=== PATIENT | male | born 1940 | race Caucasian/White ===

== ENCOUNTER 2021-01-26 08:30 | Emergency (ER) | payer MEDICARE, SELFPAY ==
[2021-01-26 08:40] VITALS: BP 153/92; PULSE 71; RESP 15; TEMP 36.8; O2SAT 98
[2021-01-26] MEDS: methylPREDNISolone SOD SUCC 125 MG VIAL IV PUSH (09:20)
[2021-01-26] MEDS: FAMOTIDINE 20 MG/2 ML VIAL IV PUSH (09:21)
[2021-01-26] MEDS: diphenhydrAMINE HCl INJ 50 MG/ML VIAL 25 MG IV PUSH (09:25)
[2021-01-26 09:51] LABS: Basophils Percent Auto 0.5 % (0.2-1.2); Eosinophils Absolute Auto 0.4 K/mm3 (0-0.3); Eosinophils Percent Auto 4.4 % (0-4.4); Hematocrit 36.9 % (42.0-52.0); Hemoglobin 12.3 g/dL (14.0-18.0); Immature Granulocyte Absolute 0.03 K/mm3 (0.00-0.031); Immature Granulocyte Percent A 0.4 % (0-0.5); Lymphocytes Absolute Auto 2.25 K/mm3 (0.9-3.2); Lymphocytes Percent Auto 27.3 % (18.3-44.2); Mean Corpuscular HGB Conc 33.3 g/dl (32-36); Mean Corpuscular Hemoglobin 32.4 pg (26-34); Mean Corpuscular Volume 97.1 fl (80-100); Mean Platelet Volume 10.6 fl (7.4-10.4); Monocytes Absolute Auto 0.8 K/mm3 (0.1-0.6); Monocytes Percent Auto 9.7 % (2.6-8.5); Neutrophils Absolute Auto 4.8 K/mm3 (1.3-6.7); Neutrophils Percent Auto 57.7 % (45.5-73.1); Platelet Count Result 197 k/mm3 (150-375); Red Cell Distribution Width 13.2 % (11.5-14.5); White Blood Count 8.2 K/mm3 (4.5-10.0)
[2021-01-26 10:11] LABS: Alanine Aminotransferase 12 U/L (4-50); Albumin Level 3.8 g/dL (3.5-5.1); Alkaline Phosphatase 76 U/L (38-126); Anion Gap 9 mmol/L (8-16); Aspartate Amino Transferase 26 U/L (17-59); Bilirubin,Total 0.6 mg/dL (0.2-1.3); Blood Urea Nitrogen 13 mg/dL (9-20); Carbon Dioxide 22 mmol/L (22-30); Chloride 102 mmol/L (98-107); Cholesterol 147 mg/dL (0-200); Estimated CRCL calculation 77 ml/min; Estimated Glomerular Filt Rate > 60; Glucose 210 mg/dL (65-110); HDL Direct 35 mg/dL; Potassium 3.9 mmol/L (3.4-5.0); Sodium 133 mmol/L (137-145); Triglycerides 238 mg/dL (<150)
--- NOTE | 2021-01-26 10:11 | ED.GENADULT ---
HPI - General Adult General Chief complaint: Unspecified Stated complaint: facial swelling/ itching Time Seen by Provider: 01/26/21 08:31 History of Present Illness HPI narrative: Patient is an 80-year-old male who presents ER for concern for allergic reaction. Reports last night around 4 AM he woke up and he felt like he had a carlisle which he does not have. He was itchy and felt like he was swollen and his felt he was slightly pink. He took some Benadryl which improved the symptoms. Patient still thinks he has speech that is a little bit less clear due to a possibly swollen tongue but he has noted to be breathing or swelling and there is no obvious swelling at this time. He has had no recent change to his medications. PCP recommend he come to the ER to be evaluated. Patient is also requesting that routine blood work that was supposed be drawn today, be drawn in the ER. Related Data Home Medications Medication Instructions Recorded Confirmed antiarthritic combination no.2 900 mg PO 11/17/20 01/11/21 mg tablet cholecalciferol (vitamin D3) 10 10 mcg PO DAILY 11/17/20 01/11/21 mcg (400 unit) capsule metoprolol tartrate 25 mg tablet 25 mg PO DAILY 11/17/20 01/11/21 vitamin B complex 1 tablet PO DAILY 11/17/20 01/11/21 Allergies Allergy/AdvReac Type Severity Reaction Status Date / Time No Known Allergies Allergy Verified 01/26/21 08:47 Review of Systems Review of Systems: All systems reviewed & are unremarkable except as noted in HPI and below Constitutional: Constitutional: Denies chills and Denies fever(s) ENT: Denies lip swelling, Denies nasal congestion, Denies sore throat, Denies throat swelling and Reports tongue swelling Cardiovascular: Cardiovascular: Denies chest pain and Denies rapid heart rate Respiratory: Respiratory: Denies cough and Denies dyspnea Gastrointestinal: Gastrointestinal: Denies abdominal pain, Denies nausea and Denies vomiting PMFSH Past Medical History Medical History 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 One in the 80's and the other shoulder in the s Family History Family History Mother Heart disease Cerebrovascular accident Arthritis Father Diabetes mellitus Social History Social History Smoking status: Former smoker Alcohol intake: former Alcohol use details: quit in 1989 Substance use: never Exam Narrative: GENERAL: Well-appearing, well-nourished, and in no acute distress. HEAD: Normocephalic, atraumatic. ENT: Mucous membranes moist. No appreciable swelling to the face/lip/tongue. Normal posterior oropharynx. Phonating well. CHEST: Clear to auscultation. No respiratory distress. HEART: Regular rate and rhythm. Normal peripheral pulses. ABDOMEN: Soft, nontender, nondistended. EXTREMITIES: Normal range of motion. No edema. SKIN: Warm, dry, no rash. NEURO: Alert and oriented x3. PSYCH: Normal mood and affect. Course Course Emergency Course: Patient resting comfortably. Reports his mouth feels much better since he has been able to drink some water. No evidence of swelling. No slurred speech. Discharge home. Recommend scheduled Pepcid as this may be of benefit. Vital Signs Vital signs: Vital Signs Temperature 98.2 F 01/26/21 08:40 Pulse Rate 71 01/26/21 08:40 Respiratory Rate 15 01/26/21 08:40 Blood Pressure 153/92 H 01/26/21 08:40 Pulse Oximetry 98 01/26/21 08:40
[2021-01-26 10:22] LABS: LDL Cholesterol Direct 63 mg/dL
[2021-01-26 10:51] LABS: Hemoglobin A1C 9.9 % (<5.7)
[2021-01-26 11:19] LABS: Folic Acid 9.9 ng/mL (2.76->20)
[2021-01-26 11:20] VITALS: BP 159/91; PULSE 66; RESP 18; O2SAT 97
[2021-01-26 12:25] VITALS: BP 151/89; PULSE 71; RESP 18; O2SAT 97
[2021-01-26 12:33] LABS: Creatinine Urine 147.3 mg/dL
[2021-01-26 12:39] LABS: MALB Creatinine Ratio 26.5 mg/g (0-30); Microalbumin Urine Random 39.1 mg/L (0-16.7)
== END 2021-01-26 12:26 | disposition home or self-care (01) ==
PROVIDERS: Emergency Provider Emergency Medicine; PCP Internal Medicine
DX: T78.40XA Allergy, unspecified, initial encounter (principal); E11.40 Type 2 diabetes mellitus with diabetic neuropathy, unspecified; I48.91 Unspecified atrial fibrillation; I50.9 Heart failure, unspecified; I11.0 Hypertensive heart disease with heart failure; M81.0 Age-related osteoporosis without current pathological fracture; G20 Parkinson's disease; Z87.891 Personal history of nicotine dependence
CPT/HCPCS: 36415; 80053; 80061; 82043; 82607; 82746; 83036; 84443; 85025; 96374; 96375; 99284; J1200; J2930

== ENCOUNTER 2021-01-26 16:12 | Observation (INO) | payer MEDICARE, SELFPAY ==
--- NOTE | ~2021-01-26 | CT_ITS ---
EXAMINATION: CT BRAIN W/O DATE: 01/26/2021 21:56 INDICATION: TIA TECHNIQUE: Computed tomography (CT) of the head was performed without intravenous contrast. The dose- length product was 605.33 mGy-cm. Automated exposure control and iterative reconstruction technique w ere employed. COMPARISON: No prior studies for comparison. FINDINGS: Decreased brain parenchymal volume for age. There are scattered mild periventricular and hunt bcortical white matter changes, most likely related to small vessel ischemic disease (microangiopathy ). Normal danielson-white differentiation. No acute intracranial hemorrhage, infarction, mass or mass effe ct. No ventriculomegaly or midline shift. Midline sagittal images demonstrate a normal corpus callosum, c raniovertebral junction and sella turcica. Basilar cisterns are patent. Paranasal sinuses are unremarkable. There are bilateral mastoid effusions. No depressed skull fractur es. IMPRESSION: 1. No acute intracranial abnormality. 2: Chronic age-related findings. Reviewed, dictated and finalized at location A.
--- NOTE | ~2021-01-26 | US_ITS ---
EXAMINATION: US carotid duplex BI DATE: 01/27/2021 13:26 INDICATION: Stroke. Ataxia. TECHNIQUE: Grayscale, color Doppler, and pulsed Doppler images of the cervical carotid arteries were obtained. The degree of vessel stenosis is placed in one of the following categories: normal, <50%, 5 0-69%, >=70% but less than near-occlusion, near-occlusion, or total occlusion. Note that percent sten osis relative to normal distal artery lumen diameter is indirectly measured from velocity measurement s as described by Sarkis, et al. Radiology 2003; 229:340-346. COMPARISON: None. FINDINGS: RIGHT: The right common carotid artery (CCA) peak systolic velocity (PSV) is 79 cm/s. The right internal car otid artery (ICA) PSV is 61 cm/s. The right ICA end-diastolic velocity (EDV) is 12 cm/s. The right IC A/CCA PSV ratio is 0.8. Grayscale and color Doppler images yield an estimate of <50% diameter reducti on from plaque in the ICA. There is antegrade flow in the right vertebral artery. LEFT: The left CCA PSV is 58 cm/s. The left ICA PSV is 56 cm/s. The left ICA EDV is 13 cm/s. The left ICA/C CA PSV ratio is 1.0. Grayscale and color Doppler images yield an estimate of <50% diameter reduction from plaque in the ICA. There is antegrade flow in the left vertebral artery. IMPRESSION: 1. <50% stenosis in the right internal carotid artery. 2. <50% stenosis in the left internal carotid artery. Reviewed, dictated and finalized at location A.
--- NOTE | ~2021-01-26 | MR_ITS ---
EXAMINATION: MR brain/brain stem wo con DATE: 01/27/2021 12:48 INDICATION: Transient ischemic attack. Ataxia. Unable to walk. TECHNIQUE: Magnetic resonance imaging (MRI) of the brain and brainstem was performed without intraven ous contrast. Sequences included sagittal and axial T1-weighted FSE, axial diffusion-weighted FS EPI, axial T2*-weighted GRE, axial T2-weighted FLAIR Propeller, and axial T2-weighted Propeller. Apparent diffusion coefficient (ADC) maps were created. COMPARISON: Head CT 01/26/2021 FINDINGS: There is a dystrophic calcification in left parietal lobe. There is no intracranial hemorrh age, acute infarction, or abnormal intracranial mass lesion. There are scattered areas of nonspecific increased T2-weighted signal intensity in the cerebral white matter and corinne. The ventricles are nor mal in size. There is mild mucosal thickening in the ethmoid sinuses. The orbits are normal. There ar e bilateral mastoid effusions. IMPRESSION: 1. Mild nonspecific cerebral white matter disease and pontine disease, which likely represents chroni c small vessel ischemic disease. Reviewed, dictated and finalized at location A. IMPRESSION: 1. Mild nonspecific cerebral white matter disease and pontine disease, which robert cyr represents chronic small vessel ischemic disease.
[2021-01-26 17:03] VITALS: BP 136/78; PULSE 103; RESP 18; TEMP 36.4; O2SAT 100
--- NOTE | 2021-01-26 17:14 | ECG_ITS ---
Measurements Intervals [place] Rate: 89 P: 55 MS: 192 QRS: -19 QRSD: 106 T: -2 QT: 390 QTc: 476 Interpretive Statements SINUS RHYTHM BORDERLINE T WAVE ABNORMALITY- INFERIOR LEADS BASELINE ARTIFACT- I, II, III, AVR, AVL, AVF, V2-V6 BORDERLINE ECG Electronically Signed On 01-26-2021 20:57:15 CDT by Herman Mcclendon D.O.
[2021-01-26 19:06] VITALS: PULSE 112
--- NOTE | 2021-01-26 19:30 | PC.NURSE ---
Assumed care of pt at this time, report taken from Lee Ann ADAIR. Per at bedside, pts symptoms started at approx 1300 this afternoon. reports generalized weakness, confusion, and facial droop. Pt currently A&Ox4, no facial droop noted. Pt denies numbness or tingling, no complaints at this time. Updated pt and family of POC.
[2021-01-26 19:44] LABS: Basophils Percent Auto 0.1 % (0.2-1.2); Hematocrit 39.5 % (42.0-52.0); Immature Granulocyte Absolute 0.05 K/mm3 (0.00-0.031); Immature Granulocyte Percent A 0.6 % (0-0.5); Lymphocytes Absolute Auto 0.75 K/mm3 (0.9-3.2); Lymphocytes Percent Auto 8.3 % (18.3-44.2); Mean Corpuscular HGB Conc 32.9 g/dl (32-36); Mean Corpuscular Volume 97.3 fl (80-100); Mean Platelet Volume 10.8 fl (7.4-10.4); Monocytes Absolute Auto 0.1 K/mm3 (0.1-0.6); Monocytes Percent Auto 1.1 % (2.6-8.5); Neutrophils Absolute Auto 8.1 K/mm3 (1.3-6.7); Neutrophils Percent Auto 89.9 % (45.5-73.1); Platelet Count Result 200 k/mm3 (150-375); Red Blood Count 4.06 M/mm3 (4.6-6.20); Red Cell Distribution Width 13.1 % (11.5-14.5); White Blood Count 9.1 K/mm3 (4.5-10.0)
[2021-01-26 19:58] LABS: Albumin Level 4.1 g/dL (3.5-5.1); Alkaline Phosphatase 78 U/L (38-126); Anion Gap 12 mmol/L (8-16); Aspartate Amino Transferase 37 U/L (17-59); Bilirubin,Total 0.6 mg/dL (0.2-1.3); Blood Urea Nitrogen 17 mg/dL (9-20); Calcium 9.3 mg/dL (8.4-10.2); Carbon Dioxide 19 mmol/L (22-30); Chloride 101 mmol/L (98-107); Estimated CRCL calculation 55 ml/min; Estimated Glomerular Filt Rate > 60; Glucose 366 mg/dL (65-110); Potassium 4.4 mmol/L (3.4-5.0); Sodium 132 mmol/L (137-145)
[2021-01-26 20:11] LABS: Alanine Aminotransferase 40 U/L (4-50)
[2021-01-26 20:14] VITALS: BP 130/82; PULSE 81; RESP 17; O2SAT 95
[2021-01-26 20:24] LABS: Add Urine Microscopic? YES; Appearance Urine Clear (Clear); Bacteria Urine Trace /hpf; Bilirubin Urine Negative (Negative); Blood Urine Negative (Negative); Color Urine Straw (Yellow); Glucose Urine UA 3+ mg/dL (Negative); Ketones Urine Trace mg/dL (Negative); Leukocyte Esterase Ur Negative LEU/UL (Negative); Nitrate Urine Negative (Negative); Protein Urine Negative (Negative); RBC Urine 0-2 /hpf (0-2); Specific Grav Ur 1.016 (1.001-1.035); Urobilinogen Urine Negative mg/dL (<2.0); WBC Urine 0-3 /hpf
[2021-01-26 21:13] LABS: Glucose Point of Care 362 mg/dl (65-105)
--- NOTE | 2021-01-26 21:45 | PC.NURSE ---
Pt to Ct via stretcher at this time.
[2021-01-26 22:02] VITALS: BP 161/88; PULSE 78; RESP 19; O2SAT 95
--- NOTE | 2021-01-26 23:04 | ED.WEAKNESS ---
HPI - Weakness General Chief complaint: Weakness Stated complaint: Sent By Dr Ray Time Seen by Provider: 01/26/21 18:40 Source: patient Mode of arrival: EMS Limitations: no limitations History of Present Illness HPI Narrative: 80-year-old with a history of Parkinson's, diabetes, A. fib TIA was brought in from home with complaints of inability to walk and unable to balance himself. Patient's reports that they were in the ER earlier this morning for allergic reaction and was later discharged home. Soon after he reached home patient was unable to get out of the car ambulate even few steps. However she managed to take inside the house with the chair patient was leaning towards the right, had right facial droop. Patient states that she called 911 and was later brought here to the ER. Upon arrival to the ER his symptoms much subsided. He denies any headache. His reports that she cannot manage him at home as he is unable to walk. She wants him to be admitted to the hospital for prison home placement. Patient presently denies any chest pain or shortness of breath, nausea or vomiting. MD Complaint: difficulty walking Onset (ago): hour(s) (2) Duration: constant Location: LLE and RLE Migration: none Severity: moderate Relieving factors: none Exacerbating factors: none Associated symptoms: denies other symptoms Related Data Home Medications Medication Instructions Recorded Confirmed antiarthritic combination no.2 900 mg PO 11/17/20 01/11/21 mg tablet cholecalciferol (vitamin D3) 10 10 mcg PO DAILY 11/17/20 01/11/21 mcg (400 unit) capsule metoprolol tartrate 25 mg tablet 25 mg PO DAILY 11/17/20 01/11/21 vitamin B complex 1 tablet PO DAILY 11/17/20 01/11/21 Allergies Allergy/AdvReac Type Severity Reaction Status Date / Time No Known Allergies Allergy Verified 01/26/21 08:47 Review of Systems Review of Systems: All systems reviewed & are unremarkable except as noted in HPI and below Constitutional: Constitutional: Reports no additional constitutional complaints Eyes: Eyes: Reports no additional eye complaints ENT: Reports system reviewed and no additional complaints, except as documented Cardiovascular: Cardiovascular: Reports no additional cardiovascular complaints Respiratory: Respiratory: Reports no additional respiratory complaints Gastrointestinal: Gastrointestinal: Reports no additional gastrointestinal complaints Musculoskeletal: Musculoskeletal: Reports as per HPI Neurologic: Reports as per HPI PMFSH Past Medical History Medical History 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 One in the 's and the other shoulder in the 's Family History Family History Mother Heart disease Cerebrovascular accident Arthritis Father Diabetes mellitus Social History Social History Smoking status: Former smoker Alcohol intake: former Alcohol use details: quit in 1989 Substance use: never Exam Narrative: GENERAL: Well-appearing, well-nourished, and in no acute distress. HEAD: Normocephalic, atraumatic. EYES: PERRLA and EOMI.. NECK: Supple. CHEST: Clear to auscultation. No respiratory distress. HEART: Regular rate and rhythm. No murmur heard. Normal peripheral pulses. ABDOMEN: Soft, nontender, nondistended, normal active bowel sounds. EXTREMITIES: Normal range of motion. No edema. SKIN: Warm, dry, no rash. NEURO: No foc
--- NOTE | 2021-01-26 23:17 | PM.IMHP ---
H&P: HPI History of Present Illness Date/Time: 01/26/21 23:17 Chief Complaint: unable to walk Narrative: 80-year-old with a history of Parkinson's disease, diabetes, A. fib on anticoagulation, history of recurrent TIA was brought in from home with complaints of inability to walk and unable to balance himself. patient was here earlier in the morning for allergy reaction and was noted to have swelling in his face which improved with treatment and was discharged home. Soon after he reached home he was unable to get out of the car and ambulate even few steps. His noted to have leaning towards the right side along with right facial droop per his who brought her back to the ER by calling EMS. upon arrival in the ER his symptoms are already subsided and was noted to have NIH scale of 0. His CT scan head has no acute intracranial abnormality along with chronic age-related findings. 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 With him being able to walk decision was made to getting admitted for possible placement . Review of Systems Review of Systems: - CONSTITUTIONAL: Denies weight loss, fever and chills. - HEENT: Denies changes in vision and hearing - RESPIRATORY: Denies SOB and cough. - CV: Denies palpitations and CP. - GI: Denies abdominal pain, nausea, vomiting and diarrhea. - : Denies dysuria and urinary frequency. - MSK: Denies myalgia and joint pain. - SKIN: Denies rash and pruritus. - NEUROLOGICAL: Denies headache and syncope. - PSYCHIATRIC: Denies recent changes in mood. Denies anxiety and depression. 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 One in the 80's and the other shoulder in the 's Family History Family History Mother Heart disease Cerebrovascular accident Arthritis Father Diabetes mellitus Social History Social History Years smoked: 30 Smoking status: Former smoker Tobacco type: pipe and cigars Alcohol intake: never Alcohol use details: quit in 1989 Substance use: never Spiritual care concerns: No Meds Home Medications and Allergies Home Medications Medication Instructions Recorded Confirmed Type cholecalciferol (vitamin D3) 10 10 mcg PO DAILY 11/17/20 01/27/21 History mcg (400 unit) capsule metoprolol tartrate 25 mg tablet 12.5 mg PO DAILY 11/17/20 01/27/21 History vitamin B complex 1 tablet PO DAILY 11/17/20 01/27/21 History glipizide 5 mg tablet 10 mg PO BID #120 tablet 12/03/20 01/27/21 Rx rivastigmine tartrate 1.5 mg 1.5 mg PO BID #60 cap 12/03/20 01/27/21 Rx capsule tamsulosin 0.4 mg capsule 0.4 mg PO DAILY #90 cap 12/03/20 01/27/21 Rx insulin lispro 100 unit/mL 1 sliding scale dose SUBCUT 12/06/20 01/27/21 Rx subcutaneous cartridge USEASDIRECTD #15 ml metformin 1,000 mg tablet 1,000 mg PO BID #180 tablet 12/14/20 01/27/21 Rx rivaroxaban 20 mg tablet 20 mg PO DAILY #90 tablet 12/21/20 01/27/21 Rx omeprazole 20 mg capsule,delayed 20 mg PO .qod #45 cap 12/28/20 01/27/21 Rx release furosemide 40 mg tablet 40 mg PO QAM #90 tablet 01/18/21 01/27/21 Rx pravastatin 20 mg tablet 20 mg PO DAILY #90 tablet 01/18/21 01/27/21 Rx carbidopa 25 mg-
--- NOTE | 2021-01-26 23:25 | PC.NURSE ---
Pt transferred to bedside commode with one assist. Steady on feet.
[2021-01-27] VITALS (12 sets, daily range): BP systolic 128–144; BP diastolic 69–90; PULSE 68–95; RESP 16–22; TEMP 35.7–36.8; O2SAT 96–100; BMI 28.7
--- NOTE | 2021-01-27 | ECHO_ITS ---
Patient Info Name: Duran Jansen Age: 80 years : 1940 Gender: Male Ht: 71 in Wt: 205 lbs BSA: 2.18 m2 HR: 67 bpm BP: 140 / 80 mmHg Technical Quality: Good Exam Date: 01/27/2021 9:28 AM Exam Location: [facility] Pulmonary Patient Status: Inpatient Admit Date: 01/26/2021 Staff Ordering Physician: Vikash Del Angel MD [employer] Technician: Tracy Majano RDCS Attending Provider: Vikash Del Angel MD Exam Type: CA echo doppler color flow Study Info Indications - STROKE Complete two-dimensional, color flow and Doppler transthoracic echocardiogram is performed. Summary 1. Complete two-dimensional, color flow and Doppler transthoracic echocardiogram is performed. 2. Left ventricular chamber dimension is normal. 3. Left ventricular systolic function is normal, estimated at 60-65%. 4. There is mildly increased left ventricular wall thickness. 5. The left ventricular diastolic function is abnormal. 6. E/e' 12 is mildly elevated. 7. Global longitudinal strain is abnormal at -12.0%. 8. Left atrial chamber dimension is mildly enlarged. 9. There is moderate aortic valve sclerosis. 10. There is mild aortic valve stenosis with a peak velocity of 247 cm/s, mean gradient of 10 mmHg, and aortic valve area of 1.7 cm2. 11. There is trace aortic valve regurgitation. 12. The mitral valve has moderately calcified annulus. 13. There is mild mitral valve regurgitation. 14. There is trace tricuspid valve regurgitation. 15. No pulmonary hypertension, estimated pulmonary arterial systolic pressure is 34 mmHg. 16. The aortic root size at the sinus of Valsalva is borderline dilated at 4.1 cm. Left Ventricle E/e' 12 is mildly elevated. Global longitudinal strain is abnormal at -12.0%. Left ventricular chamber dimension is normal. Left ventricular systolic function is normal, estimated at 60-65%. There is mildly increased left ventricular wall thickness. The left ventricular diastolic function is abnormal. Right Ventricle Right ventricular chamber dimension is normal. Right ventricular systolic function is normal. Left Atria Left atrial chamber dimension is mildly enlarged. Right Atria Right atrial chamber dimension is normal. Aortic Valve The aortic valve is trileaflet. There is moderate aortic valve sclerosis. There is mild aortic valve stenosis with a peak velocity of 247 cm/s, mean gradient of 10 mmHg, and aortic valve area of 1.7 cm2. There is trace aortic valve regurgitation. Pulmonic Valve There is no pulmonic regurgitation. Mitral Valve The mitral valve has moderately calcified annulus. There is no mitral valve stenosis. There is mild mitral valve regurgitation. Tricuspid Valve There is trace tricuspid valve regurgitation. No pulmonary hypertension, estimated pulmonary arterial systolic pressure is 34 mmHg. Pericardium/Pleural There is no pericardial effusion. Inferior Vena Cava Normal inferior vena cava with >50% collapse upon inspiration consistent with normal right atrial pressure, 5 mmHg. Aorta The aortic root size at the sinus of Valsalva is borderline dilated at 4.1 cm. Left Ventricular Outflow Tract Name Value Normal LVOT 2D LVOT Diameter 2.0 cm L
--- NOTE | 2021-01-27 00:49 | ADMGEN ---
This patient, Duran Jansen, was admitted to Medical Room 248-. Patient/family oriented to hospital policies and general routines including ID bracelet, bed and alarms, visiting hours, pain management, procedures, bathroom and other care routines, personal items, smoking policy, room service/diet, and visiting hours. Information on how to activate the Rapid Response Team has been discussed. Patient/Family are encouraged to report perceived risks to care and to ask questions if they do not understand what they are told or what they should do.
[2021-01-27 02:25] LABS: Glucose Point of Care 394 mg/dl (65-105)
[2021-01-27] MEDS: INSULIN ASPART (*BKC) 100 UNITS/ML SUB-Q ×4 (04:29→17:43)
[2021-01-27 08:11] LABS: Glucose Point of Care 285 mg/dl (65-105)
[2021-01-27] MEDS: CARBIDOPA/LEVODOPA 25/100 MG TABLET 1 TABLET PO ×4 (08:13→20:25)
[2021-01-27] MEDS: glipiZIDE 5 MG TABLET 10 MG PO (08:13)
[2021-01-27] MEDS: metFORMIN HCL 500 MG TABLET 1000 MG PO ×2 (08:13→17:34)
[2021-01-27] MEDS: PRAVASTATIN SODIUM 20 MG TABLET PO (08:14)
[2021-01-27] MEDS: VITAMIN B COMPLEX CAPSULE 1 CAP PO (08:14)
[2021-01-27] MEDS: PANTOPRAZOLE 40 MG TABLET PO (08:14)
[2021-01-27] MEDS: LOSARTAN POTASSIUM 100 MG TABLET PO (08:14)
[2021-01-27] MEDS: CHOLECALCIFEROL 400 UNITS TABLET (VIT D) PO (08:14)
[2021-01-27] MEDS: TAMSULOSIN HCL 0.4 MG CAPSULE PO (08:14)
[2021-01-27] MEDS: RIVASTIGMINE TARTRATE 1.5 MG CAPSULE PO ×2 (10:15→20:25)
[2021-01-27] MEDS: METOPROLOL SUCCINATE EXT REL 12.5 MG TABCR PO (10:15)
[2021-01-27 10:51] LABS: Glucose Point of Care 318 mg/dl (65-105)
[2021-01-27 12:21] LABS: Glucose Point of Care 313 mg/dl (65-105)
--- NOTE | 2021-01-27 13:17 | PM.IMPN ---
Progress Note: A&P Assessment and Plan (1) TIA (transient ischemic attack): Code(s): G45.9 - Transient cerebral ischemic attack, unspecified Status: Acute Assessment and Plan: Hx of recurrent TIAs in the past MRI brain-->Mild nonspecific cerebral white matter disease and pontine disease, which likely represents chronic small vessel ischemic disease Carotid ultrasound pending Echocardiogram reviewed EF 60-65% Continue rivaroxaban PT/OT Hold diuretics S/p gentle IV fluid (2) Unsteady gait: Code(s): R26.81 - Unsteadiness on feet Status: Acute Assessment and Plan: Inability to walk on yesterday for transient period, unclear etiology Could be related to his underlying Parkinson's disease CT head negative PT/OT Will need rehab at d/c (3) Arthritis of both knees: Code(s): M17.0 - Bilateral primary osteoarthritis of knee Status: Acute Assessment and Plan: Supportive care PT/OT (4) Hyperlipidemia: Code(s): E78.5 - Hyperlipidemia, unspecified Status: Acute (5) CHF (congestive heart failure): Code(s): I50.9 - Heart failure, unspecified Status: Acute Assessment and Plan: No acute exacerbation ECHO reviewed Monitor for s/s of overload (6) Parkinson disease: Code(s): G20 - Parkinson's disease Status: Acute Assessment and Plan: Continue Sinemet (7) A-fib: Code(s): I48.91 - Unspecified atrial fibrillation Status: Acute Assessment and Plan: On Xarelto continue same Monitor (8) Diabetes mellitus, insulin dependent (IDDM), controlled: Status: Acute Assessment and Plan: Hx of diabetic neuropathy Resume home meds SSI, accuchecks Monitor Additional Plan # DVT prophylaxis already on rivaroxaban # Full code status Subjective Date/time seen: 01/27/21 13:17 Interval history: Pt seen and evaluated; labs and diagnostic reports reviewed; no acute events overnight; pt denies any new complaints Review of Systems Review of Systems: All systems reviewed & are unremarkable except as noted in HPI and below Exam Narrative: GENERAL: Well-appearing, well-nourished, and in no acute distress. HEAD: Normocephalic, atraumatic. EYES: PERRLA and EOMI.. NECK: Supple. Nontender CHEST: Clear to auscultation. No respiratory distress. HEART: Regular rate and rhythm. No murmur heard. Normal peripheral pulses. ABDOMEN: Soft, nontender, nondistended, normal active bowel sounds. EXTREMITIES: Normal range of motion. No edema. SKIN: Warm, dry, no rash. NEURO: No focal deficits. Alert and oriented x3. PSYCH: Normal mood and affect. Objective Data Vital Signs Vital Signs: Vital Signs - 24 hr 01/26/21 17:03 01/26/21 19:06 01/26/21 20:14 Temperature 36.4 C Pulse Rate 103 H 112 H 81 Respiratory Rate 18 17 Blood Pressure 136/78 130/82 Pulse Oximetry 100 95 01/26/21 22:02 01/27/21 00:00 01/27/21 02:17 Temperature 36.4 C Pulse Rate 78 90 90 Respiratory Rate 19 20 Blood Pressure 161/88 H 141/86 H Pulse Oximetry 95 97 01/27/21 04:00 01/27/21 05:09 01/27/21 08:00 Temperature 36.1 C L 36.1 C L Pulse Rate 89 95 72 Respiratory Rate 22 H 22 H Blood Pressure 140/80 140/80 Pulse Oximetry 96 96 01/27/21 10:15 Temperature Pulse Rate 95 Respiratory Rate Blood Pressure Pulse Oximetry Intake/Output Intake/Output: Intake & Output 01/24/21 01/25/21 01/26/21 01/27/21 23:59 23:59 23:59 23:59 Intake Total 510 Balance 510 Meds/Results Medications: Active Medications Generic Name Dose Route Start Last Admin Trade Name Freq PRN Reason Stop Dose Admin Acetaminophen 650 mg 01/26/21 22:57 Acetaminophen 325 Mg Tablet PO Q4H PRN Mild Pain (1-3) or Fever Carbidopa/Levodopa 1 tablet 01/27/21 08:00 01/27/21 08:13 Carbidopa/Levodopa 25/100 Mg Tablet PO 1 tablet 0800,1200,1700,2100 ALEX Administration Dextrose 12.5 gm
[2021-01-27] MEDS: ACETAMINOPHEN 500 MG TABLET 1000 MG PO (14:39)
[2021-01-27] MEDS: diphenhydrAMINE HCl INJ 50 MG/ML VIAL 25 MG IV PUSH (14:41)
[2021-01-27 14:56] LABS: Glucose Point of Care 283 mg/dl (65-105)
[2021-01-27] MEDS: methylPREDNISolone SOD SUCC 40 MG VIAL IV PUSH (16:04)
[2021-01-27 16:49] LABS: EDCOVIDSCREEN Negative (Negative)
[2021-01-27] MEDS: RIVAROXABAN 20 MG TABLET PO (17:34)
[2021-01-27 17:47] LABS: Glucose Point of Care 350 mg/dl (65-105)
[2021-01-27] MEDS: FAMOTIDINE 20 MG TABLET PO (20:25)
[2021-01-27] MEDS: diphenhydrAMINE HCl CAP 25 MG CAPSULE PO (20:25)
[2021-01-27 20:56] LABS: Glucose Point of Care 387 mg/dl (65-105)
[2021-01-27] MEDS: predniSONE 20 MG TABLET 40 MG PO (22:42)
[2021-01-27] MEDS: INSULIN GLARGINE (*BKC) 100 UNITS/ML 10 UNITS SUB-Q (22:42)
[2021-01-27] MEDS: LORazepam INJ (*CRX) 2 MG/ML VIAL 0.5 MG IV PUSH (23:52)
[2021-01-28] VITALS: PULSE 104
[2021-01-28 03:25] LABS: Glucose Point of Care 339 mg/dl (65-105)
[2021-01-28 04:00] VITALS: PULSE 67
[2021-01-28 05:29] VITALS: BP 118/74; PULSE 71; RESP 16; TEMP 36.7; O2SAT 98
[2021-01-28] MEDS: diphenhydrAMINE HCl CAP 25 MG CAPSULE PO ×2 (06:04→13:44)
[2021-01-28 06:42] LABS: Glucose Point of Care 289 mg/dl (65-105)
[2021-01-28] MEDS: INSULIN ASPART (*BKC) 100 UNITS/ML SUB-Q ×2 (07:54→11:51)
[2021-01-28 08:00] VITALS: BP 144/62; PULSE 75; PULSE 92; PULSE 96; RESP 16; TEMP 36.4; O2SAT 98
[2021-01-28] MEDS: METOPROLOL SUCCINATE EXT REL 12.5 MG TABCR PO (08:00)
[2021-01-28] MEDS: CHOLECALCIFEROL 400 UNITS TABLET (VIT D) PO (08:01)
[2021-01-28] MEDS: FAMOTIDINE 20 MG TABLET PO (08:01)
[2021-01-28] MEDS: VITAMIN B COMPLEX CAPSULE 1 CAP PO (08:01)
[2021-01-28] MEDS: LOSARTAN POTASSIUM 100 MG TABLET PO (08:01)
[2021-01-28] MEDS: PRAVASTATIN SODIUM 20 MG TABLET PO (08:01)
[2021-01-28] MEDS: TAMSULOSIN HCL 0.4 MG CAPSULE PO (08:01)
[2021-01-28] MEDS: metFORMIN HCL 500 MG TABLET 1000 MG PO (08:02)
[2021-01-28] MEDS: CARBIDOPA/LEVODOPA 25/100 MG TABLET 1 TABLET PO ×2 (08:02→11:52)
[2021-01-28] MEDS: RIVASTIGMINE TARTRATE 1.5 MG CAPSULE PO (08:02)
[2021-01-28] MEDS: predniSONE 20 MG TABLET 40 MG PO (08:35)
[2021-01-28 09:56] LABS: Anion Gap 11 mmol/L (8-16); Blood Urea Nitrogen 26 mg/dL (9-20); Calcium 9.3 mg/dL (8.4-10.2); Carbon Dioxide 21 mmol/L (22-30); Chloride 100 mmol/L (98-107); Estimated CRCL calculation 61 ml/min; Estimated Glomerular Filt Rate > 60; Glucose 392 mg/dL (65-110); Potassium 4.8 mmol/L (3.4-5.0); Sodium 132 mmol/L (137-145)
[2021-01-28 11:49] LABS: Glucose Point of Care 361 mg/dl (65-105)
[2021-01-28 12:00] VITALS: BP 136/84; PULSE 92; RESP 16; TEMP 36.1; O2SAT 97
[2021-01-28 12:04] LABS: Glucose Point of Care 397 mg/dl (65-105)
[2021-01-28 14:33] LABS: Glucose Point of Care 413 mg/dl (65-105)
[2021-01-28] MEDS: INSULIN ASPART (*BKC) 100 UNITS/ML 11 UNITS SUB-Q (14:40)
--- NOTE | 2021-01-28 15:38 | PM.DS ---
DS: Admitting Diagnosis Discharge Date 01/28/21 Admitting Diagnosis unable to walk DS: Discharge Diagnosis Discharge Diagnosis (1) TIA (transient ischemic attack): Code(s): G45.9 - Transient cerebral ischemic attack, unspecified Status: Acute Assessment and Plan: Hx of recurrent TIAs in the past MRI brain-->Mild nonspecific cerebral white matter disease and pontine disease, which likely represents chronic small vessel ischemic disease Carotid ultrasound pending Echocardiogram reviewed EF 60-65% Continue rivaroxaban PT/OT Hold diuretics S/p gentle IV fluid (2) Unsteady gait: Code(s): R26.81 - Unsteadiness on feet Status: Acute Assessment and Plan: Inability to walk on yesterday for transient period, unclear etiology Could be related to his underlying Parkinson's disease CT head negative PT/OT Will need rehab at d/c (3) Arthritis of both knees: Code(s): M17.0 - Bilateral primary osteoarthritis of knee Status: Acute Assessment and Plan: Supportive care PT/OT (4) Hyperlipidemia: Code(s): E78.5 - Hyperlipidemia, unspecified Status: Acute (5) CHF (congestive heart failure): Code(s): I50.9 - Heart failure, unspecified Status: Acute Assessment and Plan: No acute exacerbation ECHO reviewed Monitor for s/s of overload (6) Parkinson disease: Code(s): G20 - Parkinson's disease Status: Acute Assessment and Plan: Continue Sinemet (7) A-fib: Code(s): I48.91 - Unspecified atrial fibrillation Status: Acute Assessment and Plan: On Xarelto continue same Monitor (8) Diabetes mellitus, insulin dependent (IDDM), controlled: Status: Acute Assessment and Plan: Hx of diabetic neuropathy Resume home meds SSI, accuchecks Monitor DS: Summary Hospital Course Hospital Course: Mr. Jansen is an 80-year-old with a history of Parkinson's disease, diabetes, A. fib on anticoagulation, history of recurrent TIA was brought in from home with complaints of inability to walk and unable to balance himself. Patient was here earlier on day of admission for allergic reaction and was noted to have swelling in his face which improved with treatment and was discharged home. Soon after he reached home he was unable to get out of the car and ambulate even few steps. His noted to have leaning towards the right side along with right facial droop per his who brought her back to the ER by calling EMS. upon arrival in the ER his symptoms are already subsided and was noted to have NIH scale of 0. His CT scan head has no acute intracranial abnormality along with chronic age-related findings. He normally lives at home with his being his cloth beamer. With him being able to walk decision was made to getting admitted for possible placement. He has history of TIA therefore MRI of the brain was ordered to rule out any acute disease. MRI was consistent with chronic small vessel ischemic disease. Bilateral carotid duplex showed less than 50 percent stenosis. Echocardiogram showed EF of 60-65%. He was treated with IVF and physical therapy and occupational therapy. He is stable and will discharge to SNF today. Time Spent with Patient Time attestation: Total time spent providing and/or coordinating discharge services: Time spent: Greater than 30 minutes Exam Narrative: GENERAL: Well-appearing, well-nourished, and in no acute distress. HEAD: Normocephalic, atraumatic. EYES: PERRLA and EOMI.. NECK: Supple. Nontender CHEST: Clear to auscultation. No respiratory distress. HEART: Regular rate and rhythm. No murmur heard. Normal peripheral pulses. ABDOMEN: Soft, nontender, nondistended, normal active bowel sounds. EXTREMITIES: Normal range of motion. No edema. SKIN: Warm, dry, no rash. NEURO: No focal deficits. Alert and oriented x3. PSYCH: Normal mood and affect. DS: Data Data Completed and Pending Labs on day o
== END 2021-01-28 15:20 ==
LOC: ANHED 23:05 → ANH2MED 01-27 00:48
PROVIDERS: Nurse Practitioner Adult Health; Admitting Provider Internal Medicine; Emergency Provider Family Medicine; PCP Internal Medicine; Visit Provider Internal Medicine Nephrology
DX: G45.9 Transient cerebral ischemic attack, unspecified (principal); R26.81 Unsteadiness on feet; M17.0 Bilateral primary osteoarthritis of knee; E78.5 Hyperlipidemia, unspecified; I11.0 Hypertensive heart disease with heart failure; I50.9 Heart failure, unspecified; E11.42 Type 2 diabetes mellitus with diabetic polyneuropathy; G20 Parkinson's disease; I48.91 Unspecified atrial fibrillation; Z86.73 Personal history of transient ischemic attack (TIA), and cerebral infarction without residual deficits; Z79.4 Long term (current) use of insulin; Z79.01 Long term (current) use of anticoagulants; Z20.822 Contact with and (suspected) exposure to COVID-19
CPT/HCPCS: 36415; 70450; 70551; 80048; 80053; 80061; 81001; 82043; 82607; 82746; 82948; 83036; 84443; 85025; 87426; 93005; 93306; 93880; 96374; 96375; 97161; 97165; 97530; 97535; 99284; 99285; A9270; C9803; G0378; J1200; J1815; J2060; J2920; J2930; J7512

== ENCOUNTER 2021-02-16 10:10 | Outpatient (NON) | payer MEDICARE, SELFPAY ==
[2021-02-16 10:41] LABS: Basophils Absolute Auto 0.1 K/mm3 (0.0-0.1); Basophils Percent Auto 0.7 % (0.2-1.2); Eosinophils Absolute Auto 0.5 K/mm3 (0-0.3); Eosinophils Percent Auto 6.9 % (0-4.4); Hematocrit 35.3 % (42.0-52.0); Hemoglobin 12.1 g/dL (14.0-18.0); Immature Granulocyte Absolute 0.03 K/mm3 (0.00-0.031); Immature Granulocyte Percent A 0.4 % (0-0.5); Lymphocytes Absolute Auto 1.88 K/mm3 (0.9-3.2); Lymphocytes Percent Auto 27.6 % (18.3-44.2); Mean Corpuscular HGB Conc 34.3 g/dl (32-36); Mean Corpuscular Hemoglobin 32.2 pg (26-34); Mean Corpuscular Volume 93.9 fl (80-100); Mean Platelet Volume 10.6 fl (7.4-10.4); Monocytes Absolute Auto 0.5 K/mm3 (0.1-0.6); Monocytes Percent Auto 6.9 % (2.6-8.5); Neutrophils Absolute Auto 3.9 K/mm3 (1.3-6.7); Neutrophils Percent Auto 57.5 % (45.5-73.1); Platelet Count Result 209 k/mm3 (150-375); Red Blood Count 3.76 M/mm3 (4.6-6.20); White Blood Count 6.8 K/mm3 (4.5-10.0)
[2021-02-16 10:50] LABS: Alanine Aminotransferase 10 U/L (4-50); Albumin Level 3.8 g/dL (3.5-5.1); Alkaline Phosphatase 87 U/L (38-126); Anion Gap 11 mmol/L (8-16); Aspartate Amino Transferase 25 U/L (17-59); Bilirubin,Total 0.6 mg/dL (0.2-1.3); Blood Urea Nitrogen 11 mg/dL (9-20); Calcium 8.7 mg/dL (8.4-10.2); Carbon Dioxide 24 mmol/L (22-30); Chloride 105 mmol/L (98-107); Cholesterol 129 mg/dL (0-200); Estimated Glomerular Filt Rate > 60; Glucose 202 mg/dL (65-110); HDL Direct 33 mg/dL; Potassium 3.7 mmol/L (3.4-5.0); Sodium 140 mmol/L (137-145); Triglycerides 242 mg/dL (<150)
[2021-02-16 10:54] LABS: Hemoglobin A1C 10.2 % (<5.7)
[2021-02-16 10:57] LABS: Creatinine Urine 166.4 mg/dL
[2021-02-16 11:01] LABS: LDL Cholesterol Direct 62 mg/dL
[2021-02-16 11:02] LABS: MALB Creatinine Ratio 21.3 mg/g (0-30); Microalbumin Urine Random 35.5 mg/L (0-16.7)
[2021-02-16 11:56] LABS: Folic Acid 13.8 ng/mL (2.76->20)
== END 2021-02-16 10:11 | disposition home or self-care (01) ==
PROVIDERS: Visit Provider Internal Medicine
DX: E11.9 Type 2 diabetes mellitus without complications (principal); I11.0 Hypertensive heart disease with heart failure; N40.0 Benign prostatic hyperplasia without lower urinary tract symptoms; G20 Parkinson's disease
CPT/HCPCS: 80053; 80061; 82043; 82607; 82746; 83036; 84443; 85025

== ENCOUNTER 2021-08-18 07:16 | Outpatient (CLI) | payer MEDICARE, SELFPAY ==
[2021-08-18 08:04] LABS: Basophils Percent Auto 0.5 % (0.2-1.2); Eosinophils Absolute Auto 0.2 K/mm3 (0-0.3); Hematocrit 35.1 % (42.0-52.0); Hemoglobin 11.6 g/dL (14.0-18.0); Immature Granulocyte Absolute 0.02 K/mm3 (0.00-0.031); Immature Granulocyte Percent A 0.3 % (0-0.5); Lymphocytes Absolute Auto 2.26 K/mm3 (0.9-3.2); Lymphocytes Percent Auto 30.8 % (18.3-44.2); Mean Corpuscular Hemoglobin 31.6 pg (26-34); Mean Corpuscular Volume 95.6 fl (80-100); Mean Platelet Volume 10.3 fl (7.4-10.4); Monocytes Absolute Auto 0.5 K/mm3 (0.1-0.6); Monocytes Percent Auto 7.1 % (2.6-8.5); Neutrophils Absolute Auto 4.3 K/mm3 (1.3-6.7); Neutrophils Percent Auto 58.3 % (45.5-73.1); Platelet Count Result 212 k/mm3 (150-375); Red Blood Count 3.67 M/mm3 (4.6-6.20); White Blood Count 7.3 K/mm3 (4.5-10.0)
[2021-08-18 08:05] LABS: Hemoglobin A1C 8.5 % (<5.7)
[2021-08-18 08:06] LABS: Alanine Aminotransferase 20 U/L (4-50); Albumin Level 3.9 g/dL (3.5-5.1); Alkaline Phosphatase 78 U/L (38-126); Anion Gap 9 mmol/L (8-16); Aspartate Amino Transferase 29 U/L (17-59); Bilirubin,Total 0.5 mg/dL (0.2-1.3); Blood Urea Nitrogen 17 mg/dL (9-20); Calcium 8.6 mg/dL (8.4-10.2); Carbon Dioxide 22 mmol/L (22-30); Chloride 108 mmol/L (98-107); Cholesterol 147 mg/dL (0-200); Estimated Glomerular Filt Rate > 60; Glucose 182 mg/dL (65-110); HDL Direct 39 mg/dL; Potassium 3.6 mmol/L (3.4-5.0); Sodium 139 mmol/L (137-145); Triglycerides 179 mg/dL (<150)
[2021-08-18 08:18] LABS: LDL Cholesterol Direct 68 mg/dL
[2021-08-18 08:20] LABS: Creatinine Urine 177.4 mg/dL
[2021-08-18 08:25] LABS: MALB Creatinine Ratio 30.7 mg/g (0-30); Microalbumin Urine Random 54.4 mg/L (0-16.7)
[2021-08-18 08:38] LABS: Prostate Specific Antigen 0.5 ng/mL (< OR = 4.0)
== END 2021-08-18 07:17 | disposition home or self-care (01) ==
LOC: ANHLAB 07:27
PROVIDERS: PCP Internal Medicine; Visit Provider Internal Medicine
DX: Z12.5 Encounter for screening for malignant neoplasm of prostate (principal); M25.561 Pain in right knee; M25.562 Pain in left knee; I11.0 Hypertensive heart disease with heart failure; I50.9 Heart failure, unspecified; N40.0 Benign prostatic hyperplasia without lower urinary tract symptoms; Z51.81 Encounter for therapeutic drug level monitoring; Z79.899 Other long term (current) drug therapy
CPT/HCPCS: 36415; 80053; 80061; 82043; 82607; 82746; 83036; 84153; 84443; 85025; G0103

== ENCOUNTER 2022-04-23 11:15 | Inpatient (IN) | payer MEDICARE, MEDICAID, SELFPAY ==
--- NOTE | ~2022-04-23 | US_ITS ---
EXAMINATION:US venous doppler LE BI INDICATION:Leg edema TECHNIQUE: Multiple grayscale, color flow and Doppler images of the right and left lower extremity de ep venous systems were obtained and reviewed. COMPARISON:No prior studies for comparison. FINDINGS: The common femoral, superficial femoral and popliteal veins demonstrate normal respiratory variation, augmentation and compressibility. Color flow is also seen within the posterior tibial, pe roneal, greater saphenous and profunda veins. IMPRESSION: 1: No lower extremity deep venous thrombosis. Reviewed, dictated and finalized at location A. ONAL SALES TRAINER
--- NOTE | ~2022-04-23 | MR_ITS ---
EXAMINATION: MR brain/brain stem wo con DATE: 04/24/2022 13:44 INDICATION: Lower extremity weakness TECHNIQUE: Magnetic resonance imaging (MRI) of the brain and brainstem was performed without intraven ous contrast. Sequences included sagittal and axial T1-weighted SE, axial diffusion-weighted FS SE, a xial T2*-weighted GRE, axial 3D SWAN, axial T2-weighted FLAIR, and axial T2-weighted FSE. Apparent di ffusion coefficient (ADC) maps were created. COMPARISON: Head CT dated 04/23/2022 and brain MR dated 02/06/2021 FINDINGS: There are no areas of restricted diffusion to suggest acute infarction. No intracranial hemorrhage or abnormal intracranial mass lesion. Unchanged tiny focus of susceptibility artifact corresponding to a tiny dystrophic calcification in the left parietal lobe. There are scattered areas of nonspecific i ncreased T2-weighted signal intensity in the corinne and cerebral white matter, predominantly involving the deep and periventricular white matter. There are no intraparenchymal signal abnormalities seen on the other pulse sequences. Symmetric prominence of the sulci and ventricles consistent with moderate age-appropriate diffuse cerebral volume loss. There are no abnormal extra-axial fluid collections. F low voids are seen in the cerebral arteries on the T2-weighted sequences consistent with their expect ed patency. Prominent mucosal thickening in the left maxillary and sphenoid sinuses. Visualized orbit s and soft tissues are unremarkable. IMPRESSION: 1. No acute intracranial process. 2. Moderate scattered nonspecific cerebral and pontine white matter hypoattenuation consistent with c hronic small vessel ischemic disease. Reviewed, dictated and finalized at location A. DETASSELER IMPRESSION: 1. No acute intracranial process. 2. Moderate scattered nonspecific cerebral and pontine white matter hypoattenua tion consistent with chronic small vessel ischemic disease.
--- NOTE | ~2022-04-23 | XR_ITS ---
XR chest 1V portable 04/24/2022 14:39 Indication: Cough. Procedure: AP portable chest Comparison: No prior studies for comparison. Findings: Cardiomegaly. Mild interstitial edema. No pleural effusion or pneumothorax. Shallow inspira tion. No acute osseous abnormality. There were old right fourth and fifth rib fractures. Impression: 1: Cardiomegaly with mild interstitial edema. Reviewed, dictated and finalized at location A. TERER MAINTENANCE Impression: 1: Cardiomegaly with mild interstitial edema.
--- NOTE | ~2022-04-23 | XR_ITS ---
EXAM: XR abdomen/kub 1V DATE: 04/24/2022 15:27 HISTORY: distension . COMPARISON: None available. FINDINGS: Interstitial and senescent changes in the lung bases. Normal bowel gas pattern. Enlarged l iver. Pelvic phleboliths. Degenerative disc disease in the lumbar spine. Mild bilateral hip osteoarth ritis. IMPRESSION: No radiographic evidence of obstruction or ileus. Hepatomegaly. Reviewed, dictated and finalized at location K. UCT DEVELOPMENT ASSISTANT
--- NOTE | ~2022-04-23 | CT_ITS ---
EXAMINATION: CT brain wo con DATE: 04/23/2022 11:56 INDICATION: Mental status TECHNIQUE: Computed tomography (CT) of the head was performed without intravenous contrast. The dose- length product was 605.33 mGy-cm. Automated exposure control and iterative reconstruction technique w ere employed. COMPARISON: None FINDINGS: Generalized atrophy. There are scattered mild periventricular and subcortical white matter changes, most likely related to small vessel ischemic disease (microangiopathy). There is intracrania l atherosclerosis. No acute intracranial hemorrhage, infarction, mass or mass effect. No ventriculome ubaldo or midline shift. Basilar cisterns are patent. There is mucosal thickening of the left maxillary and the ethmoid air cells. There is bilateral mastoid effusions. Midline sagittal images are unremar kable. IMPRESSION: 1. No acute intracranial abnormality. 2: Mild sinus disease. 3: Chronic age-related findings. Reviewed, dictated and finalized at location A. LY SERVICES MANAGER
[2022-04-23 11:15] VITALS: BP 114/71; PULSE 72; RESP 23; TEMP 36.6; O2SAT 98
--- NOTE | 2022-04-23 11:38 | ECG_ITS ---
Measurements Intervals [place] Rate: 71 P: 57 [place]: 205 QRS: -4 QRSD: 97 T: 23 QT: 406 QTc: 442 Interpretive Statements SINUS RHYTHM MINIMAL ST DEPRESSION BORDERLINE ECG COMPARED TO ECG 01/26/2021 19:15:52 NO SIGNIFICANT CHANGE Electronically Signed On 04-23-2022 13:37:36 SANDBLAST CARVER by Rigo Montague M.D.
--- NOTE | 2022-04-23 11:41 | ED.GENADULT ---
HPI - General Adult General Chief complaint: Altered Mental Status Stated complaint: AMS Time Seen by Provider: 04/23/22 11:19 Source: patient, family and EMS History of Present Illness HPI narrative: 81 years old white male came to the ED by ambulance with his who is telling me that his facility reports that patient is slower to answer questions than normal. The also telling me that he have difficulty processing thinking, and could not get up today because of general weakness. Currently patient is awake, alert and oriented x4, denying any symptoms. Is telling me to ask his . He denies any fever, chills, nausea, vomiting, abdominal pain, chest pain, back pain, headache or focal neurodeficit. Related Data Home Medications Medication Instructions Recorded Confirmed vitamin B complex (B 1 tablet PO DAILY 11/17/20 01/24/22 Complex-Vitamin B12 tablet) glucosamine sulf dipot 1 cap PO BID 01/27/21 01/24/22 chlr,msm,chond 550 mg-C 30 mg-richard 1 mg capsule (Glucosamine Chondroitin) metoprolol tartrate 25 mg tablet 25 mg PO BID 07/27/21 01/24/22 calcium carbonate 600 mg calcium 600 mg PO DAILY 01/19/22 01/24/22 (1,500 mg) tablet ergocalciferol (vitamin D2) 1,250 1,250 mcg PO WEEKLY 01/19/22 01/24/22 mcg (50,000 unit) capsule (Vitamin D2) linagliptin 5 mg tablet 5 mg PO QAM 02/09/22 loperamide 2 mg capsule 2 mg PO Q6H PRN 02/09/22 Allergies Allergy/AdvReac Type Severity Reaction Status Date / Time No Known Allergies Allergy Verified 04/23/22 11:21 Review of Systems Review of Systems: All systems reviewed & are unremarkable except as noted in HPI and below PMFSH Past Medical History Medical History BPH (benign prostatic hyperplasia) 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 One in the 80's and the other shoulder in the 's Family History Family History Mother Heart disease Cerebrovascular accident Arthritis Father Diabetes mellitus Social History Social History Social History: German[place] c stef dnr Years smoked: 30 Smoking status: Former smoker Tobacco type: pipe and cigars Alcohol intake: never Alcohol use details: quit in 1989 Substance use: never Spiritual care concerns: No Exam Narrative: General appearance: Well-developed, well-nourished Skin: Normal color Head: Normocephalic, nontraumatic Eyes: Clear conjunctiva ENT: Oropharynx normal, ears normal, nose normal Neck: Supple, nontender Chest and respiratory: Airway patent, no respiratory distress, no accessory muscle use Heart: Regular rate/rhythm Abdomen: Soft, nontender, no organomegaly, quiet bowel sounds Vascular: Normal peripheral pulses, normal capillary refill. Musculoskeletal: Normal range of motion, nontender back Neurologic: Alert and oriented ?3, CORPORATE PLANNER is normal as tested, no gross motor deficit Course Course Emergency Course: Patient weakness is high likely secondary to urinary tract infection, IV Rocephin started, patient will be admitted Vital Signs Vital signs: Vital Signs Temperature 36.6 C 04/23/22 11:15 Pulse Rate 72 04/23/22 1
[2022-04-23 11:50] LABS: Basophils Percent Auto 0.2 % (0.2-1.2); Eosinophils Percent Auto 0.1 % (0-4.4); Hematocrit 29.1 % (42.0-52.0); Hemoglobin 9.6 g/dL (14.0-18.0); Immature Granulocyte Absolute 0.06 K/mm3 (0.00-0.031); Immature Granulocyte Percent A 0.4 % (0-0.5); Lymphocytes Absolute Auto 1.03 K/mm3 (0.9-3.2); Lymphocytes Percent Auto 6.7 % (18.3-44.2); Mean Corpuscular Hemoglobin 30.4 pg (26-34); Mean Corpuscular Volume 92.1 fl (80-100); Monocytes Absolute Auto 1.1 K/mm3 (0.1-0.6); Monocytes Percent Auto 7.2 % (2.6-8.5); Neutrophils Absolute Auto 13.2 K/mm3 (1.3-6.7); Neutrophils Percent Auto 85.4 % (45.5-73.1); Platelet Count Result 222 k/mm3 (150-375); Red Blood Count 3.16 M/mm3 (4.6-6.20); Red Cell Distribution Width 14.9 % (11.5-14.5); White Blood Count 15.5 K/mm3 (4.5-10.0)
[2022-04-23 12:00] LABS: Alanine Aminotransferase 20 U/L (6-50); Albumin Level 3.9 g/dL (3.5-5.1); Alkaline Phosphatase 54 U/L (38-126); Anion Gap 9 mmol/L (8-16); Aspartate Amino Transferase 27 U/L (17-59); Bilirubin,Total 0.8 mg/dL (0.2-1.3); Blood Urea Nitrogen 21 mg/dL (9-20); Calcium 8.4 mg/dL (8.4-10.2); Carbon Dioxide 20 mmol/L (22-30); Chloride 101 mmol/L (98-107); Estimated CRCL calculation 53 ml/min; Estimated Glomerular Filt Rate > 60; Glucose 282 mg/dL (65-110); Potassium 4.2 mmol/L (3.4-5.0); Sodium 130 mmol/L (137-145)
[2022-04-23 12:17] LABS: Appearance Urine Clear (Clear); Bilirubin Urine Negative (Negative); Blood Urine 1+ (Negative); Color Urine Yellow (Yellow); Glucose Urine UA 2+ mg/dL (Negative); Ketones Urine Trace mg/dL (Negative); Leukocyte Esterase Ur Trace LEU/UL (Negative); Nitrate Urine Positive (Negative); Protein Urine 1+ mg/dL (Negative); Specific Grav Ur 1.015 (1.001-1.035); Urobilinogen Urine 0.2 mg/dL (<2.0)
[2022-04-23 12:19] LABS: Mucus Urine Rare /lpf; Squamous Epithelial Cell Urine Occasional /hpf (Few); WBC Urine 51-75 /hpf
[2022-04-23 12:20] LABS: Add Urine Microscopic? YES
[2022-04-23 12:25] LABS: Influenza A QL RT-PCR Negative (Negative); Influenza B QL RT-PCR Negative (Negative); RSV RNA, RT-PCR Negative (Negative); SARS-CoV-2 RNA PCR Negative
[2022-04-23 12:36] LABS: INR 1.6; Prothrombin Time 18.3 Seconds (11.1-14.7)
[2022-04-23 12:37] LABS: Partial Thromboplastin Time 39.9 SECONDS (22.3-36.8)
[2022-04-23 13:37] VITALS: BP 130/59; PULSE 75; RESP 22; O2SAT 98
[2022-04-23 13:38] LABS: Glucose Point of Care 220 mg/dl (65-105)
--- NOTE | 2022-04-23 13:44 | PM.IMHP ---
H&P: HPI History of Present Illness Date/Time: 04/23/22 13:44 Chief Complaint: Altered mental status Narrative: This is a 81-year-old male patient who has a history of Parkinson's disease and is very hard of hearing even with his hearing aids in. The is at the bedside answering questions for me. At the facility the patient was slow to answer questions. He was alert and answering questions he was just taking him longer to answer. The patient was also having difficulty processing information. Patient denied any fever chills or any nausea vomiting or diarrhea. His white count was noted to be 15.5. H&H is 9.6 and 29.1. Sodium is 130. His blood sugar was 220 and then 175. The patient was positive for UTI. Influenza A/B and RSV as well as COVID were negative. The patient is being admitted to inpatient status on the date of service of 04/23/2022. Review of Systems Review of Systems: See HPI All systems reviewed & are unremarkable except as noted in HPI and below Constitutional: Constitutional: Reports as per HPI and Reports no additional constitutional complaints Eyes: Eyes: Reports as per HPI and Reports no additional eye complaints ENT: Reports system reviewed and no additional complaints, except as documented and Reports Normal hearing present Cardiovascular: Cardiovascular: Reports no additional cardiovascular complaints Respiratory: Respiratory: Reports no additional respiratory complaints and Reports no additional respiratory complaints Gastrointestinal: Gastrointestinal: Reports as per HPI and Reports no additional gastrointestinal complaints Musculoskeletal: Musculoskeletal: Reports no additional musculoskeletal complaints Integumentary/Breasts: Skin/Breast: Reports system reviewed and no additional complaints, except as docu and Reports as per HPI Neurologic: Reports system reviewed and no additional complaints, except as documented, Reports as per HPI and Reports Normal hearing present Psychiatric: Psychiatric: Reports no additional psychiatric complaints and Reports as per HPI Endocrine: Endocrine: Reports no additional endocrine complaints Hematologic/Lymphatic: Hematologic/Lymphatic: Reports no additional hematologic/lymphatic complaints Allergic/Immunologic: Allergic/Immunologic: Reports no additional allergic/immunologic complaints [facility] Past Medical History Medical History BPH (benign prostatic hyperplasia) 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 One in the 80's and the other shoulder in the 's Family History Family History Mother Heart disease Cerebrovascular accident Arthritis Father Diabetes mellitus Social History Social History (Updated 04/23/22 @ 18:34 by Alanna Jacobs NP) Social History: The patient resides at [facility]. His is the durable power trial attorney for healthcare. They have 4 children. 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 He denies any alcohol drugs or marijuana. Code status Dnr Years smoked: 30 Smoking status: Former smoker Tobacco type: cigarettes Alcohol intake: never Alcohol use details: quit in 1989 Substance use: never Substance use type: does not use Spiritual care concerns: No Meds Home Medications and Allergies Home Medications Medication Instructions Recorded Confirmed Type vitamin B complex (B 1 tablet PO DAILY 11/17/20 04/23/22 History Complex-Vitamin B12 tablet)
[2022-04-23] MEDS: INSULIN HUMAN REGULAR (*BKC) 100 UNITS/ML SUB-Q (13:53)
[2022-04-23 14:41] VITALS: BP 127/51; PULSE 73; RESP 22; O2SAT 96
[2022-04-23 16:00] VITALS: BP 115/52; PULSE 71; RESP 20; TEMP 36.6; O2SAT 95
[2022-04-23 17:15] LABS: Glucose Point of Care 175 mg/dl (65-105)
[2022-04-23] MEDS: SODIUM CHLORIDE 0.9% IV 1,000 ML 125 ML IV CONT (17:31)
[2022-04-23] MEDS: CARBIDOPA/LEVODOPA 25/100 MG TABLET 1 TABLET PO ×2 (17:38→20:33)
--- NOTE | 2022-04-23 19:32 | PC.NURSE ---
Contacted Alanna Jacobs N.P. and let know that patient had recent bullseye appear on [employer], at 19:33 on 04/23/2022.
[2022-04-23 20:15] LABS: Glucose Point of Care 146 mg/dl (65-105)
[2022-04-23] MEDS: RIVASTIGMINE TARTRATE 1.5 MG CAPSULE 3 MG PO (20:32)
[2022-04-23] MEDS: RIVAROXABAN 20 MG TABLET PO (20:33)
[2022-04-23 22:00] VITALS: BP 112/23; PULSE 70; RESP 1; TEMP 36.8; O2SAT 96
[2022-04-24] VITALS (7 sets, daily range): BP systolic 108–123; BP diastolic 48–62; PULSE 59–67; RESP 13–26; TEMP 36.2–37.2; O2SAT 91–97; BMI 30.4
[2022-04-24] MEDS: SODIUM CHLORIDE 0.9% IV 1,000 ML 125 ML IV CONT (01:20)
[2022-04-24 03:02] LABS: Immature Reticulocyte Fraction 17.5 % (3.0-15.9); Reticulocyte Hemoglobin Conten 32.2 pg (28.2-35.7); Reticulocyte Percent 1.54 % (0.7-4.3); Reticulocytes Absolute 0.05 B/L (32.2-175.7)
[2022-04-24 03:13] LABS: Lactate Dehydrogenase 154 U/L (120-246)
[2022-04-24 03:15] LABS: Bilirubin,Total 0.9 mg/dL (0.2-1.3)
[2022-04-24 03:16] LABS: Lactic Acid Reflex 1.1 mmol/L (0.7-2.0)
[2022-04-24 03:21] LABS: Transferrin 256 mg/dL (206-381)
[2022-04-24 03:22] LABS: Alanine Aminotransferase 7 U/L (6-50); Albumin Level 3.5 g/dL (3.5-5.1); Alkaline Phosphatase 50 U/L (38-126); Anion Gap 9 mmol/L (8-16); Aspartate Amino Transferase 19 U/L (17-59); Bilirubin,Total 0.9 mg/dL (0.2-1.3); Blood Urea Nitrogen 15 mg/dL (9-20); Calcium 8.1 mg/dL (8.4-10.2); Carbon Dioxide 22 mmol/L (22-30); Chloride 105 mmol/L (98-107); Estimated CRCL calculation 53 ml/min; Estimated Glomerular Filt Rate > 60; Glucose 161 mg/dL (65-110); Magnesium 1.2 mg/dL (1.6-2.3); Potassium 3.7 mmol/L (3.4-5.0); Sodium 136 mmol/L (137-145)
[2022-04-24 03:24] LABS: Iron 13 ug/dL (49-181)
[2022-04-24 03:25] LABS: Hemoglobin A1C 6.8 % (<5.7)
[2022-04-24 03:33] LABS: Percent Iron Saturation 4 % (20-50)
[2022-04-24 03:56] LABS: Thyroid Stimulating Hormone Reflex 0.774 uIU/mL (0.465-4.68)
[2022-04-24 04:21] LABS: Folic Acid 8.4 ng/mL (2.76->20)
[2022-04-24 04:28] LABS: Sodium Urine Random 24 meq/L
[2022-04-24 07:28] LABS: Basophils Absolute Auto 0.1 K/mm3 (0.0-0.1); Basophils Percent Auto 0.3 % (0.2-1.2); Eosinophils Percent Auto 0.2 % (0-4.4); Hematocrit 27.5 % (42.0-52.0); Hemoglobin 9.1 g/dL (14.0-18.0); Immature Granulocyte Absolute 0.37 K/mm3 (0.00-0.031); Lymphocytes Absolute Auto 1.78 K/mm3 (0.9-3.2); Lymphocytes Percent Auto 9.8 % (18.3-44.2); Mean Corpuscular HGB Conc 33.1 g/dl (32-36); Mean Corpuscular Volume 90.8 fl (80-100); Mean Platelet Volume 10.8 fl (7.4-10.4); Monocytes Absolute Auto 1.3 K/mm3 (0.1-0.6); Neutrophils Absolute Auto 14.7 K/mm3 (1.3-6.7); Neutrophils Percent Auto 80.7 % (45.5-73.1); Platelet Count Result 210 k/mm3 (150-375); Red Blood Count 3.03 M/mm3 (4.6-6.20); Red Cell Distribution Width 15.2 % (11.5-14.5); White Blood Count 18.2 K/mm3 (4.5-10.0)
[2022-04-24 08:05] LABS: Glucose Point of Care 159 mg/dl (65-105)
[2022-04-24] MEDS: RIVASTIGMINE TARTRATE 1.5 MG CAPSULE 3 MG PO ×2 (09:06→16:27)
[2022-04-24] MEDS: PRAVASTATIN SODIUM 20 MG TABLET PO (09:06)
[2022-04-24] MEDS: LOSARTAN POTASSIUM 100 MG TABLET PO (09:06)
[2022-04-24] MEDS: PANTOPRAZOLE 40 MG TABLET PO (09:06)
[2022-04-24] MEDS: FUROSEMIDE 40 MG TABLET PO (09:06)
[2022-04-24] MEDS: TAMSULOSIN HCL 0.4 MG CAPSULE PO (09:06)
[2022-04-24] MEDS: METOPROLOL TARTRATE 25 MG TABLET PO ×2 (09:06→16:27)
[2022-04-24] MEDS: CARBIDOPA/LEVODOPA 25/100 MG TABLET 1 TABLET PO ×4 (09:06→22:06)
[2022-04-24] MEDS: VITAMIN B COMPLEX CAPSULE 1 CAP PO (09:06)
--- NOTE | 2022-04-24 09:14 | WPDNEURCNPN ---
Assessment and Plan Assessment and plan (1) Encephalopathy: Code(s): G93.40 - Encephalopathy, unspecified Status: Acute (2) Urinary tract infection: Code(s): N39.0 - Urinary tract infection, site not specified Status: Acute (3) Parkinson disease: Code(s): G20 - Parkinson's disease Status: Acute Plan Duran Jansen is a 81 year old male with a history of diabetes, HTN, Parkinson's disease with associated dementia who presented from nursing facility due to being slower to respond and generalized weakness, likely secondary to underlying UTI, although weakness is mostly involving the lower extremities on exam. Mental status appears close to baseline. - Continue Sinemet 25-100mg QID and Rivastigmine 3mg BID - Obtain MRI brain w/o contrast Consult date: 04/24/22 Time Seen: 09:15 Reason for consult: Parkinson's Disease HPI: Duran Jansen is a 81 year old male with a history of diabetes, HTN, Parkinson's disease with associated dementia who presented from nursing facility due to being slower to respond. Per , on 04/23, patient was completely oriented, but just taking more time to answer questions and processing information. She also describes generalized weakness. He was brought to [place] ED where he was AOx4 on arrival. CT head showed no evidence of acute process. UA was concerning for UTI so he was started on Rocephin and admitted. He is seen [place] [facility] for his Parkinson's disease. He takes Sinemet 25-100mg QID and Rivastigmine 3mg BID. At the last visit in January 2022, his Rivastigmine dose was increased due to concerns that it was making a difference in his memory. Review of Systems Constitutional: Constitutional: Reports no additional constitutional complaints Eyes: Eyes: Reports no additional eye complaints ENT: Comments: chronic hearing loss Cardiovascular: Cardiovascular: Reports no additional cardiovascular complaints Respiratory: Respiratory: Reports dyspnea Gastrointestinal: Gastrointestinal: Reports no additional gastrointestinal complaints Genitourinary: Genitourinary: Reports no additional male genitourinary complaints Musculoskeletal: Musculoskeletal: Reports no additional musculoskeletal complaints Integumentary/Breasts: Skin/Breast: Reports system reviewed and no additional complaints, except as docu Neurologic: Reports as per HPI Psychiatric: Psychiatric: Reports behavioral changes and Reports confusion PMFSH Past Medical History Medical History BPH (benign prostatic hyperplasia) 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 One in the 's and the other shoulder in the 's Family History Family History Mother Heart disease Cerebrovascular accident Arthritis Father Diabetes mellitus Social History Social History Social History: The patient resides at [facility]. His is the durable power assistant district attorney for healthcare. They have 4 children. 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 He denies any alcohol drugs or marijuana. Code status Dnr Years smoked: 30 Smoking status: Former smoker Tobacco type: cigarettes Alcohol intake: never Alcohol use details: quit in 1989 Substance use: never Substance use type: does not use Spiritual care concerns: No Meds Home Medications and Allergies Home Medications Medication Instructi
[2022-04-24] MEDS: SODIUM CHLORIDE 0.9% IV 1,000 ML 75 ML IV CONT (10:06)
--- NOTE | 2022-04-24 12:23 | P.CDI_ITS ---
CDI Query Clarification Request After being able to see the patient for the first time, appears to be chronic diastolic heart failure not in exacerbation <GUZMAN Blood - Last Filed: 04/24/22 14:50> Clarified Diagnosis Clarified Diagnosis: Patient with documented history of CHF. Patient continues on Lasix, Losartan, and Metoprolol. CHF noted under assessment and plan. Patient with noted edema. Please specify type and acuity of heart failure if known. * Acute * Chronic * Acute on Chronic * Unknown * Systolic * Diastolic * Combined Systolic and Diastolic * Unknown <Key Dailey RN - Last Filed: 04/24/22 12:28>
[2022-04-24 12:31] LABS: Glucose Point of Care 211 mg/dl (65-105)
[2022-04-24] MEDS: INSULIN ASPART (*BKC) 100 UNITS/ML SUB-Q (12:43)
--- NOTE | 2022-04-24 13:15 | PM.IMPN ---
Progress Note: A&P Assessment and Plan (1) Urinary tract infection: Code(s): N39.0 - Urinary tract infection, site not specified Status: Acute Assessment and Plan: UA appears infectious with positive nitrates, trace leukocyte esterase, white blood cell 50 to 75 Urine cultures are pending Adjust antibiotics urine cultures WBCs increasing currently 18.2 Continue ceftriaxone for now Trended urine output (2) Parkinson disease: Code(s): G20 - Parkinson's disease Status: Acute Assessment and Plan: continue with carbidopa levodopa. Weakness noted, probably from infections consult Dr. Benavides MRI completed with no acute findings (3) Hyperlipidemia: Code(s): E78.5 - Hyperlipidemia, unspecified Status: Acute Assessment and Plan: Continue home pravastatin Stable at this time (4) HTN (hypertension): Code(s): I10 - Essential (primary) hypertension Status: Acute Assessment and Plan: Current BP 118/61 Continue metoprolol and Cozaar Trend blood pressure Adjust therapy as indicated (5) Diabetes mellitus, insulin dependent (IDDM), controlled: Status: Acute Assessment and Plan: Accu-Cheks AC and HS sliding scale insulin hypoglycemic protocol metformin at home and is on hold at this time. A1c 6.8 Continue to trend glucose Adjust therapy as indicated (6) CHF (congestive heart failure): Code(s): I50.9 - Heart failure, unspecified Status: Acute Assessment and Plan: Echo from March 11 showed an EF of 57% with a diastolic dysfunction Appears to be a chronic diastolic heart failure without exacerbation Continue home Lasix, losartan and metoprolol Daily weights Trend urine output (7) Acute hyponatremia: Code(s): E87.1 - Hypo-osmolality and hyponatremia Status: Acute Assessment and Plan: Sodium at time of admission was 130 Current sodium 136 Fluid stopped at this time Stable Continue trend (8) Anemia: Code(s): D64.9 - Anemia, unspecified Status: Acute Assessment and Plan: Hemoglobin/hematocrit 9.1/27.2 Anemia labs show iron 13, % saturation 4, transferrin 256, ferritin 25.10, B12 357, folate 8.4 Initiate ferrous sulfate 325 mg p.o. b.i.d. Trend H&H Transfuse if indicated Stable at this time (9) Leukocytosis: Code(s): D72.829 - Elevated white blood cell count, unspecified Status: Acute Assessment and Plan: WBC elevated at 18.2 today, trending up Continue ceftriaxone Chest xray pending read KUB ordered lactic ordered Trend labs Time Spent With Patient Time with patient: Greater than 35 minutes Subjective Date/time seen: 04/24/22 13:00 Interval history: 04/24/22 1300 Patient seemed to be in an ok mood. His was present, and stated that the patient was doing ok. She stted that he normally feeds himself, but today he was unable to. He seemed to be stong equally in both arms. He did state that he had a hard time breathing at one point. He also stated that he was having some chills. He does walk very short distances [facility]. He does not remember when his last BM was. He did state that he was not having any problems with urinating including urgency, frequency, pain, or burning. However, his stated that he is mainly incontinent. 04/23/22? 13:44 This is a 81-year-old male patient who has a history of Parkinson's disease and is very hard of hearing even with his hearing aids in.? The is at the bedside answering questions for me.? At the facility the patient was slow to answer questions.? He was alert and answering questions he was just taking him longer to answer.? The patient was also having difficulty processing information.? Patient denied any fe
--- NOTE | 2022-04-24 13:15 | P.PNIM_ITS ---
Progress Note: A&P Assessment and Plan (1) Urinary tract infection: Code(s): N39.0 - Urinary tract infection, site not specified Status: Acute Assessment and Plan: * UA appears infectious with positive nitrates, trace leukocyte esterase, white blood cell 50 to 75 * Urine cultures are pending * Adjust antibiotics urine cultures * WBCs increasing currently 18.2 * Continue ceftriaxone for now * Trended urine output (2) Parkinson disease: Code(s): G20 - Parkinson's disease Status: Acute Assessment and Plan: * continue with carbidopa levodopa. * Weakness noted, probably from infections * consult Dr. Benavides * MRI completed with no acute findings (3) Hyperlipidemia: Code(s): E78.5 - Hyperlipidemia, unspecified Status: Acute Assessment and Plan: * Continue home pravastatin * Stable at this time (4) HTN (hypertension): Code(s): I10 - Essential (primary) hypertension Status: Acute Assessment and Plan: * Current BP 118/61 * Continue metoprolol and Cozaar * Trend blood pressure * Adjust therapy as indicated (5) Diabetes mellitus, insulin dependent (IDDM), controlled: Status: Acute Assessment and Plan: * Accu-Cheks AC and HS * sliding scale insulin * hypoglycemic protocol * metformin at home and is on hold at this time. * A1c 6.8 * Continue to trend glucose * Adjust therapy as indicated (6) CHF (congestive heart failure): Code(s): I50.9 - Heart failure, unspecified Status: Acute Assessment and Plan: * Echo from March 11 showed an EF of 57% with a diastolic dysfunction * Appears to be a chronic diastolic heart failure without exacerbation * Continue home Lasix, losartan and metoprolol * Daily weights * Trend urine output (7) Acute hyponatremia: Code(s): E87.1 - Hypo-osmolality and hyponatremia Status: Acute Assessment and Plan: * Sodium at time of admission was 130 * Current sodium 136 * Fluid stopped at this time * Stable * Continue trend (8) Anemia: Code(s): D64.9 - Anemia, unspecified Status: Acute Assessment and Plan: * Hemoglobin/hematocrit 9.1/27.2 * Anemia labs show iron 13, % saturation 4, transferrin 256, ferritin 25.10, B12 357, folate 8.4 * Initiate ferrous sulfate 325 mg p.o. b.i.d. * Trend H&H * Transfuse if indicated * Stable at this time (9) Leukocytosis: Code(s): D72.829 - Elevated white blood cell count, unspecified Status: Acute Assessment and Plan: * WBC elevated at 18.2 today, trending up * Continue ceftriaxone * Chest xray pending read * KUB ordered * lactic ordered * Trend labs Time Spent With Patient Time with patient: Greater than 35 minutes Subjective Date/time seen: 04/24/22 13:00 Interval history: 04/24/22 1300 Patient seemed to be in an ok mood. His was present, and stated that the patient was doing ok. She stted that he normally feeds himself, but today he was unable to. He seemed to be stong equally in both arms. He did state that he had a hard time breathing at one point. He also stated that he was having some c
--- NOTE | 2022-04-24 14:27 | PM.IMCN ---
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 One in the 's and the other shoulder in the s Family History Family History Mother Heart disease Cerebrovascular accident Arthritis Father Diabetes mellitus Social History Social History Social History: The patient resides at [facility] and [facility]. His is the durable power attorney at law for healthcare. They have 4 children. 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 He denies any alcohol drugs or marijuana. Code status Dnr Years smoked: 30 Smoking status: Former smoker Tobacco type: cigarettes Alcohol intake: never Alcohol use details: quit in 1989 Substance use: never Substance use type: does not use Spiritual care concerns: No Meds Home Medications and Allergies Home Medications Medication Instructions Recorded Confirmed Type vitamin B complex (B 1 tablet PO DAILY 11/17/20 04/23/22 History Complex-Vitamin B12 tablet) glucosamine sulf dipot 1 cap PO BID 01/27/21 04/23/22 History chlr,msm,chond 550 mg-C 30 mg-richard 1 mg capsule (Glucosamine Chondroitin) insulin lispro 100 unit/mL 4 - 8 unit subcut TIDWM #10 mL 02/03/21 04/23/22 Rx subcutaneous solution (Humalog U-100 Insulin) lancets (OneTouch UltraSoft #200 ea 05/10/21 04/23/22 Rx Lancets) rivaroxaban 20 mg tablet (Xarelto) 20 mg PO DAILY #90 tabs 06/28/21 04/23/22 Rx furosemide 40 mg tablet (Lasix) 40 mg PO QAM #90 tabs 07/25/21 04/23/22 Rx omeprazole 20 mg capsule,delayed 20 mg PO .qod #45 caps 07/25/21 04/23/22 Rx release losartan 100 mg tablet 100 mg PO DAILY #90 tabs 07/27/21 04/23/22 Rx metformin 1,000 mg tablet 1,000 mg PO BID #180 tabs 07/27/21 04/23/22 Rx metoprolol tartrate 25 mg tablet 25 mg PO BID 07/27/21 04/23/22 History pravastatin 20 mg tablet 20 mg PO DAILY #90 tabs 07/27/21 04/23/22 Rx pen needle, diabetic 31 gauge x #100 ea 11/21/21 04/23/22 Rx 5/16 (Comfort EZ Pen [place]) tamsulosin 0.4 mg capsule 0.4 mg PO DAILY #90 caps 12/05/21 04/23/22 Rx calcium carbonate 600 mg calcium 600 mg PO DAILY 01/19/22 04/23/22 History (1,500 mg) tablet carbidopa 25 mg-levodopa 100 mg 1 tablet PO QID #360 tabs 01/19/22 04/23/22 Rx tablet ergocalciferol (vitamin D2) 1,250 1,250 mcg PO WEEKLY 01/19/22 04/23/22 History mcg (50,000 unit) capsule (Vitamin D2) rivastigmine tartrate 3 mg capsule 3 mg PO BID #60 caps 01/31/22 04/23/22 Rx linagliptin 5 mg tablet 5 mg PO QAM 02/09/22 04/23/22 History loperamide 2 mg capsule 2 mg PO Q8-10H PRN Diarrhea 02/09/22 04/23/22 History Allergies Allergy/AdvReac Type Severity Reaction Status Date / Time No Known Allergies Allergy Verified 04/23/22 11:21 Vital Signs Vital Signs - 24 hr 04/23/22 14:41 04/23/22 16:46 04/23/22 16:00 Temperature 97.8 F Pulse Rate 73 71 Respiratory Rate 22 H 20 Blood Pressure 127/51 L 115/52 L Pulse Oximetry 96 95 Oxygen Delivery Room Air 04/23/22 22:00 04/23/22 20:33 04/24/22 06:00 Temperature 98.2 F 97.8 F Pulse Rate 70 63 Respiratory Rate 1 L 19 Blood Pressure 112/23 L 108/62 Pulse Oxi
[2022-04-24] MEDS: MAGNESIUM SULF 4 GM/WATER100ML 4 GM/100 ML BAG IVPB (15:04)
[2022-04-24 15:35] LABS: Lactic Acid Reflex 1.7 mmol/L (0.7-2.0)
[2022-04-24] MEDS: BISACODYL 10 MG SUPPOSITORY RECTAL (16:07)
[2022-04-24] MEDS: FERROUS SULFATE 324 MG TABLET PO (16:26)
[2022-04-24] MEDS: RIVAROXABAN 20 MG TABLET PO (16:26)
[2022-04-24 17:23] LABS: Glucose Point of Care 200 mg/dl (65-105)
--- NOTE | 2022-04-24 18:05 | PC.NURSE ---
Luis Manuel Myers CLIENT SERVICE SUPERVISOR notified of pt c/o sob, 02 sat 96 on RA. Resp 26 per min. Orders recieved to give lasix
[2022-04-24] MEDS: FUROSEMIDE INJ 40 MG/4 ML VIAL IV PUSH (18:20)
[2022-04-24] MEDS: DOCUSATE SODIUM 100 MG CAPSULE PO (22:06)
[2022-04-25] VITALS (12 sets, daily range): BP systolic 113–133; BP diastolic 60–64; PULSE 67–96; RESP 14–28; TEMP 36.4–36.9; O2SAT 91–100
[2022-04-25 06:49] LABS: Basophils Percent Auto 0.2 % (0.2-1.2); Eosinophils Percent Auto 0.3 % (0-4.4); Hematocrit 27.9 % (42.0-52.0); Hemoglobin 9.2 g/dL (14.0-18.0); Immature Granulocyte Absolute 0.14 K/mm3 (0.00-0.031); Immature Granulocyte Percent A 1.1 % (0-0.5); Lymphocytes Absolute Auto 1.28 K/mm3 (0.9-3.2); Lymphocytes Percent Auto 9.6 % (18.3-44.2); Mean Corpuscular Hemoglobin 30.5 pg (26-34); Mean Corpuscular Volume 92.4 fl (80-100); Mean Platelet Volume 11.3 fl (7.4-10.4); Monocytes Absolute Auto 0.7 K/mm3 (0.1-0.6); Neutrophils Absolute Auto 11.1 K/mm3 (1.3-6.7); Neutrophils Percent Auto 83.8 % (45.5-73.1); Platelet Count Result 208 k/mm3 (150-375); Red Blood Count 3.02 M/mm3 (4.6-6.20); White Blood Count 13.3 K/mm3 (4.5-10.0)
[2022-04-25 07:02] LABS: NT Pro B Type Natriuretic Pept 2370 pg/mL (5-100)
[2022-04-25 07:03] LABS: Alanine Aminotransferase 7 U/L (6-50); Albumin Level 3.4 g/dL (3.5-5.1); Alkaline Phosphatase 55 U/L (38-126); Anion Gap 9 mmol/L (8-16); Aspartate Amino Transferase 19 U/L (17-59); Bilirubin,Total 0.8 mg/dL (0.2-1.3); Blood Urea Nitrogen 16 mg/dL (9-20); Calcium 7.6 mg/dL (8.4-10.2); Carbon Dioxide 21 mmol/L (22-30); Chloride 101 mmol/L (98-107); Estimated CRCL calculation 53 ml/min; Estimated Glomerular Filt Rate > 60; Glucose 192 mg/dL (65-110); Potassium 3.5 mmol/L (3.4-5.0); Sodium 131 mmol/L (137-145)
[2022-04-25 08:04] LABS: Glucose Point of Care 183 mg/dl (65-105)
--- NOTE | 2022-04-25 09:30 | P.PNIM_ITS ---
Progress Note: A&P Assessment and Plan (1) Urinary tract infection: Code(s): N39.0 - Urinary tract infection, site not specified Status: Acute Assessment and Plan: * UA appears infectious with positive nitrates, trace leukocyte esterase, white blood cell 50 to 75 * Urine cultures grew Ecoli * Adjust antibiotics sensitivities * WBCs decreasing currently 13.3 * Continue ceftriaxone, switch to cefdinir * Trended urine output (2) Parkinson disease: Code(s): G20 - Parkinson's disease Status: Acute Assessment and Plan: * continue with carbidopa levodopa. * Weakness noted, probably from infections * consult Dr. Benavides * MRI completed with no acute findings (3) Hyperlipidemia: Code(s): E78.5 - Hyperlipidemia, unspecified Status: Acute Assessment and Plan: * Continue home pravastatin * Stable at this time (4) HTN (hypertension): Code(s): I10 - Essential (primary) hypertension Status: Acute Assessment and Plan: * Current BP 118/61 * Continue metoprolol and Cozaar * Trend blood pressure * Adjust therapy as indicated (5) Diabetes mellitus, insulin dependent (IDDM), controlled: Status: Acute Assessment and Plan: * Current glucose 192 * Accu-Cheks AC and HS * sliding scale insulin * hypoglycemic protocol * metformin at home and is on hold at this time. * A1c 6.8 * Continue to trend glucose * Adjust therapy as indicated (6) CHF (congestive heart failure): Code(s): I50.9 - Heart failure, unspecified Status: Acute Assessment and Plan: * Echo from March 11 showed an EF of 57% with a diastolic dysfunction * New complaints of shortness of breath * BNP elevated at 2370 * Chest xray shows cardiomegaly with mild interstitial edema * PO lasix changed to IV lasix 40mg BID * acute on chronic diastolic heart failure with exacerbation * Fits criteria of exacerbation with edema on xray, SOB at rest, persistent cough * Continue home Lasix, losartan and metoprolol * Daily weights * Trend urine output (7) Acute hyponatremia: Code(s): E87.1 - Hypo-osmolality and hyponatremia Status: Acute Assessment and Plan: * Sodium at time of admission was 130 * Current sodium 131 * Fluid stopped at this time due to overload * Stable * Continue trend (8) Anemia: Code(s): D64.9 - Anemia, unspecified Status: Acute Assessment and Plan: * Hemoglobin/hematocrit 9.2/27.9 * Anemia labs show iron 13, % saturation 4, transferrin 256, ferritin 25.10, B12 357, folate 8.4 * Initiate ferrous sulfate 325 mg p.o. b.i.d. * Trend H&H * Transfuse if indicated * Stable at this time (9) Leukocytosis: Code(s): D72.829 - Elevated white blood cell count, unspecified Status: Acute Assessment and Plan: WBC elevated at 18.2 on 04/24/22 * Trending down currently 13.3 * Continue ceftriaxone * Chest xray mild interstitial edema * KUB no acute findings * lactic 1.7 * Trend labs Time Spent With Patient Time with patient: Greater than 35 minutes Subjective Date/time seen: 04/25/22929 Interval history: 04/25/22929 Patient was resting when I went
--- NOTE | 2022-04-25 09:30 | PM.IMPN ---
Progress Note: A&P Assessment and Plan (1) Urinary tract infection: Code(s): N39.0 - Urinary tract infection, site not specified Status: Acute Assessment and Plan: UA appears infectious with positive nitrates, trace leukocyte esterase, white blood cell 50 to 75 Urine cultures grew Ecoli Adjust antibiotics sensitivities WBCs decreasing currently 13.3 Continue ceftriaxone, switch to cefdinir Trended urine output (2) Parkinson disease: Code(s): G20 - Parkinson's disease Status: Acute Assessment and Plan: continue with carbidopa levodopa. Weakness noted, probably from infections consult Dr. Benavides MRI completed with no acute findings (3) Hyperlipidemia: Code(s): E78.5 - Hyperlipidemia, unspecified Status: Acute Assessment and Plan: Continue home pravastatin Stable at this time (4) HTN (hypertension): Code(s): I10 - Essential (primary) hypertension Status: Acute Assessment and Plan: Current BP 118/61 Continue metoprolol and Cozaar Trend blood pressure Adjust therapy as indicated (5) Diabetes mellitus, insulin dependent (IDDM), controlled: Status: Acute Assessment and Plan: Current glucose 192 Accu-Cheks AC and HS sliding scale insulin hypoglycemic protocol metformin at home and is on hold at this time. A1c 6.8 Continue to trend glucose Adjust therapy as indicated (6) CHF (congestive heart failure): Code(s): I50.9 - Heart failure, unspecified Status: Acute Assessment and Plan: Echo from March 11 showed an EF of 57% with a diastolic dysfunction New complaints of shortness of breath BNP elevated at 2370 Chest xray shows cardiomegaly with mild interstitial edema PO lasix changed to IV lasix 40mg BID acute on chronic diastolic heart failure with exacerbation Fits criteria of exacerbation with edema on xray, SOB at rest, persistent cough Continue home Lasix, losartan and metoprolol Daily weights Trend urine output (7) Acute hyponatremia: Code(s): E87.1 - Hypo-osmolality and hyponatremia Status: Acute Assessment and Plan: Sodium at time of admission was 130 Current sodium 131 Fluid stopped at this time due to overload Stable Continue trend (8) Anemia: Code(s): D64.9 - Anemia, unspecified Status: Acute Assessment and Plan: Hemoglobin/hematocrit 9.2/27.9 Anemia labs show iron 13, % saturation 4, transferrin 256, ferritin 25.10, B12 357, folate 8.4 Initiate ferrous sulfate 325 mg p.o. b.i.d. Trend H&H Transfuse if indicated Stable at this time (9) Leukocytosis: Code(s): D72.829 - Elevated white blood cell count, unspecified Status: Acute Assessment and Plan: WBC elevated at 18.2 on 04/24/22 Trending down currently 13.3 Continue ceftriaxone Chest xray mild interstitial edema KUB no acute findings lactic 1.7 Trend labs Time Spent With Patient Time with patient: Greater than 35 minutes Subjective Date/time seen: 04/25/22929 Interval history: 04/25/22929 Patient was resting when I went in to see him. Patient stated that he has been nauseous this morning. He also stated that he has been weak. His shortness of breath he stated was not any better however he is still breathing okay. He denies any chest pain, nausea, vomiting diarrhea or constipation. Patient does have a new excretory wheeze today. Urine culture did grow E coli. BNP was noted to be elevated 2370. Did start patient on Lasix b.i.d. IV. 04/24/22 1300 Patient seemed to be in an ok mood. His was present, and stated that the patient was doing ok. She stted that he normally feeds himself, but today he was unable to. He seemed to be stong equally in both arms. He did state that he had a hard time breathing at one
[2022-04-25] MEDS: DOCUSATE SODIUM 100 MG CAPSULE PO ×2 (10:12→22:10)
[2022-04-25] MEDS: METOPROLOL TARTRATE 25 MG TABLET PO ×2 (10:12→16:52)
[2022-04-25] MEDS: RIVASTIGMINE TARTRATE 1.5 MG CAPSULE 3 MG PO (10:12)
[2022-04-25] MEDS: TAMSULOSIN HCL 0.4 MG CAPSULE PO (10:13)
[2022-04-25] MEDS: FUROSEMIDE INJ 40 MG/4 ML VIAL IV PUSH ×2 (10:13→16:51)
[2022-04-25] MEDS: PRAVASTATIN SODIUM 20 MG TABLET PO (10:13)
[2022-04-25] MEDS: polyethylene glycoL 3350 17 GM POWD.PACK PO (10:13)
[2022-04-25] MEDS: CARBIDOPA/LEVODOPA 25/100 MG TABLET 1 TABLET PO ×4 (10:13→22:11)
[2022-04-25] MEDS: FERROUS SULFATE 324 MG TABLET PO ×2 (10:14→16:51)
[2022-04-25] MEDS: LOSARTAN POTASSIUM 100 MG TABLET PO (10:14)
[2022-04-25] MEDS: VITAMIN B COMPLEX CAPSULE 1 CAP PO (10:14)
[2022-04-25 11:41] LABS: Glucose Point of Care 222 mg/dl (65-105)
[2022-04-25] MEDS: INSULIN ASPART (*BKC) 100 UNITS/ML SUB-Q ×3 (12:14→20:46)
[2022-04-25] MEDS: ALBUTEROL SULFATE NEB 2.5 MG/3 ML INH 1.25 MG INHALATION ×3 (13:53→21:14)
[2022-04-25] MEDS: RIVAROXABAN 20 MG TABLET PO (16:52)
[2022-04-25 17:13] LABS: Glucose Point of Care 280 mg/dl (65-105)
[2022-04-25 20:07] LABS: Glucose Point of Care 343 mg/dl (65-105)
[2022-04-25] MEDS: CEFDINIR 300 MG CAPSULE PO (22:10)
[2022-04-26] VITALS (15 sets, daily range): BP systolic 118–124; BP diastolic 62–69; PULSE 59–78; RESP 16–28; TEMP 36.4–37.1; O2SAT 94–97
[2022-04-26] MEDS: ALBUTEROL SULFATE NEB 2.5 MG/3 ML INH 1.25 MG INHALATION ×4 (04:40→22:41)
[2022-04-26 07:40] LABS: Glucose Point of Care 205 mg/dl (65-105)
[2022-04-26 08:51] LABS: Basophils Percent Auto 0.3 % (0.2-1.2); Eosinophils Absolute Auto 0.2 K/mm3 (0-0.3); Eosinophils Percent Auto 2.8 % (0-4.4); Hematocrit 26.9 % (42.0-52.0); Immature Granulocyte Absolute 0.04 K/mm3 (0.00-0.031); Immature Granulocyte Percent A 0.5 % (0-0.5); Lymphocytes Absolute Auto 1.46 K/mm3 (0.9-3.2); Lymphocytes Percent Auto 19.5 % (18.3-44.2); Mean Corpuscular HGB Conc 33.5 g/dl (32-36); Mean Corpuscular Hemoglobin 29.7 pg (26-34); Mean Corpuscular Volume 88.8 fl (80-100); Mean Platelet Volume 11.4 fl (7.4-10.4); Monocytes Absolute Auto 0.7 K/mm3 (0.1-0.6); Monocytes Percent Auto 9.2 % (2.6-8.5); Neutrophils Absolute Auto 5.1 K/mm3 (1.3-6.7); Neutrophils Percent Auto 67.7 % (45.5-73.1); Platelet Count Result 219 k/mm3 (150-375); Red Blood Count 3.03 M/mm3 (4.6-6.20); Red Cell Distribution Width 14.9 % (11.5-14.5); White Blood Count 7.5 K/mm3 (4.5-10.0)
[2022-04-26 09:00] LABS: Alanine Aminotransferase 9 U/L (6-50); Albumin Level 3.3 g/dL (3.5-5.1); Alkaline Phosphatase 57 U/L (38-126); Anion Gap 9 mmol/L (8-16); Aspartate Amino Transferase 18 U/L (17-59); Bilirubin,Total 0.7 mg/dL (0.2-1.3); Blood Urea Nitrogen 19 mg/dL (9-20); Calcium 7.9 mg/dL (8.4-10.2); Carbon Dioxide 27 mmol/L (22-30); Chloride 97 mmol/L (98-107); Estimated CRCL calculation 53 ml/min; Estimated Glomerular Filt Rate > 60; Glucose 205 mg/dL (65-110); Magnesium 1.8 mg/dL (1.6-2.3); Potassium 3.4 mmol/L (3.4-5.0); Sodium 133 mmol/L (137-145)
[2022-04-26] MEDS: CARBIDOPA/LEVODOPA 25/100 MG TABLET 1 TABLET PO ×4 (09:18→20:03)
[2022-04-26] MEDS: PANTOPRAZOLE 40 MG TABLET PO (09:18)
[2022-04-26] MEDS: DOCUSATE SODIUM 100 MG CAPSULE PO (09:18)
[2022-04-26] MEDS: VITAMIN B COMPLEX CAPSULE 1 CAP PO (09:18)
[2022-04-26] MEDS: LOSARTAN POTASSIUM 100 MG TABLET PO (09:18)
[2022-04-26] MEDS: TAMSULOSIN HCL 0.4 MG CAPSULE PO (09:18)
[2022-04-26] MEDS: polyethylene glycoL 3350 17 GM POWD.PACK PO (09:18)
[2022-04-26] MEDS: RIVASTIGMINE TARTRATE 1.5 MG CAPSULE 3 MG PO ×2 (09:19→17:21)
[2022-04-26] MEDS: METOPROLOL TARTRATE 25 MG TABLET PO ×2 (09:19→17:21)
[2022-04-26] MEDS: PRAVASTATIN SODIUM 20 MG TABLET PO (09:19)
[2022-04-26] MEDS: FUROSEMIDE INJ 40 MG/4 ML VIAL IV PUSH (09:19)
[2022-04-26] MEDS: CEFDINIR 300 MG CAPSULE PO ×2 (09:19→20:03)
[2022-04-26] MEDS: INSULIN ASPART (*BKC) 100 UNITS/ML SUB-Q ×5 (09:19→23:03)
[2022-04-26 11:32] LABS: Glucose Point of Care 335 mg/dl (65-105)
[2022-04-26] MEDS: FERROUS SULFATE 324 MG TABLET PO ×2 (13:24→17:21)
--- NOTE | 2022-04-26 14:11 | P.PNIM_ITS ---
Progress Note: A&P Assessment and Plan (1) Urinary tract infection: Code(s): N39.0 - Urinary tract infection, site not specified Status: Acute Assessment and Plan: Urine culture with growth of >100k E coli * received IV ceftriaxone based on susceptibility report * transitioned to p.o. cefdinir on 04/25 * leukocytosis resolved. Patient remains afebrile (2) Encephalopathy: Code(s): G93.40 - Encephalopathy, unspecified Status: Acute Assessment and Plan: suspect toxic metabolic encephalopathy secondary to UTI * mental status is improving. * TSH, B12, folate within normal limits * head CT with no acute finding * brain MRI showed no acute intracranial process * monitor mental status closely (3) Generalized weakness: Code(s): R53.1 - Weakness Status: Acute Assessment and Plan: likely acute on chronic, worsened by acute UTI * appreciate PT/ OT eval (4) Diabetes mellitus, insulin dependent (IDDM), controlled: Status: Chronic Assessment and Plan: A1c is 6.8. blood sugars slightly elevated during admission * Accu-Cheks, moderate dose sliding scale insulin, hypoglycemic protocol * will add 4 units NovoLog scheduled with meals * home metformin on hold (5) Parkinson disease: Code(s): G20 - Parkinson's disease Status: Chronic Assessment and Plan: no acute issues * continue carbidopa/levodopa (6) HTN (hypertension): Code(s): I10 - Essential (primary) hypertension Status: Chronic Assessment and Plan: blood pressures remaining stable * continue metoprolol and losartan * monitor blood pressure trends (7) CHF (congestive heart failure): Code(s): I50.9 - Heart failure, unspecified Status: Chronic Assessment and Plan: echo from February 2022 showed EF of 57% with diastolic dysfunction * BNP mildly elevated at 2370 and patient complained of shortness of breath * CXR revealed cardiomegaly with mild interstitial edema * patient has been diuresed with IV Lasix and appears euvolemic on exam today * will transition back to home dose p.o. furosemide 40 mg daily * monitor volume status closely. measure intake and output and trend daily weights (8) Acute hyponatremia: Code(s): E87.1 - Hypo-osmolality and hyponatremia Status: Acute Assessment and Plan: improved. Sodium 133 today * continue to monitor sodium levels (9) Anemia: Code(s): D64.9 - Anemia, unspecified Status: Acute Assessment and Plan: H&H remaining stable * iron stores are low and patient has been started on p.o. ferrous sulfate 325 mg b.i.d. * monitor H&H Subjective Date/time seen: 04/26/22 14:11 Interval history: Date of service: 04/26/2022 Duran Jansen is an 81-year-old male with a history of BPH, hypertension, CHF, Parkinson's disease, atrial fibrillation, hypertension, and diabetes who is seen in follow-up for weakness and confusion. He states that he is all mixed up. His is present at the bedside today and she feels that he is more alert and notes that his weakness seems improved. She did have to feed him breakfast but he was able to move his arms more. The patient mostly complains of feeling cold. He tells me he headaches per breakfast but could not remember the rest of what he ate. his believes that his breathing is slightly rapid and labored, the patient has no complaints. He denies sh
--- NOTE | 2022-04-26 14:11 | PM.IMPN ---
Progress Note: A&P Assessment and Plan (1) Urinary tract infection: Code(s): N39.0 - Urinary tract infection, site not specified Status: Acute Assessment and Plan: Urine culture with growth of >100k E coli received IV ceftriaxone based on susceptibility report transitioned to p.o. cefdinir on 04/25 leukocytosis resolved. Patient remains afebrile (2) Encephalopathy: Code(s): G93.40 - Encephalopathy, unspecified Status: Acute Assessment and Plan: suspect toxic metabolic encephalopathy secondary to UTI mental status is improving. TSH, B12, folate within normal limits head CT with no acute finding brain MRI showed no acute intracranial process monitor mental status closely (3) Generalized weakness: Code(s): R53.1 - Weakness Status: Acute Assessment and Plan: likely acute on chronic, worsened by acute UTI appreciate PT/ OT eval (4) Diabetes mellitus, insulin dependent (IDDM), controlled: Status: Chronic Assessment and Plan: A1c is 6.8. blood sugars slightly elevated during admission Accu-Cheks, moderate dose sliding scale insulin, hypoglycemic protocol will add 4 units NovoLog scheduled with meals home metformin on hold (5) Parkinson disease: Code(s): G20 - Parkinson's disease Status: Chronic Assessment and Plan: no acute issues continue carbidopa/levodopa (6) HTN (hypertension): Code(s): I10 - Essential (primary) hypertension Status: Chronic Assessment and Plan: blood pressures remaining stable continue metoprolol and losartan monitor blood pressure trends (7) CHF (congestive heart failure): Code(s): I50.9 - Heart failure, unspecified Status: Chronic Assessment and Plan: echo from February 2022 showed EF of 57% with diastolic dysfunction BNP mildly elevated at 2370 and patient complained of shortness of breath CXR revealed cardiomegaly with mild interstitial edema patient has been diuresed with IV Lasix and appears euvolemic on exam today will transition back to home dose p.o. furosemide 40 mg daily monitor volume status closely. measure intake and output and trend daily weights (8) Acute hyponatremia: Code(s): E87.1 - Hypo-osmolality and hyponatremia Status: Acute Assessment and Plan: improved. Sodium 133 today continue to monitor sodium levels (9) Anemia: Code(s): D64.9 - Anemia, unspecified Status: Acute Assessment and Plan: H&H remaining stable iron stores are low and patient has been started on p.o. ferrous sulfate 325 mg b.i.d. monitor H&H Subjective Date/time seen: 04/26/22 14:11 Interval history: Date of service: 04/26/2022 Duran Jansen is an 81-year-old male with a history of BPH, hypertension, CHF, Parkinson's disease, atrial fibrillation, hypertension, and diabetes who is seen in follow-up for weakness and confusion. He states that he is all mixed up. His is present at the bedside today and she feels that he is more alert and notes that his weakness seems improved. She did have to feed him breakfast but he was able to move his arms more. The patient mostly complains of feeling cold. He tells me he headaches per breakfast but could not remember the rest of what he ate. his believes that his breathing is slightly rapid and labored, the patient has no complaints. He denies shortness of breath, cough, chest pain, dysphagia . He is incontinent of urine. Patient is unable to provide any additional history Review of Systems Review of Systems: All systems reviewed & are unremarkable except as noted in HPI and below Exam Narrative: General: well-nourished, chronically ill-appearing 81-year-old male, sitting up in bed, comfortable, NARD Neuro: awake, alert and oriented x43, speech clear, no focal neuro deficits noted, exhibit
[2022-04-26 16:18] LABS: Glucose Point of Care 307 mg/dl (65-105)
[2022-04-26] MEDS: RIVAROXABAN 20 MG TABLET PO (17:21)
--- NOTE | 2022-04-26 19:48 | PC.NURSE ---
called Alexandra ROMERO regarding pt bs [id number]
[2022-04-26 19:50] LABS: Haptoglobin 228 mg/dL (43-212)
[2022-04-26] MEDS: INSULIN ASPART (*BKC) 100 UNITS/ML 8 UNITS SUB-Q (20:57)
[2022-04-26 21:16] LABS: Glucose Point of Care 406 mg/dl (65-105)
[2022-04-26 22:55] LABS: Glucose Point of Care 240 mg/dl (65-105)
[2022-04-27] VITALS (11 sets, daily range): BP systolic 114–131; BP diastolic 50–76; PULSE 60–91; RESP 13–26; TEMP 35.7–36.2; O2SAT 94–96
[2022-04-27 00:45] LABS: Alpha 1 Globulin 0.3 g/dL (0.2-0.3); Alpha 2 Globulin 0.9 g/dL (0.5-0.9); Beta 1 Globulin 0.5 g/dL (0.4-0.6); Gamma Globulin 1.3 g/dL (0.8-1.7); Protein, Total 6.5 g/dL (6.1-8.1)
[2022-04-27 04:46] LABS: Glucose Point of Care 171 mg/dl (65-105)
[2022-04-27 07:10] LABS: Hematocrit 27.9 % (42.0-52.0); Hemoglobin 9.2 g/dL (14.0-18.0); Mean Corpuscular Hemoglobin 29.4 pg (26-34); Mean Corpuscular Volume 89.1 fl (80-100); Mean Platelet Volume 11.1 fl (7.4-10.4); Platelet Count Result 237 k/mm3 (150-375); Red Blood Count 3.13 M/mm3 (4.6-6.20); Red Cell Distribution Width 14.8 % (11.5-14.5)
[2022-04-27 07:30] LABS: Anion Gap 7 mmol/L (8-16); Blood Urea Nitrogen 22 mg/dL (9-20); Calcium 8.3 mg/dL (8.4-10.2); Carbon Dioxide 27 mmol/L (22-30); Chloride 99 mmol/L (98-107); Estimated CRCL calculation 47 ml/min; Estimated Glomerular Filt Rate > 60; Glucose 198 mg/dL (65-110); Potassium 3.5 mmol/L (3.4-5.0); Sodium 133 mmol/L (137-145)
[2022-04-27 07:43] LABS: Glucose Point of Care 231 mg/dl (65-105)
[2022-04-27] MEDS: polyethylene glycoL 3350 17 GM POWD.PACK PO (08:43)
[2022-04-27] MEDS: RIVASTIGMINE TARTRATE 1.5 MG CAPSULE 3 MG PO ×2 (08:44→16:43)
[2022-04-27] MEDS: PRAVASTATIN SODIUM 20 MG TABLET PO (08:45)
[2022-04-27] MEDS: CEFDINIR 300 MG CAPSULE PO ×2 (08:45→20:37)
[2022-04-27] MEDS: LOSARTAN POTASSIUM 100 MG TABLET PO (08:45)
[2022-04-27] MEDS: FUROSEMIDE 40 MG TABLET PO (08:45)
[2022-04-27] MEDS: CARBIDOPA/LEVODOPA 25/100 MG TABLET 1 TABLET PO ×4 (08:45→20:37)
[2022-04-27] MEDS: METOPROLOL TARTRATE 25 MG TABLET PO ×2 (08:45→16:42)
[2022-04-27] MEDS: DOCUSATE SODIUM 100 MG CAPSULE PO ×2 (08:45→20:37)
[2022-04-27] MEDS: VITAMIN B COMPLEX CAPSULE 1 CAP PO (08:45)
[2022-04-27] MEDS: TAMSULOSIN HCL 0.4 MG CAPSULE PO (08:46)
[2022-04-27] MEDS: INSULIN ASPART (*BKC) 100 UNITS/ML SUB-Q ×3 (08:48→12:16)
[2022-04-27] MEDS: ALBUTEROL SULFATE NEB 2.5 MG/3 ML INH 1.25 MG INHALATION ×3 (11:04→20:18)
[2022-04-27 11:46] LABS: Glucose Point of Care > 500 mg/dl (65-105)
[2022-04-27 11:54] LABS: Glucose Point of Care > 500 mg/dl (65-105)
[2022-04-27] MEDS: FERROUS SULFATE 324 MG TABLET PO ×2 (12:15→16:42)
--- NOTE | 2022-04-27 13:13 | PC.NURSE ---
Mary was called regarding patients BG above 500. New orders were entered, will be recheck at 130pm
[2022-04-27] MEDS: ACETAMINOPHEN 325 MG TABLET 650 MG PO (14:25)
--- NOTE | 2022-04-27 14:40 | PC.NURSE ---
BG over 500, new order from [place] to give 14units novolog and recheck in 1hr.
[2022-04-27 14:43] LABS: Glucose Point of Care > 500 mg/dl (65-105)
[2022-04-27] MEDS: INSULIN ASPART (*BKC) 100 UNITS/ML 14 UNITS SUB-Q (14:46)
--- NOTE | 2022-04-27 15:59 | PCSTNOTE ---
Please refer to the Bedside Swallow Evaluation in the EMR. Please note, silent aspiration cannot be ruled out at bedside.
--- NOTE | 2022-04-27 16:02 | P.PNIM_ITS ---
Progress Note: A&P Assessment and Plan (1) Urinary tract infection: Code(s): N39.0 - Urinary tract infection, site not specified Status: Acute Assessment and Plan: Urine culture with growth of >100k E coli * received IV ceftriaxone based on susceptibility report * transitioned to p.o. cefdinir on 04/25 * leukocytosis resolved. Patient remains afebrile (2) Encephalopathy: Code(s): G93.40 - Encephalopathy, unspecified Status: Acute Assessment and Plan: suspect toxic metabolic encephalopathy secondary to UTI * mental status is improving. Patient is A&O x4 today * TSH, B12, folate within normal limits * head CT with no acute finding * brain MRI showed no acute intracranial process * monitor mental status closely (3) Generalized weakness: Code(s): R53.1 - Weakness Status: Acute Assessment and Plan: likely acute on chronic, worsened by acute UTI * appreciate PT/ OT eval (4) Diabetes mellitus with hyperglycemia: Code(s): E11.65 - Type 2 diabetes mellitus with hyperglycemia Status: Acute Assessment and Plan: A1c is 6.8 (however could be affected by anemia as H/H lower than baseline). blood sugars poorly controlled * Glucose >500 today which is likely exacerbated by dietary issue. Diabetic diet has been ordered. * BOHB level pending * Normal anion gap. No s/sx of DKA * Accu-Cheks, high dose sliding scale insulin, hypoglycemic protocol * Scheduled novolog 6 units with meals * Lantus 18 units qHS * home metformin on hold * home tradjenta nonformulary (5) Parkinson disease: Code(s): G20 - Parkinson's disease Status: Chronic Assessment and Plan: no acute issues * continue carbidopa/levodopa (6) HTN (hypertension): Code(s): I10 - Essential (primary) hypertension Status: Chronic Assessment and Plan: blood pressures remaining stable * continue metoprolol and losartan * monitor blood pressure trends (7) CHF (congestive heart failure): Code(s): I50.9 - Heart failure, unspecified Status: Chronic Assessment and Plan: echo from February 2022 showed EF of 57% with diastolic dysfunction * BNP mildly elevated at 2370 and patient complained of shortness of breath * CXR revealed cardiomegaly with mild interstitial edema * patient was diuresed with IV Lasix and appears euvolemic on exam * continue home dose p.o. furosemide 40 mg daily * monitor volume status closely. measure intake and output and trend daily weights (8) Acute hyponatremia: Code(s): E87.1 - Hypo-osmolality and hyponatremia Status: Acute Assessment and Plan: improved. Sodium 133 today * continue to monitor sodium levels (9) Anemia: Code(s): D64.9 - Anemia, unspecified Status: Acute Assessment and Plan: H&H remaining stable, however lower than baseline * iron stores are low and patient has been started on p.o. ferrous sulfate 325 mg b.i.d. * stool occult blood test ordered, awaiting collection * monitor H&H Subjective Date/time seen: 04/27/22 16:02 Interval history: Date of service: 04/27/2022 Duran Jansen is an 81-year-old male with a history of BPH, hypertension, CHF, Parkinson's disease, atrial fibrillation, hypertension, and diabetes who is seen in follow-up for UTI. He is feeling a bit better today. His notes that he was able to feed himself today which she t
--- NOTE | 2022-04-27 16:02 | PM.IMPN ---
Progress Note: A&P Assessment and Plan (1) Urinary tract infection: Code(s): N39.0 - Urinary tract infection, site not specified Status: Acute Assessment and Plan: Urine culture with growth of >100k E coli received IV ceftriaxone based on susceptibility report transitioned to p.o. cefdinir on 04/25 leukocytosis resolved. Patient remains afebrile (2) Encephalopathy: Code(s): G93.40 - Encephalopathy, unspecified Status: Acute Assessment and Plan: suspect toxic metabolic encephalopathy secondary to UTI mental status is improving. Patient is A&O x4 today TSH, B12, folate within normal limits head CT with no acute finding brain MRI showed no acute intracranial process monitor mental status closely (3) Generalized weakness: Code(s): R53.1 - Weakness Status: Acute Assessment and Plan: likely acute on chronic, worsened by acute UTI appreciate PT/ OT eval (4) Diabetes mellitus with hyperglycemia: Code(s): E11.65 - Type 2 diabetes mellitus with hyperglycemia Status: Acute Assessment and Plan: A1c is 6.8 (however could be affected by anemia as H/H lower than baseline). blood sugars poorly controlled Glucose >500 today which is likely exacerbated by dietary issue. Diabetic diet has been ordered. BOHB level pending Normal anion gap. No s/sx of DKA Accu-Cheks, high dose sliding scale insulin, hypoglycemic protocol Scheduled novolog 6 units with meals Lantus 18 units qHS home metformin on hold home tradjenta nonformulary (5) Parkinson disease: Code(s): G20 - Parkinson's disease Status: Chronic Assessment and Plan: no acute issues continue carbidopa/levodopa (6) HTN (hypertension): Code(s): I10 - Essential (primary) hypertension Status: Chronic Assessment and Plan: blood pressures remaining stable continue metoprolol and losartan monitor blood pressure trends (7) CHF (congestive heart failure): Code(s): I50.9 - Heart failure, unspecified Status: Chronic Assessment and Plan: echo from February 2022 showed EF of 57% with diastolic dysfunction BNP mildly elevated at 2370 and patient complained of shortness of breath CXR revealed cardiomegaly with mild interstitial edema patient was diuresed with IV Lasix and appears euvolemic on exam continue home dose p.o. furosemide 40 mg daily monitor volume status closely. measure intake and output and trend daily weights (8) Acute hyponatremia: Code(s): E87.1 - Hypo-osmolality and hyponatremia Status: Acute Assessment and Plan: improved. Sodium 133 today continue to monitor sodium levels (9) Anemia: Code(s): D64.9 - Anemia, unspecified Status: Acute Assessment and Plan: H&H remaining stable, however lower than baseline iron stores are low and patient has been started on p.o. ferrous sulfate 325 mg b.i.d. stool occult blood test ordered, awaiting collection monitor H&H Subjective Date/time seen: 04/27/22 16:02 Interval history: Date of service: 04/27/2022 Duran Jansen is an 81-year-old male with a history of BPH, hypertension, CHF, Parkinson's disease, atrial fibrillation, hypertension, and diabetes who is seen in follow-up for UTI. He is feeling a bit better today. His notes that he was able to feed himself today which she thought was an improvement. The patient feels that his weakness is improving. He has no other complaints. He does note an occasional cough. He denies shortness of breath or chest pain. Denies abdominal pain, nausea, vomiting, fever, or chills. Denies dysphagia. Review of Systems Review of Systems: All systems reviewed & are unremarkable except as noted in HPI and below Exam Narrative: General: well-nourished, chronically ill-appearing 81-year-old male, sitting up in bed,
[2022-04-27 16:07] LABS: Glucose Point of Care 492 mg/dl (65-105)
[2022-04-27 16:33] LABS: Anion Gap 12 mmol/L (8-16); Blood Urea Nitrogen 31 mg/dL (9-20); Calcium 8.5 mg/dL (8.4-10.2); Carbon Dioxide 23 mmol/L (22-30); Chloride 93 mmol/L (98-107); Estimated CRCL calculation 47 ml/min; Estimated Glomerular Filt Rate > 60; Glucose 501 mg/dL (65-110); Potassium 4.3 mmol/L (3.4-5.0); Sodium 128 mmol/L (137-145)
[2022-04-27] MEDS: INSULIN ASPART (*BKC) 100 UNITS/ML 6 UNITS SUB-Q ×2 (16:43→18:31)
[2022-04-27] MEDS: RIVAROXABAN 20 MG TABLET PO (16:43)
[2022-04-27 17:03] LABS: Glucose Point of Care 446 mg/dl (65-105)
[2022-04-27 17:37] LABS: Beta-Hydroxybutyrate/Acetoacetate 0.19 mmol/L (0.02-0.27)
--- NOTE | 2022-04-27 18:16 | PC.NURSE ---
Per Mary, put in order for 6units novolog 1x dose when patient begins eating. Check blood glucose in 2hrs, then call Kaylene with results.
[2022-04-27] MEDS: INSULIN GLARGINE (*BKC) 100 UNITS/ML 18 UNITS SUB-Q (20:37)
[2022-04-27 20:52] LABS: Glucose Point of Care 437 mg/dl (65-105)
[2022-04-28] VITALS (14 sets, daily range): BP systolic 102–119; BP diastolic 53–66; PULSE 59–94; RESP 14–20; TEMP 36.1–36.3; O2SAT 95–96
[2022-04-28 00:02] LABS: Glucose Point of Care 364 mg/dl (65-105)
[2022-04-28] MEDS: INSULIN ASPART (*BKC) 100 UNITS/ML SUB-Q ×4 (00:06→17:36)
[2022-04-28] MEDS: ALBUTEROL SULFATE NEB 2.5 MG/3 ML INH 1.25 MG INHALATION ×5 (00:27→16:26)
[2022-04-28 06:19] LABS: Glucose Point of Care 303 mg/dl (65-105)
[2022-04-28 07:14] LABS: Hematocrit 28.6 % (42.0-52.0); Hemoglobin 9.5 g/dL (14.0-18.0); Mean Corpuscular HGB Conc 33.2 g/dl (32-36); Mean Corpuscular Hemoglobin 30.5 pg (26-34); Platelet Count Result 261 k/mm3 (150-375); Red Blood Count 3.11 M/mm3 (4.6-6.20); Red Cell Distribution Width 14.4 % (11.5-14.5); White Blood Count 9.7 K/mm3 (4.5-10.0)
[2022-04-28 07:26] LABS: Anion Gap 8 mmol/L (8-16); Blood Urea Nitrogen 32 mg/dL (9-20); Calcium 8.6 mg/dL (8.4-10.2); Carbon Dioxide 27 mmol/L (22-30); Chloride 96 mmol/L (98-107); Estimated CRCL calculation 47 ml/min; Estimated Glomerular Filt Rate > 60; Glucose 319 mg/dL (65-110); Potassium 3.8 mmol/L (3.4-5.0); Sodium 131 mmol/L (137-145)
[2022-04-28] MEDS: VITAMIN B COMPLEX CAPSULE 1 CAP PO (08:13)
[2022-04-28] MEDS: polyethylene glycoL 3350 17 GM POWD.PACK PO (08:13)
[2022-04-28] MEDS: CARBIDOPA/LEVODOPA 25/100 MG TABLET 1 TABLET PO ×4 (08:13→20:52)
[2022-04-28] MEDS: METOPROLOL TARTRATE 25 MG TABLET PO ×2 (08:13→17:35)
[2022-04-28] MEDS: CEFDINIR 300 MG CAPSULE PO ×2 (08:13→20:52)
[2022-04-28] MEDS: LOSARTAN POTASSIUM 100 MG TABLET PO (08:13)
[2022-04-28] MEDS: RIVASTIGMINE TARTRATE 1.5 MG CAPSULE 3 MG PO ×2 (08:13→17:36)
[2022-04-28] MEDS: DOCUSATE SODIUM 100 MG CAPSULE PO ×2 (08:13→20:52)
[2022-04-28] MEDS: FUROSEMIDE 40 MG TABLET PO (08:13)
[2022-04-28] MEDS: PANTOPRAZOLE 40 MG TABLET PO (08:14)
[2022-04-28] MEDS: TAMSULOSIN HCL 0.4 MG CAPSULE PO (08:14)
[2022-04-28] MEDS: PRAVASTATIN SODIUM 20 MG TABLET PO (08:14)
[2022-04-28] MEDS: INSULIN ASPART (*BKC) 100 UNITS/ML 6 UNITS SUB-Q ×3 (08:15→17:36)
[2022-04-28 08:40] LABS: Glucose Point of Care 295 mg/dl (65-105)
[2022-04-28 11:56] LABS: Glucose Point of Care 418 mg/dl (65-105)
[2022-04-28] MEDS: FERROUS SULFATE 324 MG TABLET PO ×2 (12:50→17:36)
--- NOTE | 2022-04-28 13:44 | P.PNIM_ITS ---
Progress Note: A&P Assessment and Plan (1) Urinary tract infection: Code(s): N39.0 - Urinary tract infection, site not specified Status: Acute Assessment and Plan: Urine culture with growth of >100k E coli * received IV ceftriaxone based on susceptibility report * transitioned to p.o. cefdinir on 04/25. Day 6 today. Last dose 04/29/22 * leukocytosis resolved. Patient remains afebrile (2) Encephalopathy: Code(s): G93.40 - Encephalopathy, unspecified Status: Acute Assessment and Plan: suspect toxic metabolic encephalopathy secondary to UTI * mental status is improving. Patient is A&O x4 today but does exhibit some confusion * TSH, B12, folate within normal limits * head CT with no acute finding * brain MRI showed no acute intracranial process * monitor mental status closely (3) Generalized weakness: Code(s): R53.1 - Weakness Status: Acute Assessment and Plan: likely acute on chronic, worsened by acute UTI * appreciate PT/ OT eval * need to consider rehab following discharge (4) Diabetes mellitus with hyperglycemia: Code(s): E11.65 - Type 2 diabetes mellitus with hyperglycemia Status: Acute Assessment and Plan: A1c is 6.8 (however could be affected by anemia as H/H lower than baseline). blood sugars poorly controlled. >500 yesterday, today ranging 300-400 * Hyperglycemia possibly exacerbated by dietary issue. Patient has been restarted on diabetic diet * No signs/symptoms of DKA. Normal anion gap. Normal BOHB. * Will increase Lantus to 20 units q.h.s. * Scheduled NovoLog 6 units with meals in addition to high-dose sliding scale insulin * Home metformin is on hold and home Tradjenta is non formulary * Continue with Accu-Cheks ACHS and hypoglycemic protocol (5) Parkinson disease: Code(s): G20 - Parkinson's disease Status: Chronic Assessment and Plan: No acute issues * continue carbidopa/levodopa (6) HTN (hypertension): Code(s): I10 - Essential (primary) hypertension Status: Chronic Assessment and Plan: Blood pressures remaining stable * continue metoprolol and losartan * monitor blood pressure trends (7) CHF (congestive heart failure): Code(s): I50.9 - Heart failure, unspecified Status: Chronic Assessment and Plan: echo from February 2022 showed EF of 57% with diastolic dysfunction * BNP mildly elevated at 2370 and patient complained of shortness of breath * CXR revealed cardiomegaly with mild interstitial edema * patient was diuresed with IV Lasix and is euvolemic on exam * continue home dose p.o. furosemide 40 mg daily * monitor volume status closely. measure intake and output and trend daily weights (8) Acute hyponatremia: Code(s): E87.1 - Hypo-osmolality and hyponatremia Status: Acute Assessment and Plan: improved. Sodium 131 today * continue to monitor sodium levels (9) Anemia: Code(s): D64.9 - Anemia, unspecified Status: Acute Assessment and Plan: H&H remaining stable, however lower than baseline * iron stores are low and patient has been started on p.o. ferrous sulfate 325 mg b.i.d. * stool occult blood test ordered, awaiting collection * monitor H&H Subjective Date/time seen: 04/28/22 13:44 Interval history: Date of service: 04/28/2022 Duran Jansen is an 81-year-old male with a history of BPH, hypertension, C
--- NOTE | 2022-04-28 13:44 | PM.IMPN ---
Progress Note: A&P Assessment and Plan (1) Urinary tract infection: Code(s): N39.0 - Urinary tract infection, site not specified Status: Acute Assessment and Plan: Urine culture with growth of >100k E coli received IV ceftriaxone based on susceptibility report transitioned to p.o. cefdinir on 04/25. Day 6 today. Last dose 04/29/22 leukocytosis resolved. Patient remains afebrile (2) Encephalopathy: Code(s): G93.40 - Encephalopathy, unspecified Status: Acute Assessment and Plan: suspect toxic metabolic encephalopathy secondary to UTI mental status is improving. Patient is A&O x4 today but does exhibit some confusion TSH, B12, folate within normal limits head CT with no acute finding brain MRI showed no acute intracranial process monitor mental status closely (3) Generalized weakness: Code(s): R53.1 - Weakness Status: Acute Assessment and Plan: likely acute on chronic, worsened by acute UTI appreciate PT/ OT eval need to consider rehab following discharge (4) Diabetes mellitus with hyperglycemia: Code(s): E11.65 - Type 2 diabetes mellitus with hyperglycemia Status: Acute Assessment and Plan: A1c is 6.8 (however could be affected by anemia as H/H lower than baseline). blood sugars poorly controlled. >500 yesterday, today ranging 300-400 Hyperglycemia possibly exacerbated by dietary issue. Patient has been restarted on diabetic diet No signs/symptoms of DKA. Normal anion gap. Normal BOHB. Will increase Lantus to 20 units q.h.s. Scheduled NovoLog 6 units with meals in addition to high-dose sliding scale insulin Home metformin is on hold and home Tradjenta is non formulary Continue with Accu-Cheks ACHS and hypoglycemic protocol (5) Parkinson disease: Code(s): G20 - Parkinson's disease Status: Chronic Assessment and Plan: No acute issues continue carbidopa/levodopa (6) HTN (hypertension): Code(s): I10 - Essential (primary) hypertension Status: Chronic Assessment and Plan: Blood pressures remaining stable continue metoprolol and losartan monitor blood pressure trends (7) CHF (congestive heart failure): Code(s): I50.9 - Heart failure, unspecified Status: Chronic Assessment and Plan: echo from February 2022 showed EF of 57% with diastolic dysfunction BNP mildly elevated at 2370 and patient complained of shortness of breath CXR revealed cardiomegaly with mild interstitial edema patient was diuresed with IV Lasix and is euvolemic on exam continue home dose p.o. furosemide 40 mg daily monitor volume status closely. measure intake and output and trend daily weights (8) Acute hyponatremia: Code(s): E87.1 - Hypo-osmolality and hyponatremia Status: Acute Assessment and Plan: improved. Sodium 131 today continue to monitor sodium levels (9) Anemia: Code(s): D64.9 - Anemia, unspecified Status: Acute Assessment and Plan: H&H remaining stable, however lower than baseline iron stores are low and patient has been started on p.o. ferrous sulfate 325 mg b.i.d. stool occult blood test ordered, awaiting collection monitor H&H Subjective Date/time seen: 04/28/22 13:44 Interval history: Date of service: 04/28/2022 Duran Jansen is an 81-year-old male with a history of BPH, hypertension, CHF, Parkinson's disease, atrial fibrillation, hypertension, and diabetes who is seen in follow-up for UTI. His is present at the bedside today. Patient feels that he is doing well today, though states he was confused yesterday. He was concerned about changes to his diet and stated he did not like the salad he got on his tray. He was able to feed himself breakfast today and his states he did pretty well with this. He feels like his strength is improving. He denies abdominal miracle
[2022-04-28 14:12] LABS: Glucose Point of Care 423 mg/dl (65-105)
[2022-04-28] MEDS: INSULIN ASPART (*BKC) 100 UNITS/ML 10 UNITS SUB-Q (14:30)
[2022-04-28 16:36] LABS: Glucose Point of Care 384 mg/dl (65-105)
[2022-04-28] MEDS: RIVAROXABAN 20 MG TABLET PO (17:36)
[2022-04-28 19:57] LABS: Glucose Point of Care 320 mg/dl (65-105)
[2022-04-28] MEDS: INSULIN ASPART (*BKC) 100 UNITS/ML 8 UNITS SUB-Q (20:54)
[2022-04-28] MEDS: INSULIN GLARGINE (*BKC) 100 UNITS/ML 18 UNITS SUB-Q (20:54)
[2022-04-28 20:56] LABS: Soluble Transferrin Receptor 1.84 mg/L (0.76-1.76)
[2022-04-29] VITALS (10 sets, daily range): BP systolic 106–166; BP diastolic 52–74; PULSE 60–114; RESP 16–20; TEMP 36.1–36.4; O2SAT 94–99
[2022-04-29] MEDS: INSULIN ASPART (*BKC) 100 UNITS/ML SUB-Q ×4 (00:21→23:29)
[2022-04-29 00:44] LABS: Glucose Point of Care 260 mg/dl (65-105)
[2022-04-29 06:29] LABS: Glucose Point of Care 181 mg/dl (65-105)
[2022-04-29 08:38] LABS: Hematocrit 28.1 % (42.0-52.0); Hemoglobin 9.1 g/dL (14.0-18.0); Mean Corpuscular HGB Conc 32.4 g/dl (32-36); Mean Corpuscular Hemoglobin 29.7 pg (26-34); Mean Corpuscular Volume 91.8 fl (80-100); Mean Platelet Volume 11.1 fl (7.4-10.4); Platelet Count Result 268 k/mm3 (150-375); Red Blood Count 3.06 M/mm3 (4.6-6.20); Red Cell Distribution Width 14.8 % (11.5-14.5)
[2022-04-29] MEDS: ALBUTEROL SULFATE NEB 2.5 MG/3 ML INH 1.25 MG INHALATION ×2 (08:51→16:29)
[2022-04-29] MEDS: polyethylene glycoL 3350 17 GM POWD.PACK PO (08:52)
[2022-04-29] MEDS: VITAMIN B COMPLEX CAPSULE 1 CAP PO (08:52)
[2022-04-29] MEDS: TAMSULOSIN HCL 0.4 MG CAPSULE PO (08:52)
[2022-04-29] MEDS: LOSARTAN POTASSIUM 100 MG TABLET PO (08:52)
[2022-04-29] MEDS: PRAVASTATIN SODIUM 20 MG TABLET PO (08:53)
[2022-04-29] MEDS: CEFDINIR 300 MG CAPSULE PO ×2 (08:53→20:41)
[2022-04-29] MEDS: RIVASTIGMINE TARTRATE 1.5 MG CAPSULE 3 MG PO ×2 (08:53→17:15)
[2022-04-29] MEDS: FUROSEMIDE 40 MG TABLET PO (08:53)
[2022-04-29] MEDS: METOPROLOL TARTRATE 25 MG TABLET PO ×2 (08:53→17:15)
[2022-04-29] MEDS: CARBIDOPA/LEVODOPA 25/100 MG TABLET 1 TABLET PO ×4 (08:53→20:41)
[2022-04-29] MEDS: INSULIN ASPART (*BKC) 100 UNITS/ML 6 UNITS SUB-Q ×3 (08:53→17:15)
[2022-04-29] MEDS: DOCUSATE SODIUM 100 MG CAPSULE PO ×2 (08:53→20:41)
[2022-04-29 09:31] LABS: Anion Gap 6 mmol/L (8-16); Blood Urea Nitrogen 31 mg/dL (9-20); Calcium 8.7 mg/dL (8.4-10.2); Carbon Dioxide 29 mmol/L (22-30); Chloride 98 mmol/L (98-107); Estimated CRCL calculation 43 ml/min; Estimated Glomerular Filt Rate 58; Glucose 166 mg/dL (65-110); Potassium 3.3 mmol/L (3.4-5.0); Sodium 133 mmol/L (137-145)
[2022-04-29 11:56] LABS: Glucose Point of Care 237 mg/dl (65-105)
[2022-04-29] MEDS: FERROUS SULFATE 324 MG TABLET PO ×2 (12:11→17:15)
--- NOTE | 2022-04-29 14:36 | P.PNIM_ITS ---
Progress Note: A&P Assessment and Plan (1) Urinary tract infection: Code(s): N39.0 - Urinary tract infection, site not specified Status: Acute Assessment and Plan: Urine culture with growth of >100k E coli * received IV ceftriaxone based on susceptibility report * transitioned to p.o. cefdinir on 04/25. Day 7 today. Last dose this evening * leukocytosis resolved. Patient remains afebrile (2) Encephalopathy: Code(s): G93.40 - Encephalopathy, unspecified Status: Acute Assessment and Plan: suspect toxic metabolic encephalopathy secondary to UTI * mental status is improving. Patient is A&O x4 today but does exhibit some confusion * TSH, B12, folate within normal limits * head CT with no acute finding * brain MRI showed no acute intracranial process * monitor mental status closely (3) Generalized weakness: Code(s): R53.1 - Weakness Status: Acute Assessment and Plan: likely acute on chronic, worsened by acute UTI * appreciate PT/ OT eval * need to consider rehab following discharge (4) Diabetes mellitus with hyperglycemia: Code(s): E11.65 - Type 2 diabetes mellitus with hyperglycemia Status: Acute Assessment and Plan: A1c is 6.8 (however could be affected by anemia as H/H lower than baseline). blood sugars have been poorly controlled this admission ranging from 400-500 * Hyperglycemia possibly exacerbated by dietary issue. Patient has been restarted on diabetic diet and blood sugars are improved * No signs/symptoms of DKA. Normal anion gap. Normal BOHB. * continue Lantus 18 units q.h.s. * Scheduled NovoLog 6 units with meals in addition to high-dose sliding scale insulin * Home metformin is on hold and home Tradjenta is non formulary * Continue with Accu-Cheks ACHS and hypoglycemic protocol * Close monitoring of blood sugars (5) Parkinson disease: Code(s): G20 - Parkinson's disease Status: Chronic Assessment and Plan: No acute issues * continue carbidopa/levodopa (6) HTN (hypertension): Code(s): I10 - Essential (primary) hypertension Status: Chronic Assessment and Plan: Blood pressures remaining stable * continue metoprolol and losartan * monitor blood pressure trends (7) CHF (congestive heart failure): Code(s): I50.9 - Heart failure, unspecified Status: Chronic Assessment and Plan: echo from February 2022 showed EF of 57% with diastolic dysfunction * BNP mildly elevated at 2370 and patient complained of shortness of breath * CXR revealed cardiomegaly with mild interstitial edema * patient was diuresed with IV Lasix and is euvolemic on exam * continue home dose p.o. furosemide 40 mg daily * monitor volume status closely. measure intake and output and trend daily weights (8) Acute hyponatremia: Code(s): E87.1 - Hypo-osmolality and hyponatremia Status: Acute Assessment and Plan: improved. Sodium 133 today * continue to monitor sodium levels (9) Anemia: Code(s): D64.9 - Anemia, unspecified Status: Acute Assessment and Plan: H&H remaining stable, however lower than baseline * iron stores are low and patient has been started on p.o. ferrous sulfate 325 mg b.i.d. * stool occult blood test ordered, awaiting collection * monitor H&H Subjective Date/time seen: 04/29/22 14:36 Interval history: Date of service: 04/29/2022 Duran
--- NOTE | 2022-04-29 14:36 | PM.IMPN ---
Progress Note: A&P Assessment and Plan (1) Urinary tract infection: Code(s): N39.0 - Urinary tract infection, site not specified Status: Acute Assessment and Plan: Urine culture with growth of >100k E coli received IV ceftriaxone based on susceptibility report transitioned to p.o. cefdinir on 04/25. Day 7 today. Last dose this evening leukocytosis resolved. Patient remains afebrile (2) Encephalopathy: Code(s): G93.40 - Encephalopathy, unspecified Status: Acute Assessment and Plan: suspect toxic metabolic encephalopathy secondary to UTI mental status is improving. Patient is A&O x4 today but does exhibit some confusion TSH, B12, folate within normal limits head CT with no acute finding brain MRI showed no acute intracranial process monitor mental status closely (3) Generalized weakness: Code(s): R53.1 - Weakness Status: Acute Assessment and Plan: likely acute on chronic, worsened by acute UTI appreciate PT/ OT eval need to consider rehab following discharge (4) Diabetes mellitus with hyperglycemia: Code(s): E11.65 - Type 2 diabetes mellitus with hyperglycemia Status: Acute Assessment and Plan: A1c is 6.8 (however could be affected by anemia as H/H lower than baseline). blood sugars have been poorly controlled this admission ranging from 400-500 Hyperglycemia possibly exacerbated by dietary issue. Patient has been restarted on diabetic diet and blood sugars are improved No signs/symptoms of DKA. Normal anion gap. Normal BOHB. continue Lantus 18 units q.h.s. Scheduled NovoLog 6 units with meals in addition to high-dose sliding scale insulin Home metformin is on hold and home Tradjenta is non formulary Continue with Accu-Cheks ACHS and hypoglycemic protocol Close monitoring of blood sugars (5) Parkinson disease: Code(s): G20 - Parkinson's disease Status: Chronic Assessment and Plan: No acute issues continue carbidopa/levodopa (6) HTN (hypertension): Code(s): I10 - Essential (primary) hypertension Status: Chronic Assessment and Plan: Blood pressures remaining stable continue metoprolol and losartan monitor blood pressure trends (7) CHF (congestive heart failure): Code(s): I50.9 - Heart failure, unspecified Status: Chronic Assessment and Plan: echo from February 2022 showed EF of 57% with diastolic dysfunction BNP mildly elevated at 2370 and patient complained of shortness of breath CXR revealed cardiomegaly with mild interstitial edema patient was diuresed with IV Lasix and is euvolemic on exam continue home dose p.o. furosemide 40 mg daily monitor volume status closely. measure intake and output and trend daily weights (8) Acute hyponatremia: Code(s): E87.1 - Hypo-osmolality and hyponatremia Status: Acute Assessment and Plan: improved. Sodium 133 today continue to monitor sodium levels (9) Anemia: Code(s): D64.9 - Anemia, unspecified Status: Acute Assessment and Plan: H&H remaining stable, however lower than baseline iron stores are low and patient has been started on p.o. ferrous sulfate 325 mg b.i.d. stool occult blood test ordered, awaiting collection monitor H&H Subjective Date/time seen: 04/29/22 14:36 Interval history: Date of service: 04/29/2022 Duran Jansen is an 81-year-old male with a history of BPH, hypertension, CHF, Parkinson's disease, atrial fibrillation, hypertension, and diabetes who is seen in follow-up for UTI. Patient states that he is tired today. He does not wish to be bothered and asked that he be left alone. Not able to obtain any additional history. Review of Systems Review of Systems: All systems reviewed & are unremarkable except as noted in HPI and below Exam Narrative: General: well-nourished, chroni
[2022-04-29] MEDS: POTASSIUM CHLORIDE 20 MEQ TABLET PO (14:54)
[2022-04-29] MEDS: RIVAROXABAN 20 MG TABLET PO (17:15)
[2022-04-29 18:40] LABS: Glucose Point of Care 268 mg/dl (65-105)
[2022-04-29] MEDS: INSULIN GLARGINE (*BKC) 100 UNITS/ML 18 UNITS SUB-Q (20:42)
[2022-04-29 23:28] LABS: Glucose Point of Care 215 mg/dl (65-105)
[2022-04-30] VITALS (9 sets, daily range): BP systolic 108–160; BP diastolic 54–73; PULSE 61–72; RESP 16–20; TEMP 36.4–36.7; O2SAT 92–98
--- NOTE | 2022-04-30 01:35 | PCRCNOTE ---
window of time for administration has passed. See next available administration
[2022-04-30] MEDS: ALBUTEROL SULFATE NEB 2.5 MG/3 ML INH 1.25 MG INHALATION ×3 (03:05→11:57)
[2022-04-30 05:31] LABS: Glucose Point of Care 183 mg/dl (65-105)
[2022-04-30 07:48] LABS: Hematocrit 29.4 % (42.0-52.0); Hemoglobin 9.5 g/dL (14.0-18.0); Mean Corpuscular HGB Conc 32.3 g/dl (32-36); Mean Corpuscular Hemoglobin 30.3 pg (26-34); Mean Corpuscular Volume 93.6 fl (80-100); Mean Platelet Volume 12.2 fl (7.4-10.4); Platelet Count Result 228 k/mm3 (150-375); Red Blood Count 3.14 M/mm3 (4.6-6.20); Red Cell Distribution Width 14.8 % (11.5-14.5); White Blood Count 8.1 K/mm3 (4.5-10.0)
[2022-04-30 08:05] LABS: Anion Gap 8 mmol/L (8-16); Blood Urea Nitrogen 26 mg/dL (9-20); Calcium 8.3 mg/dL (8.4-10.2); Carbon Dioxide 25 mmol/L (22-30); Chloride 100 mmol/L (98-107); Estimated CRCL calculation 56 ml/min; Estimated Glomerular Filt Rate > 60; Glucose 169 mg/dL (65-110); Magnesium 1.9 mg/dL (1.6-2.3); Potassium 4.3 mmol/L (3.4-5.0); Sodium 133 mmol/L (137-145)
[2022-04-30 08:19] LABS: Glucose Point of Care 176 mg/dl (65-105)
[2022-04-30] MEDS: polyethylene glycoL 3350 17 GM POWD.PACK PO (08:57)
[2022-04-30] MEDS: LOSARTAN POTASSIUM 100 MG TABLET PO (08:57)
[2022-04-30] MEDS: RIVASTIGMINE TARTRATE 1.5 MG CAPSULE 3 MG PO (08:57)
[2022-04-30] MEDS: FUROSEMIDE 40 MG TABLET PO (08:57)
[2022-04-30] MEDS: PRAVASTATIN SODIUM 20 MG TABLET PO (08:57)
[2022-04-30] MEDS: TAMSULOSIN HCL 0.4 MG CAPSULE PO (08:57)
[2022-04-30] MEDS: DOCUSATE SODIUM 100 MG CAPSULE PO (08:58)
[2022-04-30] MEDS: INSULIN ASPART (*BKC) 100 UNITS/ML 6 UNITS SUB-Q ×2 (08:58→12:34)
[2022-04-30] MEDS: CARBIDOPA/LEVODOPA 25/100 MG TABLET 1 TABLET PO ×2 (08:58→12:34)
[2022-04-30] MEDS: VITAMIN B COMPLEX CAPSULE 1 CAP PO (08:58)
[2022-04-30] MEDS: PANTOPRAZOLE 40 MG TABLET PO (08:58)
[2022-04-30] MEDS: METOPROLOL TARTRATE 25 MG TABLET PO (08:58)
[2022-04-30 12:03] LABS: Glucose Point of Care 349 mg/dl (65-105)
[2022-04-30] MEDS: INSULIN ASPART (*BKC) 100 UNITS/ML SUB-Q (12:34)
[2022-04-30] MEDS: FERROUS SULFATE 324 MG TABLET PO (12:34)
--- NOTE | 2022-04-30 13:41 | PM.DS ---
DS: Admitting Diagnosis Discharge Date 04/30/2022 Admitting Diagnosis Altered mental status DS: Discharge Diagnosis Discharge Diagnosis (1) Urinary tract infection: Code(s): N39.0 - Urinary tract infection, site not specified Status: Acute Assessment and Plan: Urine culture with growth of >100k E coli. He was treated with IV ceftriaxone based on susceptibility report and then transition to p.o. cefdinir to complete a 7 day course during admission. Leukocytosis resolved and patient remained afebrile. (2) Encephalopathy: Code(s): G93.40 - Encephalopathy, unspecified Status: Resolved Assessment and Plan: Suspect toxic metabolic encephalopathy secondary to UTI. Mental status improved with treatment of urinary tract infection and patient was A&Ox4. Head CT and brain MRI completed with no acute findings. TSH, B12, folate within normal limits. (3) Generalized weakness: Code(s): R53.1 - Weakness Status: Acute Assessment and Plan: Likely acute on chronic, worsened by acute UTI. Participated in PT/OT during admission and will continue with rehab following discharge (4) Diabetes mellitus with hyperglycemia: Code(s): E11.65 - Type 2 diabetes mellitus with hyperglycemia Status: Acute Assessment and Plan: A1c is 6.8 (however could be affected by anemia as H/H lower than baseline). Blood sugars were poorly controlled during admission ranging from 400-500. No signs/symptoms of DKA with normal anion gap and normal BOHB. Hyperglycemia possibly exacerbated by dietary issue. Patient was restarted on diabetic diet and insulin regimen was adjusted with improvement in blood sugars. Lantus was increased to 15 units q.h.s. and 5 units NovoLog scheduled with meals was added. Patient will continue with sliding scale insulin. Blood sugars to be monitored at facility ACHS and hypoglycemic protocol will be implemented. Patient will continue home metformin and Tradjenta. (5) Parkinson disease: Code(s): G20 - Parkinson's disease Status: Chronic Assessment and Plan: No acute issues. Continue carbidopa/levodopa (6) HTN (hypertension): Code(s): I10 - Essential (primary) hypertension Status: Chronic Assessment and Plan: Blood pressures remained stable. Continue home metoprolol and losartan (7) CHF (congestive heart failure): Code(s): I50.9 - Heart failure, unspecified Status: Chronic Assessment and Plan: echo from February 2022 showed EF of 57% with diastolic dysfunction. BNP mildly elevated at 2370 and patient complained of shortness of breath. CXR revealed cardiomegaly with mild interstitial edema. Patient received a couple doses of IV Lasix with improvement in her volume status. He remained euvolemic during my encounters. He will continue home Lasix 40 mg daily. (8) Acute hyponatremia: Code(s): E87.1 - Hypo-osmolality and hyponatremia Status: Acute Assessment and Plan: Sodium levels were monitored and remained stable (9) Anemia: Code(s): D64.9 - Anemia, unspecified Status: Acute Assessment and Plan: H&H remained stable, however lower than baseline. Iron stores are low and patient has been started on p.o. ferrous sulfate 325 mg b.i.d. Stool occult blood test ordered but was not collected. Continue with outpatient monitoring and routine blood work DS: Summary Hospital Course Hospital Course: Date of service: 04/23/2022 Date of discharge: 04/30/2022 Duran Jansen is an 81-year-old male with a history of BPH, hypertension, CHF, Parkinson's disease, atrial fibrillation, hypertension, and diabetes who presented to the emergency department on 04/23/2022 from his nursing facility given change in mental status. His noted that he was slower to answer questions had difficulty processing. On presentation to the ED, his vital signs were stable,
[2022-04-30 14:56] LABS: EDCOVIDSCREEN Negative (Negative)
== END 2022-04-30 16:25 | DRG 689 ==
LOC: ANHED 13:55 → ANH3MEDSUR 15:33
PROVIDERS: Nurse Practitioner; Admitting Provider Internal Medicine; Emergency Provider Emergency Medicine; PCP Internal Medicine; Visit Provider Physician Assistant
DX: N39.0 Urinary tract infection, site not specified (principal); G92.9 Unspecified toxic encephalopathy; I50.33 Acute on chronic diastolic (congestive) heart failure; I48.20 Chronic atrial fibrillation, unspecified; E87.1 Hypo-osmolality and hyponatremia; I11.0 Hypertensive heart disease with heart failure; D64.9 Anemia, unspecified; E11.65 Type 2 diabetes mellitus with hyperglycemia; E11.40 Type 2 diabetes mellitus with diabetic neuropathy, unspecified; M81.0 Age-related osteoporosis without current pathological fracture; N40.0 Benign prostatic hyperplasia without lower urinary tract symptoms; B96.20 Unspecified Escherichia coli [E. coli] as the cause of diseases classified elsewhere; G20 Parkinson's disease; Z20.822 Contact with and (suspected) exposure to COVID-19; Z87.891 Personal history of nicotine dependence; Z79.4 Long term (current) use of insulin
CPT/HCPCS: 36415; 51701; 70450; 70551; 71045; 74018; 80048; 80053; 81001; 82010; 82247; 82248; 82607; 82728; 82746; 82948; 83010; 83036; 83540; 83550; 83605; 83615; 83735; 83880; 84155; 84165; 84238; 84300; 84443; 84466; 85025; 85027; 85046; 85610; 85730; 86880; 87077; 87086; 87088; 87186; 87426; 87637; 92610; 93005; 93970; 94640; 97161; 97166; 99285; A9270; C9803; J0696; J1815; J1940; J3475; J7030

== ENCOUNTER 2023-01-06 14:51 | Inpatient (IN) | payer MEDICARE, MEDICAID, SELFPAY ==
[2023-01-06] VITALS (55 sets, daily range): BP systolic 85–145; BP diastolic 45–92; PULSE 72–100; RESP 15–38; TEMP 36.4–37.7; O2SAT 85–100
--- NOTE | ~2023-01-06 | CT_ITS ---
EXAMINATION: CT brain wo con INDICATION: Head injury COMPARISON: 04/23/2022 TECHNIQUE: Standard unenhanced head CT. The dose-length product (DLP) was 605.33 mGy-cm. The mA was a djusted according to patient size. Iterative reconstruction technique was employed. FINDINGS: There is no acute intraparenchymal hemorrhage. No evidence of mass lesion. No evidence of a cute infarction. There is moderate periventricular and subcortical hypodensity probably related to sm all vessel ischemic disease. There is moderate prominence of the sulci and ventricles related to cere bral atrophy. Intracranial calcified cerebral atherosclerosis is noted. There are no extra-axial jesus ections. There is no mass effect or midline shift. The orbits and soft tissues are unremarkable. Ther e are bilateral mastoid effusions. IMPRESSION: 1. No acute intracranial abnormality. 2. Age related findings. Reviewed, dictated and finalized at location F.
--- NOTE | ~2023-01-06 | XR_ITS ---
EXAMINATION: XR small bowel follow through DATE: 01/10/2023 12:59 INDICATION: Anemia. Occult blood in stool. TECHNIQUE: Oral contrast was administered, and a time course of radiographs of the abdomen was obtain ed. Fluoroscopy of the small bowel was performed. Fluoroscopy exposure time was 0.3 minutes. The tota l number of images was 16. COMPARISON: None. FINDINGS: There are no dilated loops of bowel. There is no mass or stricture. Transit time from the stomach to proximal colon was approximately 4 hours. IMPRESSION: 1. Normal small bowel series. Reviewed, dictated and finalized at location A.
--- NOTE | 2023-01-06 15:09 | ECG_ITS ---
Measurements Intervals [place] Rate: 75 P: AR: 0 QRS: -1 QRSD: 95 T: 46 QT: 385 QTc: 432 Interpretive Statements BASELINE ARTIFACT REDUCED ECG QUALITY SUSPECT SINUS RHYTHM NONSPECIFIC ST & T-WAVE ABNORMALITY ABNORMAL ECG COMPARED TO ECG 04/23/2022 11:17:35 MORE BASELINE ARTIFACT NOTED, NO OBVIOUS CHANGES Electronically Signed On 01-07-2023 7:11:47 CDT by Ousmane Horton M.D.
[2023-01-06 15:30] LABS: Basophils Percent Auto 0.2 % (0.2-1.2); Eosinophils Absolute Auto 0.2 K/mm3 (0-0.3); Eosinophils Percent Auto 2.1 % (0-4.4); Immature Granulocyte Absolute 0.04 K/mm3 (0.00-0.031); Immature Granulocyte Percent A 0.4 % (0-0.5); Lymphocytes Absolute Auto 2.47 K/mm3 (0.9-3.2); Lymphocytes Percent Auto 27.4 % (18.3-44.2); Mean Corpuscular HGB Conc 27.9 g/dl (32-36); Mean Corpuscular Hemoglobin 23.4 pg (26-34); Mean Corpuscular Volume 83.9 fl (80-100); Mean Platelet Volume 9.9 fl (7.4-10.4); Monocytes Percent Auto 11.3 % (2.6-8.5); Neutrophils Absolute Auto 5.3 K/mm3 (1.3-6.7); Neutrophils Percent Auto 58.6 % (45.5-73.1); Nucleated Red Blood Cells Perc 0.2 % (0.0-0.2); Platelet Count Result 266 k/mm3 (150-375); Red Blood Count 2.05 M/mm3 (4.6-6.20); Red Cell Distribution Width 17.8 % (11.5-14.5)
[2023-01-06] MEDS: SODIUM CHLORIDE 0.9% IV 1,000 ML 999 ML IV CONT (15:37)
[2023-01-06 15:43] LABS: Alanine Aminotransferase 14 U/L (6-50); Albumin Level 3.6 g/dL (3.5-5.1); Alkaline Phosphatase 72 U/L (38-126); Anion Gap 11 mmol/L (8-16); Aspartate Amino Transferase 21 U/L (17-59); Bilirubin,Total 0.3 mg/dL (0.2-1.3); Blood Urea Nitrogen 28 mg/dL (9-20); Calcium 8.6 mg/dL (8.4-10.2); Carbon Dioxide 19 mmol/L (22-30); Chloride 106 mmol/L (98-107); Estimated CRCL calculation 30 ml/min; Estimated Glomerular Filt Rate 36; Glucose 117 mg/dL (65-110); Potassium 4.4 mmol/L (3.4-5.0); Sodium 136 mmol/L (137-145)
[2023-01-06 15:48] LABS: Hematocrit 17.2 % (42.0-52.0); Hemoglobin 4.8 g/dL (14.0-18.0)
[2023-01-06 15:51] LABS: Hypochromasia 2+ (NORMAL); Platelet Estimate Adequate (Adequate); Schistocytes None Seen (NORMAL)
[2023-01-06 15:52] LABS: Anisocytosis 3+ (NORMAL)
[2023-01-06 15:59] LABS: INR 1.5; Prothrombin Time 18.5 Seconds (11.1-14.7)
[2023-01-06 16:10] LABS: NT Pro B Type Natriuretic Pept 475 pg/mL (19.9-100)
--- NOTE | 2023-01-06 16:15 | ED.AMS ---
HPI - Altered Mental Status General Chief Complaint: Altered Mental Status Stated Complaint: AMS, low bp Time Seen by Provider: 01/06/23 15:12 History of Present Illness HPI narrative: 82-year-old male with history of Parkinson's disease, CHF, A-fib on Xarelto presenting to the ED for evaluation of increased generalized weakness. Patient went to ambulate at his half-way facility this morning and felt too weak to get out of bed. Patient was found to be hypotensive and was transferred to the emergency department for further work-up. Patient does report having a fall approximately 1 week ago but they did not report any pain or injury from the fall so he was observed at the facility and not transferred. Patient denies any headache. Patient denies any associated nausea vomiting. Patient does report over the course of the last few weeks he has had some dark stool. Related Data Home Medications Medication Instructions Recorded Confirmed vitamin B complex (B 1 tablet PO DAILY 11/17/20 04/23/22 Complex-Vitamin B12 tablet) glucosamine sulf dipot 1 cap PO BID 01/27/21 04/23/22 chlr,msm,chond 550 mg-C 30 mg-richard 1 mg capsule (Glucosamine Chondroitin) metoprolol tartrate 25 mg tablet 25 mg PO BID 07/27/21 04/23/22 calcium carbonate 600 mg calcium 600 mg PO DAILY 01/19/22 04/23/22 (1,500 mg) tablet ergocalciferol (vitamin D2) 1,250 1,250 mcg PO WEEKLY 01/19/22 04/23/22 mcg (50,000 unit) capsule (Vitamin D2) linagliptin 5 mg tablet 5 mg PO QAM 02/09/22 04/23/22 loperamide 2 mg capsule 2 mg PO Q8-10H PRN Diarrhea 02/09/22 04/23/22 Allergies Allergy/AdvReac Type Severity Reaction Status Date / Time No Known Allergies Allergy Verified 06/09/22 11:26 Review of Systems Review of Systems: All systems reviewed & are unremarkable except as noted in HPI and below PMFSH Past Medical History Medical History (Updated 01/06/23 @ 21:09 by Jono Barry MD) Aspergillus BPH (benign prostatic hyperplasia) Calcium deposit in bursa, left knee CHF (congestive heart failure) Diabetes Esophageal reflux disease Hernia History of atrial fibrillation History of CHF (congestive heart failure) History of diabetic neuropathy legs and feet History of hypertension History of osteoporosis History of Parkinson's disease HTN (hypertension) Surgical History Surgical History (Updated 01/06/23 @ 18:40 by Alanna Jacobs NP) H/O hernia repair History of appendectomy History of lobectomy of lung History of lung surgery (~1989) History of rotator cuff surgery both shoulders. One in the 80's and the other shoulder in the 90's S/P ablation of atrial fibrillation Family History Family History Mother Heart disease Cerebrovascular accident Arthritis Father Diabetes mellitus Social History Social History (Updated 01/06/23 @ 18:40 by Alanna Jacobs NP) Social History: The patient resides at [facility]. His is the durable power sourcing assistant for healthcare. They have 4 children. 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 HEAD: normocephalic, atraumatic. EYES: Pale conjunctiva NOSE: Normal no drainage EARS:TMS clear with good light reflex. THROAT: Pharynx clear, no exudate. NECK: Supple. No adenopathy, no masses. RESPIRATORY: Airway patent, respirations nonlabored. Clear to auscultation bilaterally, no rales, rhonchi, wheezing. CARDIOVASCULAR: Regular rate and rhythm without murmurs rubs or gallops. ABDOMINAL: Soft, nontender, no
[2023-01-06 16:52] LABS: Appearance Urine Clear (Clear); Bilirubin Urine Negative (Negative); Blood Urine Negative (Negative); Color Urine Yellow (Yellow); Glucose Urine UA Negative (Negative); Ketones Urine Negative (Negative); Leukocyte Esterase Ur Negative LEU/UL (Negative); Nitrate Urine Negative (Negative); Protein Urine Negative (Negative); Specific Grav Ur 1.014 (1.001-1.035); Urobilinogen Urine 0.2 mg/dL (<2.0)
[2023-01-06 16:53] LABS: Add Urine Microscopic? NO
[2023-01-06] MEDS: PANTOPRAZOLE SODIUM IV 40 MG VIAL IV PUSH (17:11)
--- NOTE | 2023-01-06 18:34 | PM.IMHP ---
H&P: HPI History of Present Illness Date/Time: 01/06/23 18:34 Chief Complaint: Altered mental status Narrative: This is an 82-year-old male patient who has a history of atrial fibrillation and is chronically on Xarelto. The patient came to the emergency room with increased generalized weakness. The patient comes from [facility]. The and son are at the bedside answering questions for the patient. The patient is very hard of hearing. The stated that earlier today the patient was slightly confused. The patient stated that he was just very weak today. The patient was also found to be hypotensive at the residential and was sent to the emergency room for further workup. It was reported that the patient did have a fall approximately week ago and was never reported that he had any injury from the fall. The patient denies any fever or chills or any nausea vomiting at this time. He did report that over the last few weeks he did have some dark stools. His H&H today was found to be 4.8 and 17.2. Previous H&H on 04/30/2022 was 9.5 and 29.4. Sodium was found be 136 today however his last sodium on 04/30/2022 was reported as 133. His BUN is 28 today with a creatinine of 1.8. Previous BUN was 26 on 04/30/2022 and his creatinine was normal at the time. His GFR is 36 today with a previous normal GFR greater than 60. His urine was negative for UTI. Head CT today was read as the followingNo acute intracranial abnormality. 2. Age related findings. The patient was given IV fluids, Protonix and given a unit of blood in the emergency room. Initially his blood pressure was 85/65 and he was given IV fluids. GI was consulted. The patient is being admitted to observation status on the date of service of 01/06/2023. Review of Systems Review of Systems: All systems reviewed & are unremarkable except as noted in HPI and below Constitutional: Constitutional: Reports as per HPI and Reports no additional constitutional complaints Eyes: Eyes: Reports as per HPI and Reports no additional eye complaints ENT: Reports system reviewed and no additional complaints, except as documented and Reports Normal hearing present Cardiovascular: Cardiovascular: Reports no additional cardiovascular complaints Respiratory: Respiratory: Reports no additional respiratory complaints and Reports no additional respiratory complaints Gastrointestinal: Gastrointestinal: Reports as per HPI and Reports no additional gastrointestinal complaints Musculoskeletal: Musculoskeletal: Reports no additional musculoskeletal complaints Integumentary/Breasts: Skin/Breast: Reports system reviewed and no additional complaints, except as docu and Reports as per HPI Neurologic: Reports system reviewed and no additional complaints, except as documented, Reports as per HPI and Reports Normal hearing present Psychiatric: Psychiatric: Reports no additional psychiatric complaints and Reports as per HPI Endocrine: Endocrine: Reports no additional endocrine complaints Hematologic/Lymphatic: Hematologic/Lymphatic: Reports no additional hematologic/lymphatic complaints Allergic/Immunologic: Allergic/Immunologic: Reports no additional allergic/immunologic complaints [facility] Past Medical History Medical History Aspergillus BPH (benign prostatic hyperplasia) Calcium deposit in bursa, left knee CHF (congestive heart failure) Diabetes Esophageal reflux disease Hernia History of atrial fibrillation History of CHF (congestive heart failure) History of diabetic neuropathy legs and feet History of hypertension History of osteoporosis History of Parkinson's disease HTN (hypertension) Surgical History Surgical History (Updated 01/06/23 @ 18:40 by Alanna Jacobs NP) H/O hernia repair History of appendectomy History of lobectomy of lung History of lung surgery (~1989) History of rotator cuff surgery both shoul
[2023-01-06] MEDS: SODIUM CHLORIDE 0.9% IV 250 ML 30 ML IV CONT (19:14)
--- NOTE | 2023-01-06 19:15 | PC.NURSE ---
assumed care. pt resting per cart in no distress. PRBCs infusing without difficulty. pt has no complaints at this time. awaiting bed assignment. family at bedside.
--- NOTE | 2023-01-06 23:13 | PC.NURSE ---
This patient, Duran Jansen, was admitted to IMU Room 205-01 on 01/06/23 at 2117. Patient/family oriented to hospital policies and general routines including ID bracelet, bed and alarms, visiting hours, pain management, procedures, bathroom and other care routines, personal items, smoking policy, room service/diet, and visiting hours. Information on how to activate the Rapid Response Team has been discussed. Patient/Family are encouraged to report perceived risks to care and to ask questions if they do not understand what they are told or what they should do.
[2023-01-07] VITALS (12 sets, daily range): BP systolic 116–150; BP diastolic 54–77; PULSE 77–102; RESP 16–22; TEMP 36.1–37.7; O2SAT 92–97
[2023-01-07 01:26] LABS: Glucose Point of Care 143 mg/dl (65-105)
--- NOTE | 2023-01-07 02:26 | PC.NURSE ---
RAYSAAlycia Lindsey called to make aware that her is being moved to ICU 8 but is still IMU status.
--- NOTE | 2023-01-07 02:57 | PC.NURSE ---
This patient, Duran Jansen, was transferred to ICU 8 on 01/07/23 at 0258 as an IMU over flow. Personal belongings sent with patient. Report given to Sheri ADAIR. Appropriate documentation sent with patient. notified of transfer.
--- NOTE | 2023-01-07 03:16 | PC.NURSE ---
This patient, Duran Jansen, was received from [facility]- on 01/07/23 at 0305. Patient oriented to unit policies and routines. Report received from Caroline ADAIR.
[2023-01-07 04:50] LABS: Basophils Absolute Auto 0.1 K/mm3 (0.0-0.1); Basophils Percent Auto 0.5 % (0.2-1.2); Eosinophils Absolute Auto 0.3 K/mm3 (0-0.3); Eosinophils Percent Auto 2.6 % (0-4.4); Hemoglobin 7.6 g/dL (14.0-18.0); Immature Granulocyte Absolute 0.06 K/mm3 (0.00-0.031); Immature Granulocyte Percent A 0.6 % (0-0.5); Lymphocytes Percent Auto 23.7 % (18.3-44.2); Mean Corpuscular HGB Conc 30.4 g/dl (32-36); Mean Corpuscular Hemoglobin 25.4 pg (26-34); Mean Corpuscular Volume 83.6 fl (80-100); Mean Platelet Volume 10.2 fl (7.4-10.4); Monocytes Absolute Auto 0.9 K/mm3 (0.1-0.6); Monocytes Percent Auto 8.8 % (2.6-8.5); Neutrophils Absolute Auto 6.2 K/mm3 (1.3-6.7); Neutrophils Percent Auto 63.8 % (45.5-73.1); Platelet Count Result 226 k/mm3 (150-375); Red Blood Count 2.99 M/mm3 (4.6-6.20); Red Cell Distribution Width 16.4 % (11.5-14.5); White Blood Count 9.7 K/mm3 (4.5-10.0)
[2023-01-07 05:07] LABS: Alanine Aminotransferase 13 U/L (6-50); Albumin Level 3.2 g/dL (3.5-5.1); Alkaline Phosphatase 55 U/L (38-126); Anion Gap 3 mmol/L (8-16); Aspartate Amino Transferase 19 U/L (17-59); Bilirubin,Total 0.6 mg/dL (0.2-1.3); Blood Urea Nitrogen 26 mg/dL (9-20); Calcium 8.4 mg/dL (8.4-10.2); Carbon Dioxide 22 mmol/L (22-30); Chloride 106 mmol/L (98-107); Estimated CRCL calculation 33 ml/min; Estimated Glomerular Filt Rate 42; Glucose 133 mg/dL (65-110); Magnesium 1.7 mg/dL (1.6-2.3); Sodium 131 mmol/L (137-145)
[2023-01-07 05:24] LABS: Hemoglobin A1C 7.1 % (<5.7)
[2023-01-07] MEDS: CARBIDOPA/LEVODOPA 25/100 MG TABLET 1 TABLET PO ×4 (08:57→21:13)
[2023-01-07] MEDS: FUROSEMIDE INJ 40 MG/4 ML VIAL IV PUSH (08:57)
[2023-01-07] MEDS: RIVASTIGMINE TARTRATE 1.5 MG CAPSULE 3 MG PO ×2 (08:58→16:51)
[2023-01-07] MEDS: TAMSULOSIN HCL 0.4 MG CAPSULE PO (08:58)
[2023-01-07] MEDS: PANTOPRAZOLE SODIUM IV 40 MG VIAL IV PUSH (08:58)
[2023-01-07 10:09] LABS: Hematocrit 25.3 % (42.0-52.0); Hemoglobin 7.9 g/dL (14.0-18.0)
--- NOTE | 2023-01-07 10:25 | PM.IMPN ---
Progress Note: A&P Assessment and Plan (1) GI bleed: Code(s): K92.2 - Gastrointestinal hemorrhage, unspecified Status: Acute Assessment and Plan: Possible acute GI bleed Unclear source of bleeding The patient was given 2 units of blood. GI has been consulted. Check H&H every 6 hours. His H&H is 4.8 and 17.2. With previous levels of 9.5 and 29.4. The patient is currently NPO except for ice chips. Continue with IV pantoprazole. (2) CHF (congestive heart failure): Code(s): I50.9 - Heart failure, unspecified Status: Chronic Assessment and Plan: Patient has taught ptotic dysfunction Last echo was 03/20/2022 which was read as diastolic dysfunction with ejection fraction of 57%. Compensated Hold diuretic medication because of hypotension (3) Diabetes mellitus with hyperglycemia: Code(s): E11.65 - Type 2 diabetes mellitus with hyperglycemia Status: Acute Assessment and Plan: Accu-Cheks every 6 hours with sliding scale insulin. (4) Acute hyponatremia: Code(s): E87.1 - Hypo-osmolality and hyponatremia Status: Acute Assessment and Plan: Patient's sodium levels 136 previously 133. This may be related to his 3rd spacing and congestive heart failure. (5) HTN (hypertension): Code(s): I10 - Essential (primary) hypertension Status: Chronic Assessment and Plan: The patient is hypotensive at this time due to the acute blood loss. (6) BPH (benign prostatic hyperplasia): Code(s): N40.0 - Benign prostatic hyperplasia without lower urinary tract symptoms Status: Acute Assessment and Plan: Continue with home medications once they are verified. (7) Hyperlipidemia: Code(s): E78.5 - Hyperlipidemia, unspecified Status: Acute Assessment and Plan: Continue with home medications once they are verified. (8) Parkinson disease: Code(s): G20 - Parkinson's disease Status: Chronic Assessment and Plan: Continue with carbidopa levodopa. (9) A-fib: Code(s): I48.91 - Unspecified atrial fibrillation Status: Acute Assessment and Plan: His metoprolol will be on hold due to his hypotensive episode Xarelto is on hold due to his GI bleed. (10) Acute renal failure: Code(s): N17.9 - Acute kidney failure, unspecified Status: Acute Assessment and Plan: Because hypotension The patient was given a L fluid in the emergency room. Chronically shortness in a Recheck labs in the a.m.. (11) Acute hypotension: Code(s): I95.9 - Hypotension, unspecified Status: Acute Assessment and Plan: Possible for hypovolemia due to profound anemia and dehydration Received blood transfusion Hold diuretic medication Continue normal saline IV Subjective Date/time seen: 01/07/23 10:25 Interval history: Received 2 pack RBC yesterday, hemoglobin stable, 7.9 in the morning, patient afebrile, blood pressure stable Exam Narrative: GENERAL: Pleasant, in no acute distress. Well-nourished. - EYES: EOMI. Anicteric. - HENT: Moist mucous membranes. - LUNGS: Clear to auscultation bilaterally, no wheezing, rhonchi, or rales. - CARDIOVASCULAR: Regular rate and rhythm. No murmur. No JVD. - ABDOMEN: Soft, non-tender and non-distended. No palpable masses. - EXTREMITIES: No edema. Peripheral pulses 2+. Non-tender. - NEUROLOGIC: No focal neurological deficits. CN II-XII grossly intact. - PSYCHIATRIC: Awake, Alert and oriented x 3. Appropriate mood and affect. - SKIN: No rashes or lesions. Warm. - LYMPH: No cervical lymphadenopathy. Objective Data Vital Signs Vital Signs: Vital Signs - 24 hr 01/06/23 15:01 01/06/23 15:03 01/06/23 15:05 Temperature Pulse Rate 82 82 78 Respiratory Rate 19 15 18 Blood Pressure 85/65 L 85/65 L Pulse Oximetry 97 96 Oxygen Delivery Room Air 01/06/23 15:15 01/06/23 15:16 01/06/23 15:17 Temperature Puls
--- NOTE | 2023-01-07 10:44 | WPDGICN ---
Assessment and Plan Assessment and plan (1) Anemia: Code(s): D64.9 - Anemia, unspecified Status: Acute Assessment and Plan: Patient with anemia. Occult blood noted to be positive for stool. Patient has been anticoagulated for some time was Xarelto because of atrial fibrillation. Undoubtedly this contributes to the potential for GI blood loss. Plan for patient be transfused to a stable hemoglobin. Colonoscopy an EGD will be planned to search for source of blood loss. Anticoagulation will be held in the interim. further recommendations after endoscopy accomplished. (2) Occult blood in stools: Code(s): R19.5 - Other fecal abnormalities Status: Acute Assessment and Plan: Occult blood in stool suggest anemia related to GI bleeding source. (3) Parkinson disease: Code(s): G20 - Parkinson's disease Status: Chronic (4) A-fib: Code(s): I48.91 - Unspecified atrial fibrillation Status: Acute (5) Chronic anticoagulation: Code(s): Z79.01 - senior living (current) use of anticoagulants Status: Acute Assessment and Plan: Patient anticoagulated because of atrial fibrillation. Anticoagulation will need to be held until it is determined that is safe to resume. GI Consult Note Consult date/time: 01/07/23 10:44 Reason for consult: Anemia, occult blood in stool. HPI: Duran Jansen is a 82 year old male I am asked see at the request of the emergency room because of profound anemia with occult blood in stool. Patient currently resides at a long-term. He is known to have Parkinson's disease. He is very hard hearing and difficulty answer questions. Appears somewhat confused. Mental status is somewhat uncertain what the baseline is. Patient and family of reported that he has may have had dark stools over the last week or 2. No overt bleeding as described. Patient denies any bruising or bleeding elsewhere. Family history is noncontributory in this regards as well. Patient currently admitted to the IMU for transfusions. Patient denies abdominal pain. Review of Systems Review of Systems: ROS unobtainable: Yes unobtainable due to mental status PMFSH Past Medical History Medical History Aspergillus BPH (benign prostatic hyperplasia) Calcium deposit in bursa, left knee CHF (congestive heart failure) Diabetes Esophageal reflux disease Hernia History of atrial fibrillation History of CHF (congestive heart failure) History of diabetic neuropathy legs and feet History of hypertension History of osteoporosis History of Parkinson's disease HTN (hypertension) Surgical History Surgical History (Updated 01/06/23 @ 18:40 by Alanna Jacobs NP) H/O hernia repair History of appendectomy History of lobectomy of lung History of lung surgery (~1989) History of rotator cuff surgery both shoulders. One in the 80's and the other shoulder in the 90's S/P ablation of atrial fibrillation Family History Family History Mother Arthritis Heart disease Cerebrovascular accident Acute myocardial infarction Congestive heart failure Father Diabetes mellitus Sibling Asthma Social History Social History (Updated 01/06/23 @ 22:30 by Alanna Jacobs NP) Social History: The patient resides at [facility]. His is the durable power criminal defense attorney for healthcare. They have 4 children. 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 He denies any alcohol drugs or marijuana. Code status Dnr Years smoked: 30 Smoking status: Former smoker Tobacco type: pipe and cigars Second hand tobacco smoke exposure: Yes Alcohol intake: former Alcohol use details: quit in 1989 Substance use: never Substance use type: does not use Last use: no drink since 1999 Lack of Transportation: No Lack of Food: Arnaud
[2023-01-07 11:16] LABS: Glucose Point of Care 162 mg/dl (65-105)
--- NOTE | 2023-01-07 11:25 | PC.NURSE ---
This patient, Duran Jansen, was transferred to [facility] on 01/07/23 at 1125. Personal belongings sent with patient. Report given to Milady ADAIR. Appropriate documentation sent with patient.
[2023-01-07 16:23] LABS: Glucose Point of Care 177 mg/dl (65-105)
[2023-01-07 16:59] LABS: Hematocrit 25.8 % (42.0-52.0)
[2023-01-07] MEDS: PEG (High)/E-LYTE SOLN 4,000 ML BTL 4000 ML PO (17:05)
[2023-01-07 23:55] LABS: Glucose Point of Care 147 mg/dl (65-105)
[2023-01-08 06:00] VITALS: BP 139/67; PULSE 71; RESP 16; TEMP 36.6; O2SAT 97
--- NOTE | 2023-01-08 07:29 | PC.NURSE ---
Upon the beginning of night nurse on 01/07/23 pt was encourage and educated on the importance of completing bowel prep for colonoscopy and EGD scheduled on 01/08/23. Pt was adamant about not completing bowel prep due to him wanting to get some sleep. Pt was informed in multiple occasions throughout the night to complete so he does not have to restart the process again. Pt states I know now, I ate a bag of chips and drank soda, that's what happened to me. Those chips got me here at the hospital. Pt was given a last warning about making Dr. Sofia aware of his decision to refuse bowel prep, pt response was, I do not want to finish, you can tell the doctor. I am done! Slams water jug on table. I want to go to sleep! Okay!? Now do you want to punch me in my face? Pt was told, of course I do not want to punch you in the face. I just want to make sure you follow the plan of care so we can properly treat you. Pt was asked if he understood everything and pt states, yes! Dr. Sofia was called at 0030 on 01/08/23 made aware of situation and no new orders were given. RN on standby for any new plan of care.
[2023-01-08] MEDS: CARBIDOPA/LEVODOPA 25/100 MG TABLET 1 TABLET PO ×4 (08:40→21:06)
[2023-01-08] MEDS: RIVASTIGMINE TARTRATE 1.5 MG CAPSULE 3 MG PO ×2 (08:40→17:55)
[2023-01-08] MEDS: PANTOPRAZOLE SODIUM IV 40 MG VIAL IV PUSH (08:41)
[2023-01-08 08:48] LABS: Basophils Percent Auto 0.4 % (0.2-1.2); Eosinophils Absolute Auto 0.2 K/mm3 (0-0.3); Eosinophils Percent Auto 2.9 % (0-4.4); Hematocrit 25.9 % (42.0-52.0); Immature Granulocyte Absolute 0.02 K/mm3 (0.00-0.031); Immature Granulocyte Percent A 0.3 % (0-0.5); Lymphocytes Absolute Auto 1.47 K/mm3 (0.9-3.2); Lymphocytes Percent Auto 20.4 % (18.3-44.2); Mean Corpuscular HGB Conc 30.9 g/dl (32-36); Mean Corpuscular Hemoglobin 25.7 pg (26-34); Mean Corpuscular Volume 83.3 fl (80-100); Mean Platelet Volume 9.7 fl (7.4-10.4); Monocytes Absolute Auto 0.7 K/mm3 (0.1-0.6); Monocytes Percent Auto 9.8 % (2.6-8.5); Neutrophils Absolute Auto 4.8 K/mm3 (1.3-6.7); Neutrophils Percent Auto 66.2 % (45.5-73.1); Platelet Count Result 215 k/mm3 (150-375); Red Blood Count 3.11 M/mm3 (4.6-6.20); Red Cell Distribution Width 17.1 % (11.5-14.5); White Blood Count 7.2 K/mm3 (4.5-10.0)
[2023-01-08 08:57] LABS: Anion Gap 7 mmol/L (8-16); Blood Urea Nitrogen 18 mg/dL (9-20); Calcium 8.3 mg/dL (8.4-10.2); Carbon Dioxide 25 mmol/L (22-30); Chloride 102 mmol/L (98-107); Estimated CRCL calculation 49 ml/min; Estimated Glomerular Filt Rate 58; Glucose 167 mg/dL (65-110); Sodium 134 mmol/L (137-145)
[2023-01-08] MEDS: TAMSULOSIN HCL 0.4 MG CAPSULE PO (09:40)
--- NOTE | 2023-01-08 10:13 | WPDGIPROGNO ---
Progress Note: A&P Assessment and Plan (1) Occult blood in stools: Code(s): R19.5 - Other fecal abnormalities Status: Acute Assessment and Plan: Patient with occult blood in stool. Concomitant with anemia suspicious for possible GI lesion explaining anemia. Patient initially refused endoscopy last night. Currently agrees to proceed with procedure but will agree to preparation with NG tube. Will reschedule colonoscopy and endoscopy for tomorrow. (2) Anemia: Code(s): D64.9 - Anemia, unspecified Status: Acute Assessment and Plan: Anemia stable after transfusion. No additional obvious bleeding noted. (3) Chronic anticoagulation: Code(s): Z79.01 - senior care (current) use of anticoagulants Status: Acute Assessment and Plan: Anticoagulation on hold because of anemia and occult blood in stool. Subjective Date/time seen: 01/08/23 10:13 Interval history: Patient alert comfortable this morning. Anticipated to do endoscopy today but patient refused preparation and procedures last evening. States he was confused. No additional bleeding reported. Patient denies abdominal pain. Review of Systems Review of Systems: Review of systems noncontributory. Exam Narrative: Physical exam reveals patient to be alert comfortable at rest. Vital signs stable. HEENT exam reveals no icterus. Lungs are clear. Heart without murmur. Abdomen bowel sounds present soft nontender with no organomegaly. Objective Data Vital Signs Vital Signs: Vital Signs - 24 hr 01/07/23 11:24 01/07/23 12:45 01/07/23 13:22 Temperature 97.8 F Pulse Rate 77 Respiratory Rate 22 H Blood Pressure 136/66 Pulse Oximetry 93 Oxygen Delivery Room Air Room Air 01/07/23 14:00 01/07/23 20:54 01/07/23 20:00 Temperature 97.8 F 98.2 F Pulse Rate 102 H 80 Respiratory Rate 20 18 Blood Pressure 116/64 135/69 Pulse Oximetry 97 95 Oxygen Delivery Room Air 01/08/23 06:00 Temperature 97.9 F Pulse Rate 71 Respiratory Rate 16 Blood Pressure 139/67 Pulse Oximetry 97 Oxygen Delivery Intake/Output Intake/Output: Intake & Output 01/05/23 01/06/23 01/07/23 01/08/23 23:59 23:59 23:59 23:59 Intake Total 950 794 Output Total 4778 750 Balance 226 -589 -750 Meds/Results Medications: Active Medications Generic Name Dose Route Start Last Admin Trade Name Abielq PRN Reason Stop Dose Admin Carbidopa/Levodopa 1 tablet 01/07/23 08:00 01/08/23 08:40 Carbidopa/Levodopa 25/100 Mg Tablet PO 1 tablet [facility] ALEX Administration Dextrose 12.5 gm 01/06/23 22:31 Dextrose 50% 25 Gm/50 Ml Syringe IV PUSH PRN PRN Hypoglycemia Protocol Glucagon 1 mg 01/06/23 22:31 Glucagon For Inj 1 Mg Vial IM PRN PRN Hypoglycemia Protocol Glucose 15 gm 01/06/23 22:31 Glucose Oral Gel 15 Gm Of Glucse In 37.5 Gm Tube PO PRN PRN Hypoglycemia Protocol Hydralazine HCl 10 mg 01/06/23 23:59 Hydralazine Hcl 20 Mg/Ml Vial IV PUSH Q8H PRN Blood Pressure - High Dextrose 1,000 mls @ 100 mls/hr 01/06/23 22:31 Dextrose 5% 1,000 Ml IVPB PRN PRN Hypoglycemia Protocol Insulin Aspart 2 - 5 units 01/07/23 00:00 01/08/23 06:16 Insulin Aspart (*Bkc) 100 Units/Ml SUB-Q Not Given Q6HR ALEX Protocol Ondansetron HCl 4 mg 01/06/23 16:39 Ondansetron Inj 4 Mg/2 Ml Vial IV PUSH Q4H PRN Nausea Pantoprazole Sodium 40 mg 01/07/23 09:00 01/08/23 08:41 Pantoprazole Sodium Iv 40 Mg Vial IV PUSH 40 mg QAM ALEX Administration Rivastigmine Tartrate 3 mg 01/07/23 09:00 01/08/23 08:40 Rivastigmine Tartrate 1.5 Mg Capsule PO 3 mg BID ALEX Administration Tamsulosin HCl 0.4 mg 01/07/23 09:00 01/08/23 09:40 Tamsulosin Hcl 0.4 Mg Capsule PO 0.4 mg DAILY ALEX Administration Radiology Results: ITS Impressions Head CT 01/06/23 16:07 VINAY
[2023-01-08] MEDS: PEG (High)/E-LYTE SOLN 4,000 ML BTL 4000 ML PO (13:05)
--- NOTE | 2023-01-08 13:17 | PM.IMPN ---
Progress Note: A&P Assessment and Plan (1) GI bleed: Code(s): K92.2 - Gastrointestinal hemorrhage, unspecified Status: Acute Assessment and Plan: Possible acute GI bleed Unclear source of bleeding The patient was given 2 units of blood. GI has been consulted. Check H&H every 6 hours. His H&H is 4.8 and 17.2. With previous levels of 9.5 and 29.4. The patient is currently NPO except for ice chips. Plans EGD Continue with IV pantoprazole. (2) CHF (congestive heart failure): Code(s): I50.9 - Heart failure, unspecified Status: Chronic Assessment and Plan: Patient has history of diastolic dysfunction Last echo was 03/20/2022 which was read as diastolic dysfunction with ejection fraction of 57%. Compensated Hold diuretic medication due to dehydration (3) Diabetes mellitus with hyperglycemia: Code(s): E11.65 - Type 2 diabetes mellitus with hyperglycemia Status: Acute Assessment and Plan: Accu-Cheks every 6 hours with sliding scale insulin. (4) Acute hyponatremia: Code(s): E87.1 - Hypo-osmolality and hyponatremia Status: Acute Assessment and Plan: , hyponatremia is improving This may be related to his 3rd spacing and congestive heart failure. (5) HTN (hypertension): Code(s): I10 - Essential (primary) hypertension Status: Chronic Assessment and Plan: The patient was hypotensive POA due to the acute blood loss and dehydration Now blood pressure stable. (6) BPH (benign prostatic hyperplasia): Code(s): N40.0 - Benign prostatic hyperplasia without lower urinary tract symptoms Status: Acute Assessment and Plan: Continue with home medications once they are verified. (7) Hyperlipidemia: Code(s): E78.5 - Hyperlipidemia, unspecified Status: Acute Assessment and Plan: Continue with home medications once they are verified. (8) Parkinson disease: Code(s): G20 - Parkinson's disease Status: Chronic Assessment and Plan: Continue with carbidopa levodopa. (9) A-fib: Code(s): I48.91 - Unspecified atrial fibrillation Status: Acute Assessment and Plan: His metoprolol will be on hold due to his hypotensive episode Xarelto is on hold due to his GI bleed. (10) Acute renal failure: Code(s): N17.9 - Acute kidney failure, unspecified Status: Acute Assessment and Plan: Because hypotension The patient was given a L fluid in the emergency room. Chronically shortness in a Recheck labs in the a.m.. BRITNEY resolves (11) Acute hypotension: Code(s): I95.9 - Hypotension, unspecified Status: Acute Assessment and Plan: Possible for hypovolemia due to profound anemia and dehydration Received blood transfusion Hold diuretic medication Received fluid resuscitation Blood pressure becomes stable Subjective Date/time seen: 01/08/23 13:17 Interval history: I saw examined patient today. Patient looks tired, has no complaints, or reluctant to answer questions. No new issue even overnight, I reviewed the labs, hemoglobin stable. Exam Narrative: GENERAL: Pleasant, in no acute distress. Well-nourished. - EYES: EOMI. Anicteric. - HENT: Moist mucous membranes. - LUNGS: Clear to auscultation bilaterally, no wheezing, rhonchi, or rales. - CARDIOVASCULAR: Regular rate and rhythm. No murmur. No JVD. - ABDOMEN: Soft, non-tender and non-distended. No palpable masses. - EXTREMITIES: No edema. Peripheral pulses 2+. Non-tender. - NEUROLOGIC: No focal neurological deficits. CN II-XII grossly intact. - PSYCHIATRIC: Awake, Alert and oriented x 3. Appropriate mood and affect. - SKIN: No rashes or lesions. Warm. - LYMPH: No cervical lymphadenopathy. Objective Data Vital Signs Vital Signs: Vital Signs - 24 hr 01/07/23 13:22 01/07/23 14:00 01/07/23 20:54 Temperature 97.8 F 98.2 F Pulse Rate 102 H 80 Respiratory Rate 20 18
[2023-01-08 14:00] VITALS: BP 132/76; PULSE 81; RESP 16; TEMP 36.4; O2SAT 98
[2023-01-08 17:09] LABS: Glucose Point of Care 208 mg/dl (65-105)
[2023-01-08 17:20] LABS: Glucose Point of Care 142 mg/dl (65-105)
[2023-01-08 21:27] VITALS: BP 158/78; PULSE 79; RESP 18; TEMP 36.8; O2SAT 98
[2023-01-09] VITALS (7 sets, daily range): BP systolic 108–159; BP diastolic 58–92; PULSE 63–99; RESP 16–22; TEMP 36.2–36.5; O2SAT 95–99
[2023-01-09 00:28] LABS: Glucose Point of Care 173 mg/dl (65-105)
[2023-01-09 05:27] LABS: Glucose Point of Care 220 mg/dl (65-105)
[2023-01-09 06:22] LABS: Basophils Percent Auto 0.5 % (0.2-1.2); Eosinophils Absolute Auto 0.3 K/mm3 (0-0.3); Eosinophils Percent Auto 3.3 % (0-4.4); Hematocrit 25.6 % (42.0-52.0); Hemoglobin 7.7 g/dL (14.0-18.0); Immature Granulocyte Absolute 0.03 K/mm3 (0.00-0.031); Immature Granulocyte Percent A 0.4 % (0-0.5); Lymphocytes Absolute Auto 1.66 K/mm3 (0.9-3.2); Lymphocytes Percent Auto 21.2 % (18.3-44.2); Mean Corpuscular HGB Conc 30.1 g/dl (32-36); Mean Corpuscular Hemoglobin 25.4 pg (26-34); Mean Corpuscular Volume 84.5 fl (80-100); Mean Platelet Volume 9.7 fl (7.4-10.4); Monocytes Absolute Auto 0.8 K/mm3 (0.1-0.6); Monocytes Percent Auto 9.6 % (2.6-8.5); Neutrophils Absolute Auto 5.1 K/mm3 (1.3-6.7); Platelet Count Result 226 k/mm3 (150-375); Red Blood Count 3.03 M/mm3 (4.6-6.20); Red Cell Distribution Width 17.2 % (11.5-14.5); White Blood Count 7.8 K/mm3 (4.5-10.0)
[2023-01-09 06:35] LABS: Anion Gap 7 mmol/L (8-16); Blood Urea Nitrogen 12 mg/dL (9-20); Calcium 8.2 mg/dL (8.4-10.2); Carbon Dioxide 25 mmol/L (22-30); Chloride 98 mmol/L (98-107); Estimated CRCL calculation 54 ml/min; Estimated Glomerular Filt Rate > 60; Glucose 211 mg/dL (65-110); Potassium 3.6 mmol/L (3.4-5.0); Sodium 130 mmol/L (137-145)
--- NOTE | 2023-01-09 08:20 | PCPTNOTE ---
Patient declined PT treatment at this time stating he completed his colon prep this morning and wants to rest. PT will continue to follow per plan of care.
[2023-01-09] MEDS: RIVASTIGMINE TARTRATE 1.5 MG CAPSULE 3 MG PO ×2 (08:25→16:58)
[2023-01-09] MEDS: PANTOPRAZOLE SODIUM IV 40 MG VIAL IV PUSH (08:25)
[2023-01-09] MEDS: CARBIDOPA/LEVODOPA 25/100 MG TABLET 1 TABLET PO ×3 (08:25→20:03)
[2023-01-09] MEDS: TAMSULOSIN HCL 0.4 MG CAPSULE PO (08:25)
--- NOTE | 2023-01-09 09:40 | P.CDI_ITS ---
CDI Query Clarification Request Documented history of CHF. CHF noted in the assessment and plan. Elevated BNP on 01/06/23 lab work. Lasix listed as a home medication. Please specify type and acuity of heart failure if known. * Acute * Chronic * Acute on Chronic * Unknown * Systolic * Diastolic * Combined Systolic and Diastolic * Unknown <Key Dailey RN - Last Filed: 01/09/23 09:42> Provider Comments Acute on chronic CHF <Pam Lucas MD - Last Filed: 01/09/23 09:46>
[2023-01-09 12:06] LABS: Glucose Point of Care 204 mg/dl (65-105)
[2023-01-09 12:31] LABS: Glucose Point of Care 198 mg/dl (65-105)
--- NOTE | 2023-01-09 13:14 | WPDANESEPPF ---
Anes - Initial Pre Proc Eval Procedure: Operation Date: 01/09/23 14:30 Proposed Procedures p Esophagogastroduodenoscopy & Colonoscopy - Karthik Sofia MD Date/Time: 01/09/23 13:14 Surgeon: Александр Bull MD Pre Op Diagnosis: Hypotension,GI Bleed Patient Data Age: 82 Gender: M Height: 1.78 m Weight: 98.6 kg Last Vital Signs Temp 36.5 C 01/09/23 05:03 Pulse 69 01/09/23 05:03 Resp 20 01/09/23 05:03 BP 150/88 H 01/09/23 05:03 Pulse Ox 98 01/09/23 05:03 O2 Del Method Room Air 01/08/23 20:00 Allergies Allergy/AdvReac Type Severity Reaction Status Date / Time No Known Allergies Allergy Verified 01/09/23 13:22 Home Medications Medication Instructions Recorded Confirmed Type vitamin B complex (B 1 tablet PO DAILY 11/17/20 01/09/23 History Complex-Vitamin B12 tablet) glucosamine sulf dipot 1 cap PO BID 01/27/21 01/09/23 History chlr,msm,chond 550 mg-C 30 mg-richard 1 mg capsule (Glucosamine Chondroitin) insulin lispro 100 unit/mL 4 - 8 unit subcut TIDWM #10 mL 02/03/21 01/09/23 Rx subcutaneous solution (Humalog U-100 Insulin) lancets (OneTouch UltraSoft #200 ea 05/10/21 01/09/23 Rx Lancets) rivaroxaban 20 mg tablet (Xarelto) 20 mg PO DAILY #90 tabs 06/28/21 01/09/23 Rx furosemide 40 mg tablet (Lasix) 40 mg PO QAM #90 tabs 07/25/21 01/09/23 Rx omeprazole 20 mg capsule,delayed 20 mg PO .qod #45 caps 07/25/21 01/09/23 Rx release losartan 100 mg tablet 100 mg PO DAILY #90 tabs 07/27/21 01/09/23 Rx metformin 1,000 mg tablet 1,000 mg PO BID #180 tabs 07/27/21 01/09/23 Rx metoprolol tartrate 25 mg tablet 25 mg PO BID 07/27/21 01/09/23 History pen needle, diabetic 31 gauge x #100 ea 11/21/21 01/09/23 Rx /16 (Comfort EZ Pen [place]) tamsulosin 0.4 mg capsule 0.4 mg PO DAILY #90 caps 12/05/21 01/09/23 Rx calcium carbonate 600 mg calcium 600 mg PO DAILY 01/19/22 01/09/23 History (1,500 mg) tablet carbidopa 25 mg-levodopa 100 mg 1 tablet PO QID #360 tabs 01/19/22 01/09/23 Rx tablet ergocalciferol (vitamin D2) 1,250 1,250 mcg PO WEEKLY 01/19/22 01/09/23 History mcg (50,000 unit) capsule (Vitamin D2) rivastigmine tartrate 3 mg capsule 3 mg PO BID #60 caps 01/31/22 01/09/23 Rx linagliptin 5 mg tablet 5 mg PO QAM 02/09/22 01/09/23 History loperamide 2 mg capsule 2 mg PO Q8H PRN Diarrhea 02/09/22 01/09/23 History polyethylene glycol 3350 17 gram 17 g PO QAM PRN constipation #30 ea 04/30/22 01/09/23 Rx oral powder packet (Miralax) acetaminophen 325 mg tablet 650 mg PO BID 01/06/23 01/09/23 History acetaminophen 325 mg tablet 650 mg PO Q8H PRN Pain (Scale 01/06/23 01/09/23 History Score 1-3) diphenhydramine HCl 25 mg capsule 25 mg PO Q8H PRN Itching 01/06/23 01/09/23 History (Benadryl) insulin aspart U-100 100 unit/mL 5 unit subcut TIDWMEAL 01/06/23 01/09/23 History (3 mL) subcutaneous pen (Novolog FlexPen U-100 Insulin aspart) insulin glargine 100 unit/mL 28 unit subcut HS 01/06/23 01/09/23 History subcutaneous solution (Lantus U-100 Insulin) insulin syringe-needle U-100 01/06/23 01/09/23 History potassium chloride 10 mEq 10 meq PO DAILY 01/06/23 01/09/23 History tablet,extended release pravastatin 20 mg tablet 20 mg PO HS 01/06/23 01/09/23 History Laboratory Tests 01/08/23 01/08/23 01/08/23 04:42 11:56 18:36 WBC RBC Hgb Hct MCV MCH MCHC RDW Plt Count MPV Immature Gran % (Auto) Neut % (Auto) Lymph % (Auto) Casey % (Auto) Eos % (Auto) Baso % (Auto) Lymph # (Auto) Casey # (Auto) Eos # (Auto) Baso # (Auto) Abs Immat Gran (auto) Absolute Neuts (auto) Absolute Nucleated RBC Nucleated RBC % Sodium Potassium
[2023-01-09 13:21] LABS: Glucose Point of Care 196 mg/dl (65-105)
[2023-01-09] MEDS: LACTATED RINGERS 1,000 ML 150 ML IV CONT (13:21)
--- NOTE | 2023-01-09 14:04 | PM.IMPN ---
Progress Note: A&P Assessment and Plan (1) GI bleed: Code(s): K92.2 - Gastrointestinal hemorrhage, unspecified Status: Acute Assessment and Plan: Possible acute GI bleed Unclear source of bleeding The patient was given 2 units of blood. GI has been consulted. Check H&H every 6 hours. His H&H is 4.8 and 17.2. With previous levels of 9.5 and 29.4. The patient is currently NPO except for ice chips. Plans EGD Continue with IV pantoprazole. pt will be having EGD and colonoscopy today (2) CHF (congestive heart failure): Code(s): I50.9 - Heart failure, unspecified Status: Chronic Assessment and Plan: Patient has history of diastolic dysfunction Last echo was 03/20/2022 which was read as diastolic dysfunction with ejection fraction of 57%. Compensated Hold diuretic medication due to dehydration (3) Diabetes mellitus with hyperglycemia: Code(s): E11.65 - Type 2 diabetes mellitus with hyperglycemia Status: Acute Assessment and Plan: Accu-Cheks every 6 hours with sliding scale insulin. (4) Acute hyponatremia: Code(s): E87.1 - Hypo-osmolality and hyponatremia Status: Acute Assessment and Plan: , hyponatremia is improving This may be related to his 3rd spacing and congestive heart failure. (5) HTN (hypertension): Code(s): I10 - Essential (primary) hypertension Status: Chronic Assessment and Plan: The patient was hypotensive POA due to the acute blood loss and dehydration Now blood pressure stable. (6) BPH (benign prostatic hyperplasia): Code(s): N40.0 - Benign prostatic hyperplasia without lower urinary tract symptoms Status: Acute Assessment and Plan: Continue with home medications once they are verified. (7) Hyperlipidemia: Code(s): E78.5 - Hyperlipidemia, unspecified Status: Acute Assessment and Plan: Continue with home medications once they are verified. (8) Parkinson disease: Code(s): G20 - Parkinson's disease Status: Chronic Assessment and Plan: Continue with carbidopa levodopa. (9) A-fib: Code(s): I48.91 - Unspecified atrial fibrillation Status: Acute Assessment and Plan: His metoprolol will be on hold due to his hypotensive episode Xarelto is on hold due to his GI bleed. (10) Acute renal failure: Code(s): N17.9 - Acute kidney failure, unspecified Status: Acute Assessment and Plan: Because hypotension The patient was given a L fluid in the emergency room. Chronically shortness in a Recheck labs in the a.m.. BRITNEY resolves (11) Acute hypotension: Code(s): I95.9 - Hypotension, unspecified Status: Acute Assessment and Plan: Possible for hypovolemia due to profound anemia and dehydration Received blood transfusion Hold diuretic medication Subjective Date/time seen: 01/09/23 14:04 Interval history: Pt admitted with GI bleed seen by GI pt will be having EGD and colonoscopy today AWaiting scopes Hb still staying low at 7.7 after blood and fluids Review of Systems Review of Systems: Some ongoing bleeding Exam Narrative: GENERAL: Pleasant, in no acute distress. Well-nourished. - EYES: EOMI. Anicteric. - HENT: Moist mucous membranes. - LUNGS: Clear to auscultation bilaterally, no wheezing, rhonchi, or rales. - CARDIOVASCULAR: Regular rate and rhythm. No murmur. No JVD. - ABDOMEN: Soft, non-tender and non-distended. No palpable masses. - EXTREMITIES: No edema. Peripheral pulses 2+. Non-tender. - NEUROLOGIC: No focal neurological deficits. CN II-XII grossly intact. - PSYCHIATRIC: Awake, Alert and oriented x 3. Appropriate mood and affect. - SKIN: No rashes or lesions. Warm. - LYMPH: No cervical lymphadenopathy. Const: General: cooperative, healthy appearing, comfortable, no acute distress, well developed, alert, awake, Physically active, average body habitus, well
--- NOTE | 2023-01-09 14:42 | SUR.OPER ---
EGD start 1438 end 1440, Colonoscopy start 1447
[2023-01-09] MEDS: ONDANSETRON INJ 4 MG/2 ML VIAL IV PUSH (15:43)
[2023-01-09 18:49] LABS: Glucose Point of Care 232 mg/dl (65-105)
[2023-01-09] MEDS: INSULIN ASPART (*BKC) 100 UNITS/ML SUB-Q (19:03)
[2023-01-09 21:21] LABS: Glucose Point of Care 254 mg/dl (65-105)
[2023-01-10 05:21] VITALS: BP 133/69; PULSE 60; RESP 18; TEMP 35.7; O2SAT 94
[2023-01-10 07:08] LABS: Basophils Percent Auto 0.3 % (0.2-1.2); Eosinophils Absolute Auto 0.3 K/mm3 (0-0.3); Eosinophils Percent Auto 4.4 % (0-4.4); Hematocrit 24.6 % (42.0-52.0); Hemoglobin 7.2 g/dL (14.0-18.0); Immature Granulocyte Absolute 0.02 K/mm3 (0.00-0.031); Immature Granulocyte Percent A 0.3 % (0-0.5); Lymphocytes Absolute Auto 1.52 K/mm3 (0.9-3.2); Lymphocytes Percent Auto 22.1 % (18.3-44.2); Mean Corpuscular HGB Conc 29.3 g/dl (32-36); Mean Corpuscular Hemoglobin 25.1 pg (26-34); Mean Corpuscular Volume 85.7 fl (80-100); Monocytes Absolute Auto 0.8 K/mm3 (0.1-0.6); Monocytes Percent Auto 10.9 % (2.6-8.5); Neutrophils Absolute Auto 4.3 K/mm3 (1.3-6.7); Platelet Count Result 219 k/mm3 (150-375); Red Blood Count 2.87 M/mm3 (4.6-6.20); Red Cell Distribution Width 17.5 % (11.5-14.5); White Blood Count 6.9 K/mm3 (4.5-10.0)
[2023-01-10 07:15] LABS: Anion Gap 3 mmol/L (8-16); Blood Urea Nitrogen 10 mg/dL (9-20); Calcium 8.1 mg/dL (8.4-10.2); Carbon Dioxide 25 mmol/L (22-30); Chloride 104 mmol/L (98-107); Estimated CRCL calculation 49 ml/min; Estimated Glomerular Filt Rate 58; Glucose 188 mg/dL (65-110); Potassium 3.7 mmol/L (3.4-5.0); Sodium 132 mmol/L (137-145)
[2023-01-10 07:51] LABS: Anisocytosis 1+ (NORMAL); Hypochromasia 1+ (NORMAL); Microcytosis 1+ (NORMAL); Platelet Estimate Adequate (Adequate); Schistocytes None Seen (NORMAL)
[2023-01-10 08:00] VITALS: PULSE 60; RESP 18; O2SAT 94
--- NOTE | 2023-01-10 09:15 | PCPTNOTE ---
The patient treatment was not able to be completed at this time due to patient out of room for testing. Will plan to continue treatment per plan of care.
[2023-01-10 11:23] LABS: Glucose Point of Care 196 mg/dl (65-105)
[2023-01-10] MEDS: PANTOPRAZOLE SODIUM IV 40 MG VIAL IV PUSH (12:20)
[2023-01-10] MEDS: CARBIDOPA/LEVODOPA 25/100 MG TABLET 1 TABLET PO ×3 (12:23→21:04)
[2023-01-10] MEDS: TAMSULOSIN HCL 0.4 MG CAPSULE PO (12:23)
[2023-01-10 13:56] VITALS: BP 153/71; PULSE 66; RESP 21; TEMP 35.8; O2SAT 97
--- NOTE | 2023-01-10 14:53 | WPDGIPROGNO ---
Progress Note: A&P Assessment and Plan (1) Occult blood in stools: Code(s): R19.5 - Other fecal abnormalities Status: Acute Assessment and Plan: No obvious bleeding noted. Occult blood in stool identified. GI series unremarkable. Small-bowel follow-through today also normal. Recommend keep patient on PPI therapy for a brief interval perhaps 2 months. Avoid NSAIDs. Probably best to hold anticoagulation for a few weeks if at all possible. Okay with GI service to advance diet and discharge. (2) Anemia: Code(s): D64.9 - Anemia, unspecified Status: Acute Assessment and Plan: Hemoglobin stable. No active bleeding noted during this hospital stay. 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 It should be stay for to start anticoagulant spot given degree of anemia would prefer to hold this for several weeks of others agree. Okay with me for discharge. Subjective Date/time seen: 01/10/23 14:53 Interval history: patient alert comfortable today no additional bleeding Noted. Review of Systems Review of Systems: Review of systems noncontributory. Exam Narrative: Physical exam reveals patient rest. Vital signs stable. Lungs are clear heart without murmur. Abdomen bowel sounds present soft nontender organomegaly. Objective Data Vital Signs Vital Signs: Vital Signs - 24 hr 01/09/23 15:02 01/09/23 15:12 01/09/23 15:22 Temperature Pulse Rate 87 77 76 Respiratory Rate 22 H 20 18 Blood Pressure 142/84 H 156/92 H 157/87 H Pulse Oximetry 97 97 99 Oxygen Delivery Room Air Room Air Room Air 01/09/23 16:40 01/09/23 19:51 01/09/23 21:35 Temperature 97.1 F L 97.1 F L Pulse Rate 70 99 Respiratory Rate 16 18 Blood Pressure 130/58 L 108/62 Pulse Oximetry 95 95 Oxygen Delivery Room Air 01/10/23 05:21 01/10/23 08:00 01/10/23 13:56 Temperature 96.3 F L 96.5 F L Pulse Rate 60 60 66 Respiratory Rate 18 18 21 H Blood Pressure 133/69 153/71 H Pulse Oximetry 94 94 97 Oxygen Delivery Room Air Intake/Output Intake/Output: Intake & Output 0801/08/23 01/09/23 01/10/23 23:59 23:59 23:59 23:59 Intake Total 569 149 9837 120 Output Total 3498 1880 1800 300 [facility] [phone] Meds/Results Medications: Active Medications Generic Name Dose Route Start Last Admin Trade Name Freq PRN Reason Stop Dose Admin Carbidopa/Levodopa 1 tablet 01/07/23 08:00 01/10/23 12:23 Carbidopa/Levodopa 25/100 Mg Tablet PO 1 tablet WMHS ALEX Administration Dextrose 12.5 gm 01/09/23 18:57 Dextrose 50% 25 Gm/50 Ml Syringe IV PUSH PRN PRN Hypoglycemia Protocol Glucagon 1 mg 01/09/23 18:57 Glucagon For Inj 1 Mg Vial IM PRN PRN Hypoglycemia Protocol Glucose 15 gm 01/09/23 18:57 Glucose Oral Gel 15 Gm Of Glucse In 37.5 Gm Tube PO PRN PRN Hypoglycemia Protocol Hydralazine HCl 10 mg 01/06/23 23:59 Hydralazine Hcl 20 Mg/Ml Vial IV PUSH Q8H PRN Blood Pressure - High Dextrose 1,000 mls @ 100 mls/hr 01/09/23 18:57 Dextrose 5% 1,000 Ml IVPB PRN PRN Hypoglycemia Protocol Insulin Aspart 2 - 5 units 01/10/23 08:00 01/10/23 12:23 Insulin Aspart (*Bkc) 100 Units/Ml SUB-Q Not Given TIDWM ALEX Protocol Ondansetron HCl 4 mg 01/06/23 16:39 01/09/23 15:43 Ondansetron Inj 4 Mg/2 Ml Vial IV PUSH 4 mg Q4H PRN Administration Nausea Pantoprazole Sodium 40 mg 01/07/23 09:00 01/10/23 12:20 Pantoprazole Sodium Iv 40 Mg Vial IV PUSH 40 mg QAM ALEX Administration Rivastigmine Tartrate 3 mg 01/07/23 09:00 01/10/23 11:36 Rivastigmine Tartrate 1.5 Mg Capsule PO Not Given BID ALEX Tamsulosin HCl 0.4 mg 01/07/23 09:00 01/10/23 12:23 Tamsulosin Hcl 0.4 Mg Capsule PO
--- NOTE | 2023-01-10 15:45 | PM.IMPN ---
Progress Note: A&P Assessment and Plan (1) GI bleed: Code(s): K92.2 - Gastrointestinal hemorrhage, unspecified Status: Acute Assessment and Plan: Possible acute GI bleed Unclear source of bleeding The patient was given 2 units of blood. GI has been consulted. Check H&H every 6 hours. His H&H is 4.8 and 17.2. With previous levels of 9.5 and 29.4. The patient is currently NPO except for ice chips. work up has been negative order venofer order cbc in am and DC HOLD OAC (2) CHF (congestive heart failure): Code(s): I50.9 - Heart failure, unspecified Status: Chronic Assessment and Plan: Patient has history of diastolic dysfunction Last echo was 03/20/2022 which was read as diastolic dysfunction with ejection fraction of 57%. Compensated Hold diuretic medication due to dehydration (3) Diabetes mellitus with hyperglycemia: Code(s): E11.65 - Type 2 diabetes mellitus with hyperglycemia Status: Acute Assessment and Plan: Accu-Cheks every 6 hours with sliding scale insulin. (4) Acute hyponatremia: Code(s): E87.1 - Hypo-osmolality and hyponatremia Status: Acute Assessment and Plan: , hyponatremia is improving This may be related to his 3rd spacing and congestive heart failure. (5) HTN (hypertension): Code(s): I10 - Essential (primary) hypertension Status: Chronic Assessment and Plan: The patient was hypotensive POA due to the acute blood loss and dehydration Now blood pressure stable. (6) BPH (benign prostatic hyperplasia): Code(s): N40.0 - Benign prostatic hyperplasia without lower urinary tract symptoms Status: Acute Assessment and Plan: Continue with home medications once they are verified. (7) Hyperlipidemia: Code(s): E78.5 - Hyperlipidemia, unspecified Status: Acute Assessment and Plan: Continue with home medications once they are verified. (8) Parkinson disease: Code(s): G20 - Parkinson's disease Status: Chronic Assessment and Plan: Continue with carbidopa levodopa. (9) A-fib: Code(s): I48.91 - Unspecified atrial fibrillation Status: Acute Assessment and Plan: His metoprolol will be on hold due to his hypotensive episode Xarelto is on hold due to his GI bleed. (10) Acute renal failure: Code(s): N17.9 - Acute kidney failure, unspecified Status: Acute Assessment and Plan: Because hypotension The patient was given a L fluid in the emergency room. Chronically shortness in a Recheck labs in the a.m.. BRITNEY resolved (11) Acute hypotension: Code(s): I95.9 - Hypotension, unspecified Status: Acute Assessment and Plan: Possible for hypovolemia due to profound anemia and dehydration Received blood transfusion Hold diuretic medication Subjective Date/time seen: 01/10/23 15:45 Interval history: Pt admitted with GI bleed seen by GI pt will be having EGD and colonoscopy today Scopes are negative small bowel negative plan dc OAC Hb still staying low at 7.2after blood and fluids Review of Systems Review of Systems: eye compliants Exam Narrative: GENERAL: Pleasant, in no acute distress. Well-nourished. - EYES: EOMI. Anicteric. - HENT: Moist mucous membranes. - LUNGS: Clear to auscultation bilaterally, no wheezing, rhonchi, or rales. - CARDIOVASCULAR: Regular rate and rhythm. No murmur. No JVD. - ABDOMEN: Soft, non-tender and non-distended. No palpable masses. - EXTREMITIES: No edema. Peripheral pulses 2+. Non-tender. - NEUROLOGIC: No focal neurological deficits. CN II-XII grossly intact. - PSYCHIATRIC: Awake, Alert and oriented x 3. Appropriate mood and affect. - SKIN: No rashes or lesions. Warm. - LYMPH: No cervical lymphadenopathy. Objective Data Vital Signs Vital Signs: Vital Signs - 24 hr 01/09/23 16:40 01/09/23 19:51 01/09/23 21:35 Temperature 36
[2023-01-10] MEDS: ACETAMINOPHEN 325 MG TABLET 650 MG PO (16:22)
[2023-01-10 16:25] LABS: Glucose Point of Care 199 mg/dl (65-105)
[2023-01-10] MEDS: RIVASTIGMINE TARTRATE 1.5 MG CAPSULE 3 MG PO (17:17)
[2023-01-10] MEDS: FAMOTIDINE 20 MG TABLET PO (21:09)
[2023-01-10 22:00] VITALS: BP 150/71; PULSE 64; RESP 20; TEMP 36.2; O2SAT 97
[2023-01-10 22:55] LABS: Glucose Point of Care 243 mg/dl (65-105)
[2023-01-11 06:00] VITALS: BP 150/71; PULSE 67; RESP 18; TEMP 36.3; O2SAT 98
[2023-01-11 06:26] LABS: Hematocrit 26.1 % (42.0-52.0); Hemoglobin 7.6 g/dL (14.0-18.0); Mean Corpuscular HGB Conc 29.1 g/dl (32-36); Mean Corpuscular Hemoglobin 24.9 pg (26-34); Mean Corpuscular Volume 85.6 fl (80-100); Mean Platelet Volume 9.9 fl (7.4-10.4); Platelet Count Result 212 k/mm3 (150-375); Red Blood Count 3.05 M/mm3 (4.6-6.20); Red Cell Distribution Width 17.2 % (11.5-14.5); White Blood Count 7.2 K/mm3 (4.5-10.0)
[2023-01-11 06:41] LABS: Anion Gap 3 mmol/L (8-16); Blood Urea Nitrogen 11 mg/dL (9-20); Calcium 8.2 mg/dL (8.4-10.2); Carbon Dioxide 28 mmol/L (22-30); Chloride 102 mmol/L (98-107); Estimated CRCL calculation 49 ml/min; Estimated Glomerular Filt Rate 58; Glucose 192 mg/dL (65-110); Sodium 133 mmol/L (137-145)
[2023-01-11 07:41] LABS: Glucose Point of Care 189 mg/dl (65-105)
[2023-01-11] MEDS: RIVASTIGMINE TARTRATE 1.5 MG CAPSULE 3 MG PO (08:25)
[2023-01-11] MEDS: CARBIDOPA/LEVODOPA 25/100 MG TABLET 1 TABLET PO ×2 (08:25→11:58)
[2023-01-11] MEDS: FAMOTIDINE 20 MG TABLET PO (08:26)
[2023-01-11] MEDS: TAMSULOSIN HCL 0.4 MG CAPSULE PO (08:26)
[2023-01-11 11:28] LABS: Glucose Point of Care 212 mg/dl (65-105)
[2023-01-11] MEDS: INSULIN ASPART (*BKC) 100 UNITS/ML SUB-Q (11:57)
[2023-01-11 13:51] VITALS: BP 153/76; PULSE 77; RESP 20; TEMP 36.3; O2SAT 96
--- NOTE | 2023-01-11 14:41 | PM.DS ---
DS: Admitting Diagnosis Discharge Date 01/11/2023 Admitting Diagnosis Altered mental status DS: Discharge Diagnosis Discharge Diagnosis (1) GI bleed: Code(s): K92.2 - Gastrointestinal hemorrhage, unspecified Status: Acute Assessment and Plan: Possible acute GI bleed Unclear source of bleeding The patient was given 2 units of blood. GI has been consulted. Check H&H every 6 hours. His H&H is 4.8 and 17.2. With previous levels of 9.5 and 29.4. The patient is currently NPO except for ice chips. work up has been negative order venofer HOLD xarelto on DC Hb staying at 7 PT dc on ferrous sulphate (2) CHF (congestive heart failure): Code(s): I50.9 - Heart failure, unspecified Status: Chronic Assessment and Plan: Patient has history of diastolic dysfunction Last echo was 03/20/2022 which was read as diastolic dysfunction with ejection fraction of 57%. Compensated (3) Diabetes mellitus with hyperglycemia: Code(s): E11.65 - Type 2 diabetes mellitus with hyperglycemia Status: Acute Assessment and Plan: Accu-Cheks every 6 hours with sliding scale insulin. (4) Acute hyponatremia: Code(s): E87.1 - Hypo-osmolality and hyponatremia Status: Acute Assessment and Plan: , hyponatremia is improving This may be related to his 3rd spacing and congestive heart failure. (5) HTN (hypertension): Code(s): I10 - Essential (primary) hypertension Status: Chronic Assessment and Plan: The patient was hypotensive POA on admission better now (6) BPH (benign prostatic hyperplasia): Code(s): N40.0 - Benign prostatic hyperplasia without lower urinary tract symptoms Status: Acute Assessment and Plan: Continue with home medications once they are verified. (7) Hyperlipidemia: Code(s): E78.5 - Hyperlipidemia, unspecified Status: Acute Assessment and Plan: Continue with home medications once they are verified. (8) Parkinson disease: Code(s): G20 - Parkinson's disease Status: Chronic Assessment and Plan: Continue with carbidopa levodopa. (9) A-fib: Code(s): I48.91 - Unspecified atrial fibrillation Status: Acute Assessment and Plan: His metoprolol will be on hold due to his hypotensive episode Xarelto is on hold due to his GI bleed. (10) Acute renal failure: Code(s): N17.9 - Acute kidney failure, unspecified Status: Acute Assessment and Plan: Because hypotension The patient was given a L fluid in the emergency room. BRITNEY resolved (11) Acute hypotension: Code(s): I95.9 - Hypotension, unspecified Status: Acute Assessment and Plan: Possible for hypovolemia due to profound anemia and dehydration Received blood transfusion DS: Summary Hospital Course Hospital Course: Pt admitted with GI bleed seen by GI pt will be having EGD and colonoscopy today Scopes are negative small bowel negative plan dc xarelto Small bowel follow through was negative Hb still staying low at 7.2after blood and fluids Pt having some itchy R eye Dc with artificial eyedrops Dc with iron tablets per GI note - No obvious bleeding noted.? Occult blood in? stool identified. ? GI series unremarkable.? Small-bowel follow-through today also normal.? Recommend keep patient on PPI therapy for a brief interval perhaps 2 months.? Avoid NSAIDs.? Probably best to hold anticoagulation for a few weeks if at all possible.? Okay with GI service to advance diet and discharge. Time Spent with Patient Time attestation: Total time spent providing and/or coordinating discharge services:50 minutes on day of DC Exam Narrative: GENERAL: Pleasant, in no acute distress. Well-nourished. - EYES: EOMI. Anicteric. - HENT: Moist mucous membranes. - LUNGS: Clear to auscultation bilaterally, no wheezing, rhonchi, or rales. - CARDIOVASCULAR: Regular rate and r
[2023-01-11 15:08] LABS: SARS-CoV-2 RNA PCR Negative (Negative)
== END 2023-01-11 14:45 | DRG 378 ==
LOC: ANHED 15:57 → ANHIMU 20:17 → ANHICU 01-07 03:17 → ANH3MEDSUR 01-07 11:03
PROVIDERS: Emergency Medicine; Hospitalist; Internal Medicine Gastroenterology; Nurse Practitioner; Admitting Provider Internal Medicine; Emergency Provider Emergency Medicine; Visit Provider Family Medicine
PROC: 0DJ08ZZ Inspection of Upper Intestinal Tract, Via Natural or Artificial Opening Endoscopic (ICD-10-PCS; CPT 43235; principal; 2023-01-09 14:30)
DX: K57.31 Diverticulosis of large intestine without perforation or abscess with bleeding (principal); D62 Acute posthemorrhagic anemia; E87.1 Hypo-osmolality and hyponatremia; I48.20 Chronic atrial fibrillation, unspecified; N17.9 Acute kidney failure, unspecified; I50.32 Chronic diastolic (congestive) heart failure; I11.0 Hypertensive heart disease with heart failure; I95.9 Hypotension, unspecified; K22.2 Esophageal obstruction; K44.9 Diaphragmatic hernia without obstruction or gangrene; K21.9 Gastro-esophageal reflux disease without esophagitis; E11.40 Type 2 diabetes mellitus with diabetic neuropathy, unspecified; E11.65 Type 2 diabetes mellitus with hyperglycemia; G20 Parkinson's disease; N40.0 Benign prostatic hyperplasia without lower urinary tract symptoms; M81.0 Age-related osteoporosis without current pathological fracture; Z20.822 Contact with and (suspected) exposure to COVID-19; Z79.01 Long term (current) use of anticoagulants; Z79.4 Long term (current) use of insulin
CPT/HCPCS: 36415; 36430; 70450; 74250; 80048; 80053; 81003; 82948; 83036; 83735; 83880; 84443; 85014; 85018; 85025; 85027; 85610; 85730; 86850; 86900; 86901; 86923; 87635; 93005; 96361; 96374; 96375; 96376; 97110; 97116; 97161; 97165; 97530; 97535; 99285; A9270; C9113; G0378; J1815; J1940; J2001; J2405; J2704; J7030; J7050; J7120; P9016

== ENCOUNTER 2023-04-22 19:03 | Observation (INO) | payer MEDICARE, SELFPAY ==
--- NOTE | ~2023-04-22 | MR_ITS ---
EXAMINATION: MR brain/brain stem wo/w con DATE: 04/23/2023 11:13 INDICATION: Stroke workup for left-sided facial weakness TECHNIQUE: Magnetic resonance imaging (MRI) of the brain and brainstem was performed without and with 18 mL Multihance intravenous contrast. Sequences included sagittal and axial T1-weighted SE, axial d iffusion-weighted FS SE, , axial T2-weighted FLAIR, and axial T2-weighted FSE. Postcontrast axial and coronal T1-weighted SE was obtained. Apparent diffusion coefficient (ADC) maps were created. COMPARISON: 04/22/2023 FINDINGS: There are no areas of restricted diffusion to suggest acute infarction. No intracranial hemorrhage or abnormal intracranial mass lesion. There are scattered areas of nonspecific increased T2-weighted si gnal intensity in the cerebral and pontine white matter, predominantly involving the deep and periven tricular white matter. There are no intraparenchymal signal abnormalities seen on the other pulse seq uences. Symmetric prominence of the sulci and ventricles consistent with mild to moderate age-appropr iate diffuse cerebral volume loss. There are no abnormal extra-axial fluid collections. Flow voids ar e seen in the cerebral arteries on the T2-weighted sequences consistent with their expected patency. Bilateral mastoid effusions. Visualized orbits and soft tissues are unremarkable. There are no areas of abnormal enhancement on the post contrast images. IMPRESSION: 1. No acute intracranial process. 2. Age-related changes including mild to moderate diffuse volume loss and moderate scattered nonspeci fic white matter T2 hyperintensity which is within normal limits for age and likely sequela of chroni c small vessel ischemic disease. Reviewed, dictated and finalized at location A. BILITATION CENTER MANAGER IMPRESSION: 1. No acute intracranial process. 2. Age-related changes including mild to moderate diffuse volume loss and moder ate scattered nonspecific white matter T2 hyperintensity which is within normal limits for age and likely sequela of chronic small vessel ischemic disease.
--- NOTE | ~2023-04-22 | CT_ITS ---
EXAMINATION: CT brain wo con DATE: 04/22/2023 19:16 INDICATION: Stroke. Facial droop. TECHNIQUE: Computed tomography (CT) of the head was performed without intravenous contrast. The dose- length product was 756.67 mGy-cm. Automated exposure control and iterative reconstruction technique w ere employed. COMPARISON: CT dated 01/06/2023 FINDINGS: Generalized atrophy. There are scattered mild periventricular and subcortical white matter changes, most likely related to small vessel ischemic disease (microangiopathy). Basilar cisterns are patent. There is intracranial atherosclerosis. No acute infarction, hemorrhage, mass or mass effect. Paranasal sinuses are pneumatized. Bilateral mastoid effusions. No depressed skull fractures. IMPRESSION: 1. No acute intracranial abnormality. No significant interval change. Dr. Negro Jain discussed with Dr. Roula Angelo MD at 04/22/2023 19:20 HYDRO TECHNICIAN. Reviewed, dictated and finalized at location A. O TECHNICIAN IMPRESSION: 1. No acute intracranial abnormality. No significant interval change. Dr. Negro Jain discussed with Dr. Roula Angelo MD at 04/22/2023 19:20 [place].
--- NOTE | ~2023-04-22 | CT_ITS ---
EXAMINATION: CTA brain DATE: 04/22/2023 21:35 PIPE FITTER SOFT COPPER INDICATION: Stroke TECHNIQUE: Computed tomographic angiography (CTA) of the head was performed with 100 mL Omnipaque-350 intravenous contrast. The dose-length product was 564.42 mGy-cm. Volume-rendered and maximum intensi ty projection 3D reconstructions of the intracranial arteries were created by the technologist on a [employer] workstation. COMPARISON: CT dated 04/22/2023. FINDINGS: There is atherosclerosis of the left vertebral artery which is dominant with moderate steno sis. There is intracranial atherosclerosis of the cavernous segment of the carotid artery bilaterally . There is moderate narrowing of the left carotid artery involving the cavernous segment. The anterio r, middle and posterior cerebral arteries are symmetric. No significant stenosis, occlusion or aneury sm. IMPRESSION: 1. 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 2: Dominant left vertebral artery with moderate narrowing secondary to atherosclerosis. 3: Mild stenosis of the right internal carotid artery cavernous segment. Reviewed, dictated and finalized at location A. FITTER SOFT COPPER IMPRESSION: 1. 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 2: Dominant left vertebral artery with moderate narrowing secondary to atherosc lerosis. 3: Mild stenosis of the right internal carotid artery cavernous segment.
--- NOTE | ~2023-04-22 | XR_ITS ---
XR chest 1V portable 04/22/2023 19:22 Indication: Stroke Procedure: AP portable chest Comparison: 04/24/2022 Findings: Moderate cardiomegaly. Chronic elevation the right diaphragm. No focal air space disease, p ulmonary edema, pleural effusion or suspected pneumothorax. Impression: 1: No acute cardiopulmonary disease. Reviewed, dictated and finalized at location A. N SALES CONSULTANT Impression: 1: No acute cardiopulmonary disease.
--- NOTE | 2023-04-22 19:09 | ECG_ITS ---
Measurements Intervals [place] Rate: 100 P: TN: 0 QRS: -11 QRSD: 99 T: 60 QT: 348 QTc: 450 Interpretive Statements ATYPICAL ATRIAL FLUTTER NONSPECIFIC ST & T-WAVE ABNORMALITY ABNORMAL RHYTHM ECG COMPARED TO ECG 01/06/2023 15:14:13 ATRIAL FLUTTER REPLACES SINUS RHYTHM Electronically Signed On 04-23-2023 15:00:30 OTM CONSULTANT by Ousmane Horton M.D.
[2023-04-22 19:15] VITALS: BP 138/71; PULSE 102; RESP 24; TEMP 36.6; O2SAT 97
[2023-04-22 19:30] VITALS: PULSE 115
[2023-04-22 19:32] VITALS: PULSE 106; RESP 24
[2023-04-22 19:45] VITALS: PULSE 107; RESP 22
[2023-04-22 19:46] VITALS: BP 131/78; PULSE 107; RESP 20
--- NOTE | 2023-04-22 19:47 | ED.NEUROSD ---
HPI - Neuro Symptoms/Deficit General Chief Complaint: Suspected CVA Stated Complaint: CODE CVA Time Seen by Provider: 04/22/23 19:09 Source: patient and family Mode of arrival: EMS History of Present Illness HPI Narrative: Patient presents via EMS. He recently underwent cardiac catheterization on Sunday. He arrived back to the facility and within 20 minutes staff were concerned about facial droop. Per EMS, he was alert and oriented to self, names of and others, date, but confused about location. He complains of right arm numbness. EMS found his LLE to be weak. For EMS, SBP was 110mmHg and he had a heart rate ranging between 92 and 104. Patient initially frustrated upon assessment, stating he isn't staying and minimally communicative in answering questions though does follow commands for NIHSS assessment. Do not resuscitate per [facility] documentation. Related Data Home Medications Medication Instructions Recorded Confirmed vitamin B complex (B 1 tablet PO DAILY 11/17/20 04/22/23 Complex-Vitamin B12 tablet) metoprolol tartrate 25 mg tablet 25 mg PO BID 07/27/21 04/23/23 calcium carbonate 600 mg calcium 600 mg PO DAILY 01/19/22 04/22/23 (1,500 mg) tablet ergocalciferol (vitamin D2) 1,250 1,250 mcg PO WEEKLY 01/19/22 04/23/23 mcg (50,000 unit) capsule (Vitamin D2) linagliptin 5 mg tablet 5 mg PO QAM 02/09/22 04/23/23 loperamide 2 mg capsule 2 mg PO Q8H PRN Diarrhea 02/09/22 04/22/23 acetaminophen 325 mg tablet 650 mg PO BID 01/06/23 04/23/23 acetaminophen 325 mg tablet 650 mg PO Q8H PRN Pain (Scale 01/06/23 04/22/23 Score 1-3) diphenhydramine HCl 25 mg capsule 25 mg PO Q8H PRN Itching 01/06/23 04/23/23 (Benadryl) insulin aspart U-100 100 unit/mL 5 unit subcut TIDWMEAL 01/06/23 04/23/23 (3 mL) subcutaneous pen (Novolog FlexPen U-100 Insulin aspart) insulin glargine 100 unit/mL 28 unit subcut HS 01/06/23 04/23/23 subcutaneous solution (Lantus U-100 Insulin) insulin syringe-needle U-100 01/06/23 04/23/23 potassium chloride 10 mEq 10 meq PO DAILY 01/06/23 04/23/23 tablet,extended release pravastatin 20 mg tablet 20 mg PO HS 01/06/23 04/23/23 glucosamine sulfate 500 mg tablet 500 mg PO BID 04/22/23 04/22/23 carbamide peroxide 6.5 % ear drops 5 drp EACH EAR DAILY 04/23/23 04/23/23 (Debrox) famotidine 20 mg tablet 20 mg PO BID 04/23/23 04/23/23 insulin aspart U-100 100 unit/mL See Protocol subcut TIDWMEAL 04/23/23 04/23/23 (3 mL) subcutaneous pen (Novolog FlexPen U-100 Insulin aspart) omeprazole 20 mg capsule,delayed 20 mg PO EVERY OTHER DAY 04/23/23 04/23/23 release Allergies Allergy/AdvReac Type Severity Reaction Status Date / Time No Known Allergies Allergy Verified 01/09/23 13:22 [facility] Past Medical History Medical History Aspergillus BPH (benign prostatic hyperplasia) Calcium deposit in bursa, left knee CHF (congestive heart failure) Diabetes Esophageal reflux disease Hernia History of atrial fibrillation History of CHF (congestive heart failure) History of diabetic neuropathy legs and feet History of hypertension History of osteoporosis History of Parkinson's disease HTN (hypertension) Surgical History Surgical History (Updated 01/06/23 @ 18:40 by Alanna Jacobs NP) H/O hernia repair History of appendectomy History of lobectomy of lung History of lung surgery (~1989) History of rotator cuff surgery both shoulders. One in the 80's and the other shoulder in the 90's S/P ablation of atrial fibrillation Family History Family History Mother Arthritis Heart disease Cerebrovascular accident Acute myocardial infarction Congestive heart failure Father Diabetes mellitus Sibling Asthma Social History Social History (Updated 01/06/23 @ 22:30 by Alanna Jacobs NP) Social History: The patient resides at [facility]. H
[2023-04-22 20:00] VITALS: PULSE 108; RESP 21
[2023-04-22 20:44] LABS: Basophils Percent Auto 0.2 % (0.2-1.2); Eosinophils Absolute Auto 0.1 K/mm3 (0-0.3); Hematocrit 31.8 % (42.0-52.0); Hemoglobin 10.5 g/dL (14.0-18.0); Immature Granulocyte Absolute 0.04 K/mm3 (0.00-0.031); Immature Granulocyte Percent A 0.4 % (0-0.5); Lymphocytes Absolute Auto 1.57 K/mm3 (0.9-3.2); Lymphocytes Percent Auto 15.1 % (18.3-44.2); Mean Corpuscular Hemoglobin 30.3 pg (26-34); Mean Corpuscular Volume 91.9 fl (80-100); Mean Platelet Volume 10.3 fl (7.4-10.4); Monocytes Absolute Auto 1.1 K/mm3 (0.1-0.6); Monocytes Percent Auto 10.5 % (2.6-8.5); Neutrophils Absolute Auto 7.6 K/mm3 (1.3-6.7); Neutrophils Percent Auto 72.8 % (45.5-73.1); Platelet Count Result 157 k/mm3 (150-375); Red Blood Count 3.46 M/mm3 (4.6-6.20); Red Cell Distribution Width 17.2 % (11.5-14.5); White Blood Count 10.4 K/mm3 (4.5-10.0)
[2023-04-22 20:56] LABS: Alanine Aminotransferase 9 U/L (6-50); Albumin Level 3.4 g/dL (3.5-5.1); Alkaline Phosphatase 60 U/L (38-126); Anion Gap 10 mmol/L (8-16); Aspartate Amino Transferase 19 U/L (17-59); Bilirubin,Total 0.7 mg/dL (0.2-1.3); Blood Urea Nitrogen 15 mg/dL (9-20); Calcium 8.5 mg/dL (8.4-10.2); Carbon Dioxide 21 mmol/L (22-30); Chloride 103 mmol/L (98-107); Estimated CRCL calculation 52 ml/min; Estimated Glomerular Filt Rate > 60; Glucose 184 mg/dL (65-110); Potassium 3.9 mmol/L (3.4-5.0); Sodium 134 mmol/L (137-145)
[2023-04-22 21:13] LABS: Troponin I 0.139 ng/mL (0.000-0.034)
[2023-04-22] MEDS: ASPIRIN 81 MG CHEWABLE TABLET 324 MG PO (22:29)
--- NOTE | 2023-04-22 22:31 | PC.NURSE ---
Karthik, son of pt would like to be notified of changes. Number is [phone].
[2023-04-22] MEDS: LACTATED RINGERS 1,000 ML 100 ML IV CONT (22:38)
--- NOTE | 2023-04-22 23:25 | PC.NURSE ---
Karthik, son of pt notified of bed assignment at [id number].
--- NOTE | 2023-04-22 23:56 | PC.NURSE ---
This patient, Duran Jansen, was admitted to IMU Room 203-01@ 2340 Patient/family oriented to hospital policies and general routines including ID bracelet, bed and alarms, visiting hours, pain management, procedures, bathroom and other care routines, personal items, smoking policy, room service/diet, and visiting hours. Information on how to activate the Rapid Response Team has been discussed. Patient/Family are encouraged to report perceived risks to care and to ask questions if they do not understand what they are told or what they should do.
[2023-04-23] VITALS (15 sets, daily range): BP systolic 118–155; BP diastolic 66–89; PULSE 94–132; RESP 18–22; TEMP 35.7–36.6; O2SAT 96–98; BMI 29.9
[2023-04-23 00:49] LABS: Troponin I 0.142 ng/mL (0.000-0.034)
[2023-04-23 04:43] LABS: Troponin I 0.118 ng/mL (0.000-0.034)
--- NOTE | 2023-04-23 06:00 | ECG_ITS ---
Measurements Intervals [place] Rate: 95 P: [place]: 0 QRS: -13 QRSD: 98 T: 24 QT: 382 QTc: 481 Interpretive Statements ATRIAL FLUTTER/TACHYCARDIA NONSPECIFIC ST AND T-WAVE ABNORMALITY ABNORMAL ECG COMPARED TO ECG 04/22/2023 19:25:31 VENTRICULAR RESPONSE TO ATRIAL FLUTTER IS REDUCED Electronically Signed On 04-23-2023 15:11:10 HEAT TREAT SUPERVISOR by Ousmane Horton M.D.
[2023-04-23] MEDS: CLOPIDOGREL BISULFATE 75 MG TABLET PO (09:00)
--- NOTE | 2023-04-23 10:27 | WPDNEUROPN ---
Subjective Date/time seen: 04/23/23 10:27 Objective Data Vital Signs Vital Signs: Vital Signs - 24 hr 04/22/23 19:15 04/22/23 19:30 04/22/23 19:32 Temperature 36.6 C Pulse Rate 102 H 115 H 106 H Respiratory Rate 24 H 24 H Blood Pressure 138/71 Pulse Oximetry 97 Oxygen Delivery Room Air 04/22/23 19:45 04/22/23 19:46 04/22/23 20:00 Temperature Pulse Rate 107 H 107 H 108 H Respiratory Rate 22 H 20 21 H Blood Pressure 131/78 Pulse Oximetry Oxygen Delivery 04/23/23 00:09 04/23/23 00:00 04/23/23 02:00 Temperature 36.6 C Pulse Rate 107 H 102 H 94 Respiratory Rate 18 Blood Pressure 121/74 Pulse Oximetry 96 Oxygen Delivery 04/23/23 04:26 04/23/23 04:00 04/23/23 06:00 Temperature 36.2 C L Pulse Rate 94 115 H 99 Respiratory Rate 18 Blood Pressure 155/73 H Pulse Oximetry 96 Oxygen Delivery 04/23/23 07:36 Temperature 36.2 C L Pulse Rate 95 Respiratory Rate 22 H Blood Pressure 120/68 Pulse Oximetry 96 Oxygen Delivery Meds/Results Medications: Active Medications Generic Name Dose Route Start Last Admin Trade Name Freq PRN Reason Stop Dose Admin Acetaminophen 650 mg 04/22/23 22:24 Acetaminophen 325 Mg Tablet PO Q4H PRN Mild Pain (1-3) or Fever Clopidogrel Bisulfate 75 mg 04/23/23 09:00 04/23/23 09:00 Clopidogrel Bisulfate 75 Mg Tablet PO 75 mg QAM ALEX Administration Lactated Ringer's 1,000 mls @ 100 mls/hr 04/22/23 22:25 04/22/23 22:38 Lr - Lactated Ringers Iv IV CONT 100 mls/hr .Q10H ALEX Administration Ondansetron HCl 4 mg 04/22/23 22:24 Ondansetron Inj 4 Mg/2 Ml Vial IV PUSH Q4H PRN Nausea Radiology Results: ITS Impressions Head CT 04/22/23 19:17 IMPRESSION: 1. No acute intracranial abnormality. No significant interval change. Dr. Negro Jain discussed with Dr. Roula Angelo MD at 04/22/2023 19:20 HAND COKE DRAWER. Chest X-Ray 04/22/23 19:27 Impression: 1: No acute cardiopulmonary disease. CT Brain Angiography 04/22/23 21:35 IMPRESSION: 1. 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 2: Dominant left vertebral artery with moderate narrowing secondary to atherosclerosis. 3: Mild stenosis of the right internal carotid artery cavernous segment. Labs Labs: Laboratory Results - last 24 hr 04/22/23 04/22/23 04/23/23 20:39 23:56 03:38 WBC 10.4 H RBC 3.46 L Hgb 10.5 L Hct 31.8 L MCV 91.9 MCH 30.3 MCHC 33.0 RDW 17.2 H Plt Count 157 MPV 10.3 Immature Gran % (Auto) 0.4 Neut % (Auto) 72.8 Lymph % (Auto) 15.1 L [place] % (Auto) 10.5 H Eos % (Auto) 1.0 Baso % (Auto) 0.2 Lymph # (Auto) 1.57 [place] # (Auto) 1.1 H Eos # (Auto) 0.1 Baso # (Auto) 0.0 Abs Immat Gran (auto) 0.04 H Absolute Neuts (auto) 7.6 H Absolute Nucleated RBC 0.0 Nucleated RBC % 0.0 Sodium 134 L Potassium 3.9 Chloride 103 Carbon Dioxide 21 L Anion Gap 10 BUN 15 Creatinine 1.10 Estim Creat Clear Calc 52 Estimated GFR > 60 Glucose 184 H Calcium 8.5 Total Bilirubin 0.7 AST 19 ALT 9 Alkaline Phosphatase 60 Troponin I 0.139 H* 0.142 H* 0.118 H* Total Protein 7.0 Albumin 3.4 L
--- NOTE | 2023-04-23 11:29 | PCPTNOTE ---
Waiting on complete workup/test results prior to PT evaluation.
--- NOTE | 2023-04-23 13:46 | PM.CNCAR ---
Assessment and Plan Assessment and plan (1) Elevated troponin: Code(s): R79.89 - Other specified abnormal findings of blood chemistry Status: Acute Assessment and Plan: Troponin levels are 0.139, 0.142, and 0.118. This trend is not consistent with ACS. He denies chest pain. No further cardiac workup recommended in this regard. (2) A-fib: Code(s): I48.91 - Unspecified atrial fibrillation Status: Acute Assessment and Plan: Rate controlled on amiodarone. Continue amiodarone 40mg b.i.d. Ruled out for stroke with negative CT angio of the head and brain MRI. Recent LAAO device placement. Continue other home cardiac medications including plavix, furosemide, losartan, and metoprolol. Plan Cardiology will sign off please call with questions History of Present Illness History of Present Illness Consult date/time: 04/23/23 13:46 Requesting physician: Vikash Del Angel MD Consult reason: Other (elevated troponin) Reason For Visit: stroke work-up; elevated troponin Narrative: Duran Jansen is an 82 year old male with atrial fibrillation and Parkinson's disease. He underwent left atrial appendage occlusion device placement on 04/20/23 at [facility] by Dr. Riggs because of frequent falls and inability to be anticoagulated. He had atrial fibrillation with rapid ventricular response during the procedure and was placed on amiodarone and did have rate control with this. He is on oral amiodarone at this time and maintaining adequate rate control. He returned to the hospital because of concern of stroke - he was noted by [facility] staff to have left facial paralysis and left sided weakness. Cardiology is being asked to see him now because of elevated troponin levels. Patient denies any chest pain. He states he doesn't know why he is here but everyone else knows why he is here. At the time of my encounter with him he is lying comfortably in bed and his only complaint is being hungry. Review of Systems Review of Systems: ROS unobtainable: Yes unobtainable due to mental status PMFSH Past Medical History Medical History Aspergillus BPH (benign prostatic hyperplasia) Calcium deposit in bursa, left knee CHF (congestive heart failure) Diabetes Esophageal reflux disease Hernia History of atrial fibrillation History of CHF (congestive heart failure) History of diabetic neuropathy legs and feet History of hypertension History of osteoporosis History of Parkinson's disease HTN (hypertension) Surgical History Surgical History (Updated 01/06/23 @ 18:40 by Alanna Jacobs NP) H/O hernia repair History of appendectomy History of lobectomy of lung History of lung surgery (~1989) History of rotator cuff surgery both shoulders. One in the 80's and the other shoulder in the 90's S/P ablation of atrial fibrillation Family History Family History Mother Arthritis Heart disease Cerebrovascular accident Acute myocardial infarction Congestive heart failure Father Diabetes mellitus Sibling Asthma Social History Social History (Updated 01/06/23 @ 22:30 by Alanna Jacobs NP) Social History: The patient resides at [facility]. His is the durable power ip technology transactions attorney for healthcare. They have 4 children. 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 He denies any alcohol drugs or marijuana. Code status Dnr Years smoked: 30 Smoking status: Never smoker Tobacco type: pipe and cigars Second hand tobacco smoke exposure: No Alcohol intake: never Alcohol use details: quit in 1989 Substance use: never Substance use type: does not use Last use: no drink since 1999 Lack of Transportation: No Lack of Food: Never True Current Housing: I Have Housing Concerned About Future Housing: No Difficulty Paying Gas/Electric Bill
--- NOTE | 2023-04-23 15:29 | PM.IMHP ---
H&P: HPI History of Present Illness Date/Time: 04/23/23 15:29 Chief Complaint: Altered mental status Narrative: Patient comes from nursing facility with altered mental status. He was just discharged from another [facility] after a was admitted for AFib with RVR. Patient is confusion self and not able to provide any further history. Most of the history is obtained from the medical record. He was at the other hospital for left atrial appendage procedure following which he had to be admitted for AFib with RVR and hypotension. He was subsequently discharged at 6:00 p.m. yesterday but had to come to the ER due to facial droop being weakness that was noticed by the nursing staff in the nursing facility. Review of Systems Review of Systems: - CONSTITUTIONAL: Denies weight loss, fever and chills. - HEENT: Denies changes in vision and hearing - RESPIRATORY: Denies SOB and cough. - CV: Denies palpitations and CP. - GI: Denies abdominal pain, nausea, vomiting and diarrhea. - : Denies dysuria and urinary frequency. - MSK: Denies myalgia and joint pain. - SKIN: Denies rash and pruritus. - NEUROLOGICAL: See HPI - PSYCHIATRIC: Denies recent changes in mood. Denies anxiety and depression. [facility] Past Medical History Medical History Aspergillus BPH (benign prostatic hyperplasia) Calcium deposit in bursa, left knee CHF (congestive heart failure) Diabetes Esophageal reflux disease Hernia History of atrial fibrillation History of CHF (congestive heart failure) History of diabetic neuropathy legs and feet History of hypertension History of osteoporosis History of Parkinson's disease HTN (hypertension) Surgical History Surgical History (Updated 01/06/23 @ 18:40 by Alanna Jacobs NP) H/O hernia repair History of appendectomy History of lobectomy of lung History of lung surgery (~1989) History of rotator cuff surgery both shoulders. One in the 80's and the other shoulder in the 's S/P ablation of atrial fibrillation Family History Family History Mother Arthritis Heart disease Cerebrovascular accident Acute myocardial infarction Congestive heart failure Father Diabetes mellitus Sibling Asthma Social History Social History (Updated 01/06/23 @ 22:30 by Alanna Jacobs NP) Social History: The patient resides at [facility]. His is the durable power civil rights attorney for healthcare. They have 4 children. 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 He denies any alcohol drugs or marijuana. Code status Dnr Years smoked: 30 Smoking status: Never smoker Tobacco type: pipe and cigars Second hand tobacco smoke exposure: No Alcohol intake: never Alcohol use details: quit in 1989 Substance use: never Substance use type: does not use Last use: no drink since 1999 Lack of Transportation: No Lack of Food: Never True Current Housing: I Have Housing Concerned About Future Housing: No Difficulty Paying Gas/Electric Bills: No Difficulty Paying for Meds: No Currently Unemployed: No Education: High School Diploma/GED Difficulty w/ Childcare or Family Care: No Spiritual care concerns: No Meds Home Medications and Allergies Home Medications Medication Instructions Recorded Confirmed Type vitamin B complex (B 1 tablet PO DAILY 11/17/20 04/22/23 History Complex-Vitamin B12 tablet) lancets (OneTouch UltraSoft #200 ea 05/10/21 04/23/23 Rx Lancets) furosemide 40 mg tablet (Lasix) 40 mg PO QAM #90 tabs 07/25/21 04/22/23 Rx losartan 100 mg tablet 100 mg PO DAILY #90 tabs 07/27/21 04/23/23 Rx metformin 1,000 mg tablet 1,000 mg PO BID #180 tabs 07/27/21 04/23/23 Rx metoprolol tartrate 25 mg tablet 25 mg PO BID 07/27/21 04/23/23 History pen needle, diabetic 31 gauge x #100 ea 11/21/21 04/23/23 Rx 5/16 (Comfort
[2023-04-23 17:21] LABS: Glucose Point of Care 272 mg/dl (65-105)
[2023-04-23] MEDS: CARBIDOPA/LEVODOPA 25/100 MG TABLET 1 TABLET PO ×2 (17:30→20:28)
[2023-04-23] MEDS: ACETAMINOPHEN 325 MG TABLET 650 MG PO (17:30)
[2023-04-23] MEDS: metFORMIN HCL 500 MG TABLET 1000 MG PO (17:30)
[2023-04-23] MEDS: FAMOTIDINE 20 MG TABLET PO (17:30)
[2023-04-23] MEDS: AMIODARONE HCL 200 MG TABLET 400 MG PO (17:31)
[2023-04-23] MEDS: METOPROLOL TARTRATE 25 MG TABLET PO (17:31)
[2023-04-23] MEDS: INSULIN ASPART (*BKC) 100 UNITS/ML SUB-Q ×2 (17:34→17:35)
[2023-04-23] MEDS: PANTOPRAZOLE 40 MG TABLET PO (17:42)
[2023-04-23] MEDS: RIVASTIGMINE TARTRATE 1.5 MG CAPSULE 3 MG PO (17:42)
[2023-04-23] MEDS: PRAVASTATIN SODIUM 20 MG TABLET PO (20:28)
[2023-04-23 21:19] LABS: Glucose Point of Care 182 mg/dl (65-105)
[2023-04-23] MEDS: INSULIN GLARGINE (*BKC) 100 UNITS/ML 28 UNITS SUB-Q (22:36)
[2023-04-24] VITALS (16 sets, daily range): BP systolic 99–124; BP diastolic 48–87; PULSE 77–117; RESP 18–22; TEMP 35.7–36.5; O2SAT 95–100
[2023-04-24 05:29] LABS: Basophils Percent Auto 0.3 % (0.2-1.2); Eosinophils Absolute Auto 0.3 K/mm3 (0-0.3); Eosinophils Percent Auto 3.2 % (0-4.4); Hematocrit 32.3 % (42.0-52.0); Hemoglobin 10.4 g/dL (14.0-18.0); Immature Granulocyte Absolute 0.03 K/mm3 (0.00-0.031); Immature Granulocyte Percent A 0.3 % (0-0.5); Lymphocytes Absolute Auto 1.61 K/mm3 (0.9-3.2); Lymphocytes Percent Auto 18.3 % (18.3-44.2); Mean Corpuscular HGB Conc 32.2 g/dl (32-36); Mean Corpuscular Hemoglobin 30.5 pg (26-34); Mean Corpuscular Volume 94.7 fl (80-100); Mean Platelet Volume 10.9 fl (7.4-10.4); Monocytes Percent Auto 11.5 % (2.6-8.5); Neutrophils Absolute Auto 5.8 K/mm3 (1.3-6.7); Neutrophils Percent Auto 66.4 % (45.5-73.1); Platelet Count Result 173 k/mm3 (150-375); Red Blood Count 3.41 M/mm3 (4.6-6.20); Red Cell Distribution Width 16.7 % (11.5-14.5); White Blood Count 8.8 K/mm3 (4.5-10.0)
[2023-04-24 05:40] LABS: Alanine Aminotransferase 6 U/L (6-50); Albumin Level 3.2 g/dL (3.5-5.1); Alkaline Phosphatase 53 U/L (38-126); Anion Gap 8 mmol/L (8-16); Aspartate Amino Transferase 18 U/L (17-59); Bilirubin,Total 0.8 mg/dL (0.2-1.3); Blood Urea Nitrogen 13 mg/dL (9-20); Calcium 8.4 mg/dL (8.4-10.2); Carbon Dioxide 21 mmol/L (22-30); Chloride 105 mmol/L (98-107); Estimated CRCL calculation 52 ml/min; Estimated Glomerular Filt Rate > 60; Glucose 131 mg/dL (65-110); Magnesium 1.8 mg/dL (1.6-2.3); Potassium 3.6 mmol/L (3.4-5.0); Sodium 134 mmol/L (137-145)
[2023-04-24 06:18] LABS: Appearance Urine Cloudy (Clear); Bacteria Urine None Seen /hpf; Bilirubin Urine Negative (Negative); Blood Urine Negative (Negative); Color Urine Yellow (Yellow); Glucose Urine UA 2+ mg/dL (Negative); Ketones Urine Trace mg/dL (Negative); Leukocyte Esterase Ur Negative LEU/UL (Negative); Nitrate Urine Negative (Negative); Non Pathogenic Casts 0-2; Protein Urine 1+ mg/dL (Negative); RBC Urine 0-2 /hpf (0-2); Squamous Epithelial Cell Urine None seen /hpf (Few); WBC Urine 0-5 /hpf; pH Urine 5.5 (5.0-9.0)
[2023-04-24 07:23] LABS: Add Urine Microscopic? YES; Specific Grav Ur 1.038 (1.001-1.035)
[2023-04-24] MEDS: VITAMIN B COMPLEX CAPSULE 1 CAP PO (08:20)
[2023-04-24] MEDS: metFORMIN HCL 500 MG TABLET 1000 MG PO ×2 (08:20→16:50)
[2023-04-24] MEDS: ACETAMINOPHEN 325 MG TABLET 650 MG PO ×2 (08:20→16:50)
[2023-04-24] MEDS: FAMOTIDINE 20 MG TABLET PO ×2 (08:20→16:49)
[2023-04-24] MEDS: CLOPIDOGREL BISULFATE 75 MG TABLET PO (08:20)
[2023-04-24] MEDS: TAMSULOSIN HCL 0.4 MG CAPSULE PO (08:20)
[2023-04-24] MEDS: FUROSEMIDE 40 MG TABLET PO (08:20)
[2023-04-24] MEDS: CALCIUM CARBONATE (OSCAL) 500 MG TABLET PO (08:21)
[2023-04-24] MEDS: RIVASTIGMINE TARTRATE 1.5 MG CAPSULE 3 MG PO ×2 (08:21→16:49)
[2023-04-24] MEDS: METOPROLOL TARTRATE 25 MG TABLET PO ×2 (08:21→16:49)
[2023-04-24] MEDS: LOSARTAN POTASSIUM 100 MG TABLET PO (08:21)
[2023-04-24] MEDS: POTASSIUM CHLORIDE 10 MEQ ER TABLET PO (08:21)
[2023-04-24] MEDS: CARBIDOPA/LEVODOPA 25/100 MG TABLET 1 TABLET PO ×4 (08:21→20:37)
[2023-04-24] MEDS: FERROUS SULFATE 325 MG TABLET DR PO (08:21)
[2023-04-24] MEDS: CARBAMIDE PEROXIDE 6.5% OT SOLN 15 ML BTL 5 DROP EACH EAR (08:22)
[2023-04-24] MEDS: INSULIN ASPART (*BKC) 100 UNITS/ML SUB-Q ×3 (08:23→16:50)
[2023-04-24] MEDS: AMIODARONE HCL 200 MG TABLET 400 MG PO ×2 (08:26→16:49)
[2023-04-24] MEDS: ENOXAPARIN 40 MG/0.4 ML SYRINGE SUB-Q (08:30)
[2023-04-24 08:35] LABS: Glucose Point of Care 128 mg/dl (65-105)
[2023-04-24 11:24] LABS: Glucose Point of Care 144 mg/dl (65-105)
--- NOTE | 2023-04-24 14:27 | PM.IMPN ---
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 He was recently discharged from another hospital after left atrial appendage ligation procedure that was done on 04/20/2023. Subsequently he had atrial fibrillation and hypotension and was admitted for further treatment. Discharge on 04/22/2023. Workup in the ER revealed mild AFib with RVR normotensive mild leukocytosis at 10.4 chronic mild anemia. Troponin was elevated 0.139. CT head was negative. Chest x-ray was negative. CT brain angiogram showed moderate stenosis of the left internal carotid as artery dominant left vertebral artery with moderate narrowing secondary to atherosclerosis. Mild stenosis of the right internal carotid artery cavernous segment. Brain MRI was ordered subsequently which has been done 04/23/23 which revealed no acute intracranial process. There are age-related changes including mild to moderate diffuse volume loss and moderate scattered nonspecific white matter T2 hyperintensity which is within normal limits for 80s and likely cecal of chronic small vessel ischemic disease. Serial troponin 0.139-0.14 2-0.118. Cardiology consultation. No active chest pain. Elevated troponin likely due to recent cardiac procedure. Will continue home medication. SSI and Lantus for diabetes. Has underlying dementia on rivastigmine. AFib not on anticoagulation however status post left atrial appendage ligation. UA is negative for infection. PT OT evaluated. Plan to DC back to nursing facility for continued rehabilitation DVT prophylaxis will place on Lovenox Subjective Date/time seen: 04/24/23 14:27 Interval history: No overnight events. Remains confused denies any new complaints no chest pain or shortness of breath Review of Systems Review of Systems: All systems reviewed & are unremarkable except as noted in HPI and below Exam Narrative: GENERAL: Well-appearing, well-nourished, and in no acute distress. HEAD: Normocephalic, atraumatic. EYES: PERRLA and EOMI. ENT: Nares clear, no rhinorrhea or epistaxis.? Mucous membranes moist. NECK: Supple. CHEST: Clear to auscultation.? No respiratory distress. HEART: AFib rhythm mildly tachycardic.? No murmur heard.? Normal peripheral pulses. ABDOMEN: Soft, nontender, nondistended, normal active bowel sounds. EXTREMITIES: Normal range of motion.? No edema. SKIN: Warm, dry, no rash. NEURO: No focal deficits.? Alert and conversant confused PSYCH: Normal mood and affect. Objective Data Vital Signs Vital Signs: Vital Signs - 24 hr 04/23/23 17:28 04/23/23 17:31 04/23/23 17:31 Temperature 96.6 F L Pulse Rate 132 H 132 H 132 H Respiratory Rate 22 H Blood Pressure 133/78 Pulse Oximetry 97 Oxygen Delivery 04/23/23 16:00 04/23/23 20:00 04/23/23 21:12 Temperature 97.9 F Pulse Rate 124 H 107 H Respiratory Rate 22 H Blood Pressure 118/89 Pulse Oximetry 97 Oxygen Delivery Room Air 04/23/23 20:00 04/24/23 01:17 04/24/23 00:00 Temperature 97.5 F L Pulse Rate 115 H 114 H 111 H Respiratory Rate 22 H Blood Pressure 113/87 Pulse Oximetry 98 Oxygen Delivery 04/24/23 04:00 04/24/23 05:21 04/24/23 07:20 Temperature 97.7 F 97.0 F L Pulse Rate 98 97 77 Respiratory Rate 22 H 18 Blood Pressure 124/61 107/48 L Pulse Oximetry 95 96 Oxygen Del
--- NOTE | 2023-04-24 14:30 | PCOTNOTE ---
Attempted to see Patient this afternoon. Patient sitting up in the recliner, stated he had already done therapy today, was comfortable where he was and not doing anything else today, he is waiting for his to arrive.
[2023-04-24 17:06] LABS: Glucose Point of Care 159 mg/dl (65-105)
[2023-04-24 20:35] LABS: Glucose Point of Care 156 mg/dl (65-105)
[2023-04-24] MEDS: PRAVASTATIN SODIUM 20 MG TABLET PO (20:36)
[2023-04-24] MEDS: INSULIN GLARGINE (*BKC) 100 UNITS/ML 28 UNITS SUB-Q (20:37)
[2023-04-25] VITALS (9 sets, daily range): BP systolic 113–121; BP diastolic 67–76; PULSE 93–116; RESP 20–22; TEMP 35.7–36.5; O2SAT 95–96
[2023-04-25 05:13] LABS: Basophils Percent Auto 0.4 % (0.2-1.2); Eosinophils Absolute Auto 0.3 K/mm3 (0-0.3); Eosinophils Percent Auto 3.6 % (0-4.4); Hematocrit 29.5 % (42.0-52.0); Hemoglobin 9.8 g/dL (14.0-18.0); Immature Granulocyte Absolute 0.03 K/mm3 (0.00-0.031); Immature Granulocyte Percent A 0.4 % (0-0.5); Lymphocytes Absolute Auto 1.99 K/mm3 (0.9-3.2); Lymphocytes Percent Auto 25.6 % (18.3-44.2); Mean Corpuscular HGB Conc 33.2 g/dl (32-36); Mean Corpuscular Hemoglobin 30.9 pg (26-34); Mean Corpuscular Volume 93.1 fl (80-100); Mean Platelet Volume 10.7 fl (7.4-10.4); Monocytes Absolute Auto 0.8 K/mm3 (0.1-0.6); Monocytes Percent Auto 10.2 % (2.6-8.5); Neutrophils Absolute Auto 4.7 K/mm3 (1.3-6.7); Neutrophils Percent Auto 59.8 % (45.5-73.1); Platelet Count Result 200 k/mm3 (150-375); Red Blood Count 3.17 M/mm3 (4.6-6.20); Red Cell Distribution Width 16.4 % (11.5-14.5); White Blood Count 7.8 K/mm3 (4.5-10.0)
[2023-04-25 05:24] LABS: Alanine Aminotransferase 7 U/L (6-50); Albumin Level 3.1 g/dL (3.5-5.1); Alkaline Phosphatase 70 U/L (38-126); Anion Gap 7 mmol/L (8-16); Aspartate Amino Transferase 19 U/L (17-59); Bilirubin,Total 0.6 mg/dL (0.2-1.3); Blood Urea Nitrogen 19 mg/dL (9-20); Calcium 8.5 mg/dL (8.4-10.2); Carbon Dioxide 24 mmol/L (22-30); Chloride 104 mmol/L (98-107); Estimated CRCL calculation 38 ml/min; Estimated Glomerular Filt Rate 45; Glucose 154 mg/dL (65-110); Magnesium 1.6 mg/dL (1.6-2.3); Potassium 3.8 mmol/L (3.4-5.0); Sodium 135 mmol/L (137-145)
[2023-04-25 07:49] LABS: Glucose Point of Care 146 mg/dl (65-105)
[2023-04-25] MEDS: MAGNESIUM SULF 1 GM/D5W 100 ML 1 GM/100 ML BAG IVPB (09:17)
[2023-04-25] MEDS: INSULIN ASPART (*BKC) 100 UNITS/ML SUB-Q ×2 (09:18→12:16)
[2023-04-25] MEDS: RIVASTIGMINE TARTRATE 1.5 MG CAPSULE 3 MG PO (09:20)
[2023-04-25] MEDS: CALCIUM CARBONATE (OSCAL) 500 MG TABLET PO (09:20)
[2023-04-25] MEDS: FAMOTIDINE 20 MG TABLET PO (09:20)
[2023-04-25] MEDS: metFORMIN HCL 500 MG TABLET 1000 MG PO (09:21)
[2023-04-25] MEDS: LOSARTAN POTASSIUM 100 MG TABLET PO (09:22)
[2023-04-25] MEDS: FERROUS SULFATE 325 MG TABLET DR PO (09:22)
[2023-04-25] MEDS: CLOPIDOGREL BISULFATE 75 MG TABLET PO (09:23)
[2023-04-25] MEDS: PANTOPRAZOLE 40 MG TABLET PO (09:23)
[2023-04-25] MEDS: POTASSIUM CHLORIDE 10 MEQ ER TABLET PO (09:23)
[2023-04-25] MEDS: TAMSULOSIN HCL 0.4 MG CAPSULE PO (09:24)
[2023-04-25] MEDS: METOPROLOL TARTRATE 25 MG TABLET PO (09:24)
[2023-04-25] MEDS: CARBIDOPA/LEVODOPA 25/100 MG TABLET 1 TABLET PO ×2 (09:25→12:17)
[2023-04-25] MEDS: FUROSEMIDE 40 MG TABLET PO (09:25)
[2023-04-25] MEDS: VITAMIN B COMPLEX CAPSULE 1 CAP PO (09:25)
[2023-04-25] MEDS: ACETAMINOPHEN 325 MG TABLET 650 MG PO (09:26)
[2023-04-25] MEDS: CARBAMIDE PEROXIDE 6.5% OT SOLN 15 ML BTL 5 DROP EACH EAR (09:27)
[2023-04-25] MEDS: ENOXAPARIN 40 MG/0.4 ML SYRINGE SUB-Q (09:28)
[2023-04-25] MEDS: AMIODARONE HCL 200 MG TABLET 400 MG PO (09:30)
--- NOTE | 2023-04-25 12:03 | PM.DS ---
DS: Admitting Diagnosis Discharge Date 04/25/23 Admitting Diagnosis TIA DS: Discharge Diagnosis Discharge Diagnosis (1) TIA involving carotid artery: Code(s): G45.1 - Carotid artery syndrome (hemispheric) Status: Acute (2) Elevated troponin: Code(s): R79.89 - Other specified abnormal findings of blood chemistry Status: Acute DS: Summary Hospital Course Hospital Course: 82 year old male Admitted to the hospital through the emergency room where he was brought by the EMS with the information that he recently underwent cardiac catheterization on Sunday and when he arrived back to the facility within 20minutes.? Was concerned about his facial droop on arrival of EMS.?CT scan of the head was negative for the bleed, CTA documented moderate stenosis of left internal carotid artery cavernous segment? an MRI of the brain documented no acute process only age-related changes including mild to moderate diffuse volume loss. Cardiology and Neurology were consulted. No recommendations as per Cardiology. Discharge back [facility] in [facility] condition Status at Discharge Overall status at discharge: patient is progressing back to baseline Time Spent with Patient Time attestation: Total time spent providing and/or coordinating discharge services: Time spent: Greater than 30 minutes Exam Narrative: GENERAL: Well-appearing, well-nourished, and in no acute distress. HEAD: Normocephalic, atraumatic. EYES: PERRLA and EOMI. ENT: Nares clear, no rhinorrhea or epistaxis.? Mucous membranes moist. NECK: Supple. CHEST: Clear to auscultation.? No respiratory distress. HEART: AFib rhythm mildly tachycardic.? No murmur heard.? Normal peripheral pulses. ABDOMEN: Soft, nontender, nondistended, normal active bowel sounds. EXTREMITIES: Normal range of motion.? No edema. SKIN: Warm, dry, no rash. NEURO: No focal deficits.? Alert and conversant confused PSYCH: Normal mood and affect. DS: Data Data Completed and Pending Labs on day of discharge: Labs from last 24 hours 04/25/23 04/25/23 04/24/23 07:27 04:34 20:30 WBC 7.8 RBC 3.17 L Hgb 9.8 L Hct 29.5 L MCV 93.1 MCH 30.9 MCHC 33.2 RDW 16.4 H Plt Count 200 MPV 10.7 H Immature Gran % (Auto) 0.4 Neut % (Auto) 59.8 Lymph % (Auto) 25.6 Turner % (Auto) 10.2 H Eos % (Auto) 3.6 Baso % (Auto) 0.4 Lymph # (Auto) 1.99 Turner # (Auto) 0.8 H Eos # (Auto) 0.3 Baso # (Auto) 0.0 Abs Immat Gran (auto) 0.03 Absolute Neuts (auto) 4.7 Absolute Nucleated RBC 0.0 Nucleated RBC % 0.0 Sodium 135 L Potassium 3.8 Chloride 104 Carbon Dioxide 24 Anion Gap 7 L BUN 19 Creatinine 1.50 H Estim Creat Clear Calc 38 Estimated GFR 45 L Glucose 154 H POC Capillary Glucose 146 H 156 H Calcium 8.5 Magnesium 1.6 Total Bilirubin 0.6 AST 19 ALT 7 Alkaline Phosphatase 70 Total Protein 6.0 L Albumin 3.1 L 04/24/23 16:08 WBC RBC Hgb Hct MCV MCH MCHC RDW Plt Count MPV Immature Gran % (Auto) Neut % (Auto) Lymph % (Auto) Turner % (Auto) Eos % (Auto) Baso % (Auto) Lymph # (Auto) Turner # (Auto) Eos # (Auto) Baso # (Auto) Abs Immat Gran (auto) Absolute Neuts (auto) Absolute Nucleated RBC Nucleated RBC % Sodium Potassium Chloride Carbon Dioxide Anion Gap BUN Creatinine Estim Creat Clear Calc Estimated GFR Glucose POC Capillary Glucose 159 H Calcium Magnesium Total Bilirubin AST ALT Alkaline Phosphatase Total Protein Albumin Discharge Plan Discharge Attending physician on discharge: Anabella Abreu Consulting providers: Harish Martin; Judi Olivares Discharging Clinician: Anabella Abreu Anticipated Discharge Date/Time: 04/25/23 11:56 Patient Disposition: NH Skilled Nursing/Asst Living Activity: as tolerated Diet: as tolerated and regular Discharge Instructions: stroke work up, eleva
[2023-04-25 12:06] LABS: Glucose Point of Care 190 mg/dl (65-105)
--- NOTE | 2023-04-25 12:38 | WPDNEURCNPN ---
Assessment and Plan Assessment and plan (1) TIA involving carotid artery: Code(s): G45.1 - Carotid artery syndrome (hemispheric) Status: Acute Plan 1 with negative MRI and moderate stenosis of the left internal carotid artery cavernous segment and moderate narrowing secondary to atherosclerosis of the dominant left vertebral artery in addition mild stenosis of right internal carotid artery cavernous segment will benefit from the continuation of the aspirin, cholesterol lowering medications. Has already been evaluated by the documentation spec in no further cardiac workup planned, will add Plavix 75mg daily for the next 3 weeks as atrial fibrillation at this stage has not been document and the cardiologists have not suggested treatment for the diagnosis of AFib. will continue treatment for TIA Consult date: 04/25/23 HPI: Duran Jansen is a 82 year old maleAdmitted to the hospital through the emergency room where he was brought by the EMS with the information that he recently underwent cardiac catheterization on Sunday and when he arrived back to the facility within 20minutes. Was concerned about his facial droop on arrival of EMS he was alert oriented to self names of another date but definitely confused about the location he complained of right upper extremity numbness blood pressure was normal heart rate was 92 and 1040 and the EMS for concern about the left lower extremity to the week he was also minimally communicating as per the family his medications were multiple as outlined including the insulin he is not allergic to any medication but has ongoing history of multiple medical problem but particularly 1. Congestive heart failure 2. Diabetes mellitus 3. Hypertension 4. Parkinson's disease and 5. Diabetic neuropathy he has also undergone lobectomy of the lung and rotator cuff surgery of both shoulders is never smoker never alcohol intake ir since 1989 initial vital signs were normal routine lab studies were with blood sugar elevation and anemia initial CT scan of the head was negative for the bleed, CTA documented moderate stenosis of left internal carotid artery cavernous segment an MRI of the brain documented no acute process only age-related changes including mild to moderate diffuse volume loss PMFSH Past Medical History Medical History Aspergillus BPH (benign prostatic hyperplasia) Calcium deposit in bursa, left knee CHF (congestive heart failure) Diabetes Esophageal reflux disease Hernia History of atrial fibrillation History of CHF (congestive heart failure) History of diabetic neuropathy legs and feet History of hypertension History of osteoporosis History of Parkinson's disease HTN (hypertension) Surgical History Surgical History H/O hernia repair History of appendectomy History of lobectomy of lung History of lung surgery (~1989) History of rotator cuff surgery both shoulders. One in the 80's and the other shoulder in the 90's S/P ablation of atrial fibrillation Family History Family History Mother Arthritis Heart disease Cerebrovascular accident Acute myocardial infarction Congestive heart failure Father Diabetes mellitus Sibling Asthma Social History Social History Social History: The patient resides at [facility]. His is the durable power pin sorter and bagger for healthcare. They have 4 children. 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 He denies any alcohol drugs or marijuana. Code status Dnr Years smoked: 30 Smoking status: Never smoker Tobacco type: pipe and cigars Second hand tobacco smoke exposure: No Alcohol intake: never Alcohol use details: quit in 1989 Substance use: never Substance use type: does not use Last use: no drink since 1999
[2023-04-25 13:27] LABS: SARS-CoV-2 RNA PCR Negative (Negative)
--- NOTE | 2023-04-25 14:23 | PC.NURSE ---
Discharged to [facility]- report given to Izabella Means LPN- Nursing and Rehab - pt discharged via facility van-
== END 2023-04-25 14:15 ==
LOC: ANHED 21:09 → ANHIMU 23:32
PROVIDERS: Internal Medicine; Admitting Provider Internal Medicine; Emergency Provider Student in an Organized Health Care Education/Training Program; PCP Hospitalist; Visit Provider Internal Medicine
DX: G45.1 Carotid artery syndrome (hemispheric) (principal); R77.8 Other specified abnormalities of plasma proteins; R79.89 Other specified abnormal findings of blood chemistry; N40.0 Benign prostatic hyperplasia without lower urinary tract symptoms; M81.0 Age-related osteoporosis without current pathological fracture; G93.40 Encephalopathy, unspecified; R53.1 Weakness; I11.0 Hypertensive heart disease with heart failure; I50.9 Heart failure, unspecified; I48.91 Unspecified atrial fibrillation; G20.C Parkinsonism, unspecified; Z20.822 Contact with and (suspected) exposure to COVID-19; R94.31 Abnormal electrocardiogram [ECG] [EKG]; K21.9 Gastro-esophageal reflux disease without esophagitis; E11.40 Type 2 diabetes mellitus with diabetic neuropathy, unspecified; Z95.818 Presence of other cardiac implants and grafts; F17.290 Nicotine dependence, other tobacco product, uncomplicated; Z79.1 Long term (current) use of non-steroidal anti-inflammatories (NSAID); Z79.01 Long term (current) use of anticoagulants; Z79.4 Long term (current) use of insulin; Z79.899 Other long term (current) drug therapy; Z82.49 Family history of ischemic heart disease and other diseases of the circulatory system
CPT/HCPCS: 36415; 70450; 70496; 70553; 71045; 80053; 81001; 82948; 83735; 84484; 85025; 87635; 93005; 96372; 96374; 97161; 97166; 99285; A9270; A9577; G0378; J1650; J1815; J3475; J7120; Q9967

== ENCOUNTER 2023-05-12 11:18 | Observation (INO) | payer MEDICARE, MEDICAID, SELFPAY ==
[2023-05-12] VITALS (35 sets, daily range): BP systolic 71–118; BP diastolic 57–87; PULSE 71–111; RESP 13–26; TEMP 36.3–36.6; O2SAT 94–100
--- NOTE | ~2023-05-12 | US_ITS ---
US renal BI 05/13/2023 17:32 Procedure: Realtime transabdominal ultrasound of the kidneys and bladder. Indication: Acute renal insufficiency Comparison: No prior studies for comparison. Findings: Renal echotexture is normal bilaterally without hydronephrosis, contour deforming mass or r enal calculus. The right kidney measures 9.2 cm and left kidney measures 10 cm. Bladder within scott l limits. Impression: 1: Unremarkable renal ultrasound. No stones, masses or hydronephrosis. Reviewed, dictated and finalized at location A. SING AND CUTTING PRESS FEEDER Impression: 1: Unremarkable renal ultrasound. No stones, masses or hydronephrosis.
--- NOTE | ~2023-05-12 | US_ITS ---
EXAMINATION:US venous doppler LE BI INDICATION:Leg edema TECHNIQUE: Multiple grayscale, color flow and Doppler images of the right and left lower extremity de ep venous systems were obtained and reviewed. COMPARISON:04/24/2022 FINDINGS: The common femoral, superficial femoral and popliteal veins demonstrate normal respiratory variation, augmentation and compressibility. Color flow is also seen within the posterior tibial, pe roneal, greater saphenous and profunda veins. IMPRESSION: 1: No lower extremity deep venous thrombosis. Reviewed, dictated and finalized at location A. ONAL SALES MANAGER
--- NOTE | ~2023-05-12 | XR_ITS ---
XR chest 2V DATE: 05/12/2023 14:04 INDICATION: Weakness TECHNIQUE: AP and lateral views COMPARISON: 04/22/2023 portable AP chest FINDINGS: Status post right thoracotomy with volume loss of the right lung compared to left. Heart size appears borderline, not optimally evaluated on AP projection because of magnification. There is suggestion of minimal infiltrate or atelectasis at the right lung base. The lungs otherwise appear clear. No pleural effusion or pulmonary vascular congestion or pneumothorax is detected. Diffuse osteopenia. IMPRESSION: Status post right thoracotomy and partial pneumonectomy Minimal infiltrate or atelectasis at the right lung base Reviewed, dictated and finalized at location A. ITY DEVELOPER
--- NOTE | 2023-05-12 12:44 | ECG_ITS ---
Measurements Intervals [place] Rate: 106 P: -28 IL: 270 QRS: -9 QRSD: 128 T: 28 QT: 369 QTc: 490 Interpretive Statements SINUS TACHYCARDIA WITH FIRST DEGREE AV BLOCK MODERATE INTRAVENTRICULAR CONDUCTION DELAY [110+ ms QRS DURATION] MODERATE ST DEPRESSION [0.05+ mV ST DEPRESSION] COMPARED TO ECG 04/23/2023 08:15:41 SINUS TACHYCARDIA NOW PRESENT FIRST DEGREE AV BLOCK NOW PRESENT INTRAVENTRICULAR CONDUCTION DELAY NOW PRESENT ST (T WAVE) DEVIATION NOW PRESENT Electronically Signed On 05-12-2023 19:52:30 LABORATORY DIRECTOR by Meaghan Sanchez M.D.
[2023-05-12 13:34] LABS: Basophils Percent Auto 0.4 % (0.2-1.2); Eosinophils Absolute Auto 0.1 K/mm3 (0-0.3); Eosinophils Percent Auto 0.6 % (0-4.4); Hematocrit 32.5 % (42.0-52.0); Hemoglobin 10.5 g/dL (14.0-18.0); Immature Granulocyte Absolute 0.03 K/mm3 (0.00-0.031); Immature Granulocyte Percent A 0.4 % (0-0.5); Lymphocytes Absolute Auto 1.37 K/mm3 (0.9-3.2); Lymphocytes Percent Auto 16.7 % (18.3-44.2); Mean Corpuscular HGB Conc 32.3 g/dl (32-36); Mean Corpuscular Hemoglobin 31.2 pg (26-34); Mean Corpuscular Volume 96.4 fl (80-100); Mean Platelet Volume 11.4 fl (7.4-10.4); Monocytes Absolute Auto 0.6 K/mm3 (0.1-0.6); Monocytes Percent Auto 6.7 % (2.6-8.5); Neutrophils Absolute Auto 6.2 K/mm3 (1.3-6.7); Neutrophils Percent Auto 75.2 % (45.5-73.1); Platelet Count Result 201 k/mm3 (150-375); Red Blood Count 3.37 M/mm3 (4.6-6.20); Red Cell Distribution Width 15.2 % (11.5-14.5); White Blood Count 8.2 K/mm3 (4.5-10.0)
[2023-05-12 13:44] LABS: INR 1.1; Prothrombin Time 14.5 Seconds (11.1-14.7)
[2023-05-12 13:48] LABS: Alanine Aminotransferase 15 U/L (6-50); Albumin Level 3.6 g/dL (3.5-5.1); Alkaline Phosphatase 75 U/L (38-126); Anion Gap 9 mmol/L (8-16); Aspartate Amino Transferase 20 U/L (17-59); Bilirubin,Total 0.6 mg/dL (0.2-1.3); Blood Urea Nitrogen 28 mg/dL (9-20); Calcium 8.7 mg/dL (8.4-10.2); Carbon Dioxide 20 mmol/L (22-30); Chloride 107 mmol/L (98-107); Estimated CRCL calculation 34 ml/min; Estimated Glomerular Filt Rate 39; Glucose 163 mg/dL (65-110); Potassium 4.4 mmol/L (3.4-5.0); Sodium 136 mmol/L (137-145)
--- NOTE | 2023-05-12 13:52 | ED.GENADULT ---
HPI - General Adult General Chief complaint: Altered Mental Status Stated complaint: ALOC Time Seen by Provider: 05/12/23 13:10 Source: patient, family and EMS Limitations: no limitations History of Present Illness HPI narrative: 87 years old white male count from long-term by ambulance because of lethargy and low blood pressure. Patient reported that he was eating his breakfast and have trouble to swallow the food he tried again and again without success, no witness, patient reported possible blacking out at that time. Not sure. Currently his main complaint that he feels like he need to pee all the time. He denies any fever, chills, nausea, vomiting, chest pain, shortness of breath, back pain or abdominal pain or headache or focal neuro deficit. is telling me that patient had heart procedure April 20 and started on amiodarone at that time Related Data Home Medications Medication Instructions Recorded Confirmed vitamin B complex (B 1 tablet PO DAILY 11/17/20 04/22/23 Complex-Vitamin B12 tablet) metoprolol tartrate 25 mg tablet 25 mg PO BID 07/27/21 04/23/23 calcium carbonate 600 mg calcium 600 mg PO DAILY 01/19/22 04/22/23 (1,500 mg) tablet ergocalciferol (vitamin D2) 1,250 1,250 mcg PO WEEKLY 01/19/22 04/23/23 mcg (50,000 unit) capsule (Vitamin D2) linagliptin 5 mg tablet 5 mg PO QAM 02/09/22 04/23/23 loperamide 2 mg capsule 2 mg PO Q8H PRN Diarrhea 02/09/22 04/22/23 acetaminophen 325 mg tablet 650 mg PO BID 01/06/23 04/23/23 diphenhydramine HCl 25 mg capsule 25 mg PO Q8H PRN Itching 01/06/23 04/23/23 (Benadryl) insulin aspart U-100 100 unit/mL 5 unit subcut TIDWMEAL 01/06/23 04/23/23 (3 mL) subcutaneous pen (Novolog FlexPen U-100 Insulin aspart) insulin glargine 100 unit/mL 28 unit subcut HS 01/06/23 04/23/23 subcutaneous solution (Lantus U-100 Insulin) insulin syringe-needle U-100 01/06/23 04/23/23 potassium chloride 10 mEq 10 meq PO DAILY 01/06/23 04/23/23 tablet,extended release pravastatin 20 mg tablet 20 mg PO HS 01/06/23 04/23/23 glucosamine sulfate 500 mg tablet 500 mg PO BID 04/22/23 04/22/23 carbamide peroxide 6.5 % ear drops 5 drp EACH EAR DAILY 04/23/23 04/23/23 (Debrox) famotidine 20 mg tablet 20 mg PO BID 04/23/23 04/23/23 insulin aspart U-100 100 unit/mL See Protocol subcut TIDWMEAL 04/23/23 04/23/23 (3 mL) subcutaneous pen (Novolog FlexPen U-100 Insulin aspart) omeprazole 20 mg capsule,delayed 20 mg PO EVERY OTHER DAY 04/23/23 04/23/23 release Allergies Allergy/AdvReac Type Severity Reaction Status Date / Time No Known Allergies Allergy Verified 05/12/23 11:37 Review of Systems Review of Systems: All systems reviewed & are unremarkable except as noted in HPI and below PMFSH Past Medical History Medical History Aspergillus BPH (benign prostatic hyperplasia) Calcium deposit in bursa, left knee CHF (congestive heart failure) Diabetes Esophageal reflux disease Hernia History of atrial fibrillation History of CHF (congestive heart failure) History of diabetic neuropathy legs and feet History of hypertension History of osteoporosis History of Parkinson's disease HTN (hypertension) Surgical History Surgical History H/O hernia repair History of appendectomy History of lobectomy of lung History of lung surgery (~1989) History of rotator cuff surgery both shoulders. One in the 80's and the other shoulder in the 's S/P ablation of atrial fibrillation Family History Family History Mother Arthritis Heart disease Cerebrovascular accident Acute myocardial infarction Congestive heart failure Father Diabetes mellitus Sibling Asthma Social History Social History Social History: The patient resides at [facility]
[2023-05-12] MEDS: SODIUM CHLORIDE 0.9% IV 1,000 ML 999 ML IV CONT (14:25)
[2023-05-12 16:46] LABS: Appearance Urine Clear (Clear); Bilirubin Urine Negative (Negative); Blood Urine Negative (Negative); Color Urine Yellow (Yellow); Glucose Urine UA Negative (Negative); Ketones Urine Negative (Negative); Leukocyte Esterase Ur Negative LEU/UL (Negative); Nitrate Urine Negative (Negative); Protein Urine Negative (Negative); Urobilinogen Urine 0.2 mg/dL (<2.0)
[2023-05-12 16:54] LABS: Add Urine Microscopic? NO
[2023-05-12] MEDS: SODIUM CHLORIDE 0.9% IV 1,000 ML 150 ML IV CONT (18:06)
--- NOTE | 2023-05-12 19:15 | PC.NURSE ---
Attempted to call report to Nic ADAIR, the nurse stated you're going to overflow me to get this patient upstairs . This RN tried to tell her that she could speak to our ED charge nurse and was hung up on by Nic ADAIR. ED charge informed of the situation. Per ER charge nurse Svetlana ADAIR pt is to go to room 304-2 now.
--- NOTE | 2023-05-12 20:09 | PM.IMHP ---
H&P: HPI History of Present Illness Date/Time: 05/12/23 20:09 Chief Complaint: AMS Narrative: THIS IS AN 82-YEAR-OLD MALE WITH PAST MEDICAL HISTORY SIGNIFICANT FOR PARKINSON'S HAS, INSULIN-DEPENDENT DIABETES MELLITUS, HYPERTENSION, CHRONIC KIDNEY DISEASE, BENIGN PROSTATIC HYPERPLASIA, GERD. 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 PATIENT IS UNABLE TO GIVE MUCH HISTORY ON HIS ON. PRELIMINARY WORKUP WAS SIGNIFICANT FOR CREATININE OF 1.7. A CHEST X-RAY WAS REPORTED : XR chest 2V DATE: 05/12/2023 14:04 INDICATION: Weakness? TECHNIQUE: AP and lateral views? COMPARISON: 04/22/2023 portable AP chest? FINDINGS: Status post right thoracotomy with volume loss of the right lung compared to left. Heart size appears borderline, not optimally evaluated on AP projection because of magnification. There is suggestion of minimal infiltrate or atelectasis at the right lung base. The lungs otherwise appear clear. No pleural effusion or pulmonary vascular congestion or pneumothorax is detected. Diffuse osteopenia. IMPRESSION: Status post right thoracotomy and partial pneumonectomy Minimal infiltrate or atelectasis at the right lung base Review of Systems Review of Systems: ROS unobtainable: Yes unobtainable due to mental status (LETHARGY/OBTUNDATION) [facility] Past Medical History Medical History Aspergillus BPH (benign prostatic hyperplasia) Calcium deposit in bursa, left knee CHF (congestive heart failure) Diabetes Esophageal reflux disease Hernia History of atrial fibrillation History of CHF (congestive heart failure) History of diabetic neuropathy legs and feet History of hypertension History of osteoporosis History of Parkinson's disease HTN (hypertension) Surgical History Surgical History H/O hernia repair History of appendectomy History of lobectomy of lung History of lung surgery (~1989) History of rotator cuff surgery both shoulders. One in the 80's and the other shoulder in the 90's S/P ablation of atrial fibrillation Family History Family History Mother Arthritis Heart disease Cerebrovascular accident Acute myocardial infarction Congestive heart failure Father Diabetes mellitus Sibling Asthma Social History Social History Social History: The patient resides at [facility]. His is the durable power can maker for healthcare. They have 4 children. 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 He denies any alcohol drugs or marijuana. Code status Dnr Years smoked: 30 Smoking status: Never smoker Tobacco type: pipe and cigars Second hand tobacco smoke exposure: No Alcohol intake: never Alcohol use details: quit in 1989 Substance use: never Substance use type: does not use Last use: no drink since 1999 Lack of Transportation: No Lack of Food: Never True Current Housing: I Have Housing Concerned About Future Housing: No Difficulty Paying Gas/Electric Bills: No Difficulty Paying for Meds: No Currently Unemployed: No Education: High School Diploma/GED Difficulty w/ Childcare or Family Care: No Spiritual care concerns: No Meds Home Medications and Allergies Home Medications Medication Instructions Recorded Confirmed Type vitamin B complex (B 1 tablet PO DAILY 11/17/20 05/12/23 History Complex-Vitamin B12 tablet) lancets (OneTouch UltraSoft #200 ea 05/10/21 05/12/23 Rx Lancets) furosemide 40 mg tablet (Lasix) 40 mg PO QAM #90 tabs 07/25/21 05/12/23 Rx losartan 100 mg tablet 100 mg PO DAILY #90 tabs 07/27/21 05/12/23 Rx metformin 1,000 mg tablet 1,000 mg PO BID #180 tabs 0
[2023-05-13] VITALS (8 sets, daily range): BP systolic 97–117; BP diastolic 60–79; PULSE 98–116; RESP 16–18; TEMP 36.3–36.4; O2SAT 97–99
[2023-05-13] MEDS: AZITHROMYCIN 500 MG/NS 250 ML 500 MG/250 ML BAG 250 MG IVPB (02:33)
[2023-05-13] MEDS: cefTRIAXone 2 GM/NS 100 ML 2 GM/100 ML BAG IVPB (02:33)
[2023-05-13] MEDS: SODIUM CHLORIDE 0.9% IV 1,000 ML 150 ML IV CONT (05:00)
[2023-05-13 06:29] LABS: Anion Gap 8 mmol/L (8-16); Blood Urea Nitrogen 22 mg/dL (9-20); Calcium 8.3 mg/dL (8.4-10.2); Carbon Dioxide 22 mmol/L (22-30); Chloride 109 mmol/L (98-107); Estimated CRCL calculation 38 ml/min; Estimated Glomerular Filt Rate 45; Glucose 109 mg/dL (65-110); Potassium 3.7 mmol/L (3.4-5.0); Sodium 139 mmol/L (137-145)
[2023-05-13 08:25] LABS: Glucose Point of Care 97 mg/dl (65-105)
[2023-05-13] MEDS: AMIODARONE HCL 200 MG TABLET 400 MG PO ×2 (08:57→21:00)
[2023-05-13] MEDS: CALCIUM CARBONATE (OSCAL) 500 MG TABLET PO (08:57)
[2023-05-13] MEDS: TAMSULOSIN HCL 0.4 MG CAPSULE PO (08:57)
[2023-05-13] MEDS: CARBIDOPA/LEVODOPA 25/100 MG TABLET 1 TABLET PO ×4 (08:57→20:59)
[2023-05-13] MEDS: FAMOTIDINE 20 MG TABLET PO ×2 (08:57→20:59)
[2023-05-13] MEDS: CLOPIDOGREL BISULFATE 75 MG TABLET PO (09:01)
[2023-05-13] MEDS: RIVASTIGMINE TARTRATE 1.5 MG CAPSULE 3 MG PO ×2 (09:04→21:00)
[2023-05-13] MEDS: ACETAMINOPHEN 325 MG TABLET 650 MG PO (09:06)
[2023-05-13 11:39] LABS: Glucose Point of Care 316 mg/dl (65-105)
[2023-05-13] MEDS: FERROUS SULFATE 325 MG TABLET DR PO (12:12)
[2023-05-13] MEDS: INSULIN ASPART (*BKC) 100 UNITS/ML SUB-Q ×2 (12:15→17:52)
--- NOTE | 2023-05-13 13:31 | PM.IMPN ---
Progress Note: A&P Assessment and Plan (1) Hypotension: Code(s): I95.9 - Hypotension, unspecified Status: Acute Assessment and Plan: Patient was hypotensive on presentation with blood pressure dropping to 71/60. Orthostatic hypotension was documented but this is not clearly defined in the nursing notes. Patient's blood pressure was persistently low yesterday. He was treated with IV fluids with ultimately improvement. Patient is on losartan, metoprolol and Lasix. These medications have been held. Hypotension probably related to dehydration. Continue IV fluids but will decrease the rate. Continue to monitor blood pressure (2) Syncope: Code(s): R55 - Syncope and collapse Status: Acute Assessment and Plan: Patient had episode of syncope prior to admission. It occurred during the choking episode although patient's blood pressure was also extremely low so suspect more likely that his syncopal episode is related to hypotension. Continue to monitor on telemetry. Check Echo (3) Choking episode: Code(s): R09.89 - Other specified symptoms and signs involving the circulatory and respiratory systems Status: Acute Assessment and Plan: Patient with choking episode prior to syncopal episode. Change to soft diet Speech therapy to see (4) BRITNEY (acute kidney injury): Code(s): N17.9 - Acute kidney failure, unspecified Status: Acute Assessment and Plan: Baseline creatinine is normal 1.1-1.2. Creatinine 1.7 on admission. UA normal. Suspect prerenal azotemia from Lasix. Also on losartan. Consider ATN from hypotension. IV fluids started. Renal function improved. Check renal ultrasound at appropriate labs. Continue IV fluids. (5) A-fib: Code(s): I48.91 - Unspecified atrial fibrillation Status: Acute Assessment and Plan: EKG on admission shows sinus tachycardia with first-degree AV block. Telemetry showing possible episodes of atrial fibrillation but also could be PACs. Not on anticoagulation. Amiodarone has been continued. Metoprolol on hold. Follow telemetry (6) CHF (congestive heart failure): Code(s): I50.9 - Heart failure, unspecified Status: Chronic Assessment and Plan: He was patient with a history of CHF. Patient with chronic diastolic CHF by echocardiogram last year. Lasix on hold. Continue IV fluids but decrease rate. Monitor fluid status closely (7) Parkinson disease: Code(s): G20 - Parkinson's disease Status: Chronic Assessment and Plan: Stable. Choking episode could be related to Parkinson's or from weakness from the hypotension. Continue Sinemet. (8) Diabetes mellitus, insulin dependent (IDDM), controlled: Status: Chronic Assessment and Plan: A1c 7.1% in December. The patient's blood glucose was reviewed on 05/13 Glucose remains well controlled. Continue AccuCheks covering with sliding scale. Hypoglycemia protocol available as needed. Continue to monitor Plan DVT prophylax - SCDs Code status - DNR Subjective Date/time seen: 05/13/23 13:31 Interval history: 82yo male with CHF, DM, PD and AFib here for syncopal episodes after a chocking episode. Assuming care. Chart reviewed. He feels well. Toelrting current diet No CP or SOB. No n/v. Has a chronic cough. Not choking of food. Exam Narrative: AF 97.3 114/72 111 16 97% ra Gen - NARD sitting up in a chair feeding himself Chest - CTA bilaterally, nml RR CV - RRR S1/S2. Tele showing occasional AFib Abd - Soft, NT/ND, Positive BS Ext - trace R>L pedal edema. Negative Javier's Neuro - Alert and appropriate. speech clear. Psych - Nml mood and affect Skin - Warm and dry Objective Data Vital Signs Vital Signs: Vital Signs - 24 hr 05/12/23 14:31 05/12/23 13:46 05/12/23 14:25 Temperature Pulse Rate 106 H 108 H 107 H Respiratory Rate 15 15 26 H Blood Pressure 91/75 L 9
[2023-05-13 17:14] LABS: Glucose Point of Care 185 mg/dl (65-105)
[2023-05-13] MEDS: SODIUM CHLORIDE 0.9% IV 1,000 ML 70 ML IV CONT (17:51)
[2023-05-13 20:34] LABS: Glucose Point of Care 212 mg/dl (65-105)
[2023-05-13] MEDS: INSULIN GLARGINE (*BKC) 100 UNITS/ML 22 UNITS SUB-Q (20:57)
[2023-05-13 21:06] LABS: Sodium Urine Random 102 meq/L
[2023-05-13 22:00] LABS: Eosinophil Urine None Seen % (None Seen); Urine Eos QC 2nd Tech Confirmed
[2023-05-14] VITALS (11 sets, daily range): BP systolic 118–134; BP diastolic 75–79; PULSE 93–110; RESP 14–18; TEMP 36.2–36.3; O2SAT 98
[2023-05-14] MEDS: cefTRIAXone 2 GM/NS 100 ML 2 GM/100 ML BAG IVPB ×2 (00:37→23:40)
[2023-05-14] MEDS: AZITHROMYCIN 500 MG/NS 250 ML 500 MG/250 ML BAG 250 MG IVPB ×2 (00:39→23:40)
[2023-05-14 06:39] LABS: Basophils Percent Auto 0.5 % (0.2-1.2); Eosinophils Absolute Auto 0.2 K/mm3 (0-0.3); Eosinophils Percent Auto 2.9 % (0-4.4); Hematocrit 30.6 % (42.0-52.0); Immature Granulocyte Absolute 0.03 K/mm3 (0.00-0.031); Immature Granulocyte Percent A 0.5 % (0-0.5); Lymphocytes Absolute Auto 1.41 K/mm3 (0.9-3.2); Lymphocytes Percent Auto 21.7 % (18.3-44.2); Mean Corpuscular HGB Conc 32.7 g/dl (32-36); Mean Corpuscular Hemoglobin 31.6 pg (26-34); Mean Corpuscular Volume 96.8 fl (80-100); Mean Platelet Volume 11.3 fl (7.4-10.4); Monocytes Absolute Auto 0.6 K/mm3 (0.1-0.6); Monocytes Percent Auto 9.5 % (2.6-8.5); Neutrophils Absolute Auto 4.2 K/mm3 (1.3-6.7); Neutrophils Percent Auto 64.9 % (45.5-73.1); Platelet Count Result 160 k/mm3 (150-375); Red Blood Count 3.16 M/mm3 (4.6-6.20); White Blood Count 6.5 K/mm3 (4.5-10.0)
[2023-05-14 07:06] LABS: Anion Gap 10 mmol/L (8-16); Blood Urea Nitrogen 14 mg/dL (9-20); Calcium 7.9 mg/dL (8.4-10.2); Carbon Dioxide 20 mmol/L (22-30); Chloride 108 mmol/L (98-107); Creatine Kinase 25 U/L (55-170); Estimated CRCL calculation 47 ml/min; Estimated Glomerular Filt Rate 58; Glucose 207 mg/dL (65-110); Magnesium 1.3 mg/dL (1.6-2.3); Phosphorus 2.9 mg/dL (2.5-4.5); Potassium 3.5 mmol/L (3.4-5.0); Sodium 138 mmol/L (137-145)
[2023-05-14 08:06] LABS: Glucose Point of Care 163 mg/dl (65-105)
[2023-05-14 08:21] LABS: Hemoglobin A1C 7.1 % (<5.7)
[2023-05-14] MEDS: SODIUM CHLORIDE 0.9% IV 1,000 ML 70 ML IV CONT ×2 (09:02→21:09)
[2023-05-14] MEDS: polyethylene glycoL 3350 17 GM POWD.PACK PO (09:04)
[2023-05-14] MEDS: RIVASTIGMINE TARTRATE 1.5 MG CAPSULE 3 MG PO ×2 (09:04→21:00)
[2023-05-14] MEDS: AMIODARONE HCL 200 MG TABLET 400 MG PO ×2 (09:04→21:00)
[2023-05-14] MEDS: FAMOTIDINE 20 MG TABLET PO ×2 (09:05→21:01)
[2023-05-14] MEDS: CALCIUM CARBONATE (OSCAL) 500 MG TABLET PO (09:05)
[2023-05-14] MEDS: TAMSULOSIN HCL 0.4 MG CAPSULE PO (09:05)
[2023-05-14] MEDS: PANTOPRAZOLE 40 MG TABLET PO (09:05)
[2023-05-14] MEDS: CARBIDOPA/LEVODOPA 25/100 MG TABLET 1 TABLET PO ×4 (09:05→21:01)
[2023-05-14] MEDS: CLOPIDOGREL BISULFATE 75 MG TABLET PO (09:05)
[2023-05-14] MEDS: INSULIN ASPART (*BKC) 100 UNITS/ML SUB-Q (09:14)
--- NOTE | 2023-05-14 10:58 | PM.IMPN ---
Progress Note: A&P Assessment and Plan (1) Hypotension: Code(s): I95.9 - Hypotension, unspecified Status: Acute Assessment and Plan: Patient was hypotensive on presentation with blood pressure dropping to 71/60. Orthostatic hypotension was documented but this is not clearly defined in the nursing notes. . He was treated with IV fluids with ultimately improvement. Patient was on losartan, metoprolol and Lasix. These medications have been held. Hypotension probably related to dehydration and poor oral intake. Eating better here (50-100%) Will let IV fluids run out. Continue to monitor blood pressure Repeat orthostatic vitals Check cortisol and TSH (2) Syncope: Code(s): R55 - Syncope and collapse Status: Acute Assessment and Plan: Patient had episode of syncope prior to admission. It occurred during the choking episode although patient's blood pressure was also extremely low so suspect more likely that his syncopal episode is related to hypotension. Continue to monitor on telemetry. Echo penidng (3) Choking episode: Code(s): R09.89 - Other specified symptoms and signs involving the circulatory and respiratory systems Status: Acute Assessment and Plan: Patient with choking episode prior to syncopal episode. Changed to a soft diet Speech therapy to see (4) BRITNEY (acute kidney injury): Code(s): N17.9 - Acute kidney failure, unspecified Status: Acute Assessment and Plan: Baseline creatinine is normal 1.1-1.2. Creatinine 1.7 on admission. UA normal. Suspect prerenal azotemia from Lasix and dehydration. Also on losartan. Consider ATN from hypotension. IV fluids started. Renal US normal. Ueos negative. TCK 25 Renal function back to baseline Wean off IV fluids (5) A-fib: Code(s): I48.91 - Unspecified atrial fibrillation Status: Acute Assessment and Plan: EKG on admission shows sinus tachycardia with first-degree AV block. Telemetry showing possible episodes of atrial fibrillation but also could be PACs. Not on anticoagulation. Amiodarone has been continued. Metoprolol on hold. Follow telemetry (6) CHF (congestive heart failure): Code(s): I50.9 - Heart failure, unspecified Status: Chronic Assessment and Plan: He was patient with a history of CHF. Patient with chronic diastolic CHF by echocardiogram last year. Lasix on hold. Continue IV fluids but let this run out Monitor fluid status closely (7) Parkinson disease: Code(s): G20 - Parkinson's disease Status: Chronic Assessment and Plan: Stable. Choking episode could be related to Parkinson's or from weakness from the hypotension. Continue Sinemet. Speech to see (8) Diabetes mellitus, insulin dependent (IDDM), controlled: Status: Chronic Assessment and Plan: A1c 7.1%. The patient's blood glucose was reviewed on 05/14 Glucose higher overnight. Continue AccuCheks covering with sliding scale. Hypoglycemia protocol available as needed. Continue to monitor. Advance lantus Plan DVT prophylax - SCDs Code status - DNR Subjective Date/time seen: 05/14/23 10:58 Interval history: 82yo male with CHF, DM, PD and AFib here for syncopal episodes after a chocking episode. No CP or SOB. No lightheadedness with standing. +flatus. Not eating much at the [place] Exam Narrative: AF 97.4 118/75 105 18 98% ra Gen - NARD sitting up in a chair Chest - distant BS, nml RR CV - irregularly irregular Abd - Soft, NT/ND, Positive BS Ext - trace pedal edema Neuro - Alert and appropriate. speech clear. Psych - Nml mood and affect Skin - Warm and dry Objective Data Vital Signs Vital Signs: Vital Signs - 24 hr 05/13/23 14:15 05/13/23 14:49 05/13/23 12:00 Temperature Pulse Rate 116 H Respiratory Rate Blood Pressure Pulse Oximetry Oxygen Delivery Room Air Room Air
[2023-05-14 11:25] LABS: Glucose Point of Care 156 mg/dl (65-105)
[2023-05-14] MEDS: ENOXAPARIN 40 MG/0.4 ML SYRINGE SUB-Q (13:04)
[2023-05-14] MEDS: MAGNESIUM SULF 2 GM/WATER 50ML 2 GM/50 ML BAG IVPB (13:04)
[2023-05-14] MEDS: FERROUS SULFATE 325 MG TABLET DR PO (13:05)
[2023-05-14] MEDS: INSULIN ASPART (*BKC) 100 UNITS/ML 7 UNITS SUB-Q ×2 (13:06→17:51)
--- NOTE | 2023-05-14 14:36 | PCSTNOTE ---
Bedside swallowing evaluation completed. Cursory oral peripheral examination results within functional limits. Patient seen upright in bed, with head of bed elevated. Trials of thin liquid by straw, pureed consistency by spoon, and solid consistency by hand were given. Patient demonstrated no signs of aspiration. No other swallowing difficulty was observed. Per patient, the choking episode he experienced recently was due to having excessive mucous drainage which he thought caused him to inhale when trying to manage his secretions. Recommendation: soft bite sized diet (6), thin liquids (1). Please note that silent aspiration cannot be ruled out at bedside and can be evaluated with a modified barium swallow study. No further speech therapy is recommended. Thank you for the referral of this patient.
[2023-05-14 16:56] LABS: Glucose Point of Care 106 mg/dl (65-105)
[2023-05-14 20:27] LABS: Glucose Point of Care 167 mg/dl (65-105)
[2023-05-14] MEDS: INSULIN GLARGINE (*BKC) 100 UNITS/ML 26 UNITS SUB-Q (21:01)
[2023-05-14] MEDS: MELATONIN 3 MG TABLET PO (23:49)
[2023-05-15] VITALS (10 sets, daily range): BP systolic 121–135; BP diastolic 74–100; PULSE 89–117; RESP 13–20; TEMP 36.2–36.3; O2SAT 94–96
--- NOTE | 2023-05-15 | ECHO_ITS ---
Patient Info Name: Duran Jansen Age: 82 years : 1940 Gender: Male Ht: 69 in Wt: 200 lbs BSA: 2.12 m2 HR: 112 bpm BP: 121 / 74 mmHg Heart Rhythm: Atrial Fibrillation Technical Quality: Poor Exam Date: 05/15/2023 10:41 AM Exam Location: Echo Lab Patient Status: Outpatient Admit Date: 05/12/2023 Staff Ordering Physician: Julian Bull MD [employer] Systems Operations Manager: Emily Duran RDCS Attending Provider: Victorino Watson MD Exam Type: CA echo dop color flow w con Study Info Indications - syncope Complete two-dimensional, color flow and Doppler transthoracic echocardiogram is performed with contrast to opacify the left ventricle and to improve the deliniation of the left ventricle endocardial borders. Contrast/Agitated Saline Contrast/Ag. Saline: Definity Amount: 3.00 ml Reason for Poor Study: poor echocardiographic windows Summary 1. Left ventricular chamber dimension is normal. 2. Left ventricular systolic function is normal, estimated at 55-60%. 3. There is mildly increased left ventricular wall thickness. 4. Right ventricular systolic function is normal. 5. Left atrial chamber dimension is severely enlarged. 6. There is moderate aortic valve stenosis with a peak velocity of 214.12 cm/s, mean gradient of 12 mmHg, and aortic valve area of 1.08 cm2. 7. There is mild to moderate mitral valve regurgitation. 8. There is mild tricuspid valve regurgitation. 9. There is small anterior pericardial effusion. Left Ventricle Left ventricular chamber dimension is normal. Left ventricular systolic function is normal, estimated at 55-60%. There is mildly increased left ventricular wall thickness. Right Ventricle Right ventricular chamber dimension is normal. Right ventricular systolic function is normal. Left Atria Left atrial chamber dimension is severely enlarged. Right Atria Right atrial chamber dimension is normal. Atrial Septum Intact interatrial septum visualized by color flow imaging. Aortic Valve The aortic valve is not well visualized. There is moderate aortic valve stenosis with a peak velocity of 214.12 cm/s, mean gradient of 12 mmHg, and aortic valve area of 1.08 cm2. There is no aortic valve regurgitation. There is mild aortic valve calcification. Pulmonic Valve The pulmonic valve is not well visualized. Mitral Valve There is mild to moderate mitral valve regurgitation. The mitral valve annulus is mildly calcified. Tricuspid Valve There is mild tricuspid valve regurgitation. Pericardium/Pleural There is small anterior pericardial effusion. Inferior Vena Cava Inferior vena cava is not well visualized. Aorta The aortic root size at the sinus of Valsalva is normal. Left Ventricular Outflow Tract Name Value Normal LVOT 2D LVOT Diameter 2.08 cm LVOT Doppler LVOT Peak Gradient 1 mmHg LVOT Mean Gradient 1 mmHg LVOT VTI 14.22 cm LVOT VTI/AV VTI Ratio 0.32 LVOT Stroke Volume 48.16 ml LVOT CO 6.57 l/min LVOT CI 3.09 L/min/m2 P
[2023-05-15] MEDS: ONDANSETRON INJ 4 MG/2 ML VIAL IV PUSH (02:48)
--- NOTE | 2023-05-15 07:11 | ECG_ITS ---
Measurements Intervals [place] Rate: 99 P: CT: 0 QRS: -3 QRSD: 106 T: 29 QT: 389 QTc: 501 Interpretive Statements ATRIAL FIBRILLATION MINIMAL ST DEPRESSION [0.025+ mV ST DEPRESSION] ABNORMAL RHYTHM ECG COMPARED TO ECG 05/12/2023 12:54:17 ATRIAL FIBRILLATION NOW PRESENT Electronically Signed On 05-15-2023 15:58:49 [employer] T[employer]ER by Koki Pastrana M.D.
[2023-05-15 07:46] LABS: Glucose Point of Care 129 mg/dl (65-105)
[2023-05-15] MEDS: polyethylene glycoL 3350 17 GM POWD.PACK PO (08:21)
[2023-05-15] MEDS: AMIODARONE HCL 200 MG TABLET 400 MG PO ×2 (08:21→20:21)
[2023-05-15] MEDS: RIVASTIGMINE TARTRATE 1.5 MG CAPSULE 3 MG PO ×2 (08:21→20:21)
[2023-05-15] MEDS: CALCIUM CARBONATE (OSCAL) 500 MG TABLET PO (08:22)
[2023-05-15] MEDS: CARBIDOPA/LEVODOPA 25/100 MG TABLET 1 TABLET PO ×4 (08:22→20:22)
[2023-05-15] MEDS: TAMSULOSIN HCL 0.4 MG CAPSULE PO (08:22)
[2023-05-15] MEDS: FAMOTIDINE 20 MG TABLET PO ×2 (08:22→20:21)
[2023-05-15] MEDS: CLOPIDOGREL BISULFATE 75 MG TABLET PO (08:22)
[2023-05-15 09:06] LABS: Basophils Percent Auto 0.5 % (0.2-1.2); Eosinophils Absolute Auto 0.1 K/mm3 (0-0.3); Eosinophils Percent Auto 1.6 % (0-4.4); Hematocrit 29.6 % (42.0-52.0); Hemoglobin 9.8 g/dL (14.0-18.0); Immature Granulocyte Absolute 0.04 K/mm3 (0.00-0.031); Immature Granulocyte Percent A 0.5 % (0-0.5); Lymphocytes Percent Auto 16.8 % (18.3-44.2); Mean Corpuscular HGB Conc 33.1 g/dl (32-36); Mean Corpuscular Hemoglobin 31.9 pg (26-34); Mean Corpuscular Volume 96.4 fl (80-100); Mean Platelet Volume 11.6 fl (7.4-10.4); Monocytes Absolute Auto 0.6 K/mm3 (0.1-0.6); Monocytes Percent Auto 7.7 % (2.6-8.5); Neutrophils Absolute Auto 6.1 K/mm3 (1.3-6.7); Neutrophils Percent Auto 72.9 % (45.5-73.1); Platelet Count Result 162 k/mm3 (150-375); Red Blood Count 3.07 M/mm3 (4.6-6.20); Red Cell Distribution Width 14.7 % (11.5-14.5); White Blood Count 8.3 K/mm3 (4.5-10.0)
[2023-05-15 09:27] LABS: Troponin I < 0.012 ng/mL (0.000-0.034)
[2023-05-15 09:29] LABS: Albumin Level 2.9 g/dL (3.5-5.1); Anion Gap 9 mmol/L (8-16); Blood Urea Nitrogen 9 mg/dL (9-20); Calcium 7.9 mg/dL (8.4-10.2); Carbon Dioxide 19 mmol/L (22-30); Chloride 108 mmol/L (98-107); Estimated CRCL calculation 52 ml/min; Estimated Glomerular Filt Rate > 60; Glucose 139 mg/dL (65-110); Magnesium 1.8 mg/dL (1.6-2.3); Phosphorus 2.9 mg/dL (2.5-4.5); Sodium 136 mmol/L (137-145)
[2023-05-15] MEDS: PERFLUTREN LIPID MICROSPHERES 1.5 ML VIAL DILUTED TO 10 ML TOTAL VOLUME IV PUSH (11:00)
--- NOTE | 2023-05-15 11:33 | IVDEFINITY ---
Prior to administration of IV Definity the patient was educated on the risks and benefits of the imaging enhancing agent including potential adverse side effects. The patient verbalized understanding. Allergies were verified. No exclusion criteria were identified and at least one of the following inclusion criteria were met: 1) physician request, 2) patient technically difficult to image (per the [place] [employer] guidelines of two or more segments not discernable within the apical view), or 3) questionable left ventricular function. ?
[2023-05-15 12:08] LABS: Glucose Point of Care 264 mg/dl (65-105)
[2023-05-15] MEDS: INSULIN ASPART (*BKC) 100 UNITS/ML SUB-Q (12:11)
[2023-05-15] MEDS: FERROUS SULFATE 325 MG TABLET DR PO (12:12)
[2023-05-15] MEDS: ENOXAPARIN 40 MG/0.4 ML SYRINGE SUB-Q (12:12)
[2023-05-15] MEDS: INSULIN ASPART (*BKC) 100 UNITS/ML 7 UNITS SUB-Q ×2 (12:12→17:35)
--- NOTE | 2023-05-15 15:54 | PM.DS ---
DS: Admitting Diagnosis Discharge Date 05/15/23 Admitting Diagnosis Syncope and HoTN DS: Discharge Diagnosis Discharge Diagnosis (1) Hypotension: Code(s): I95.9 - Hypotension, unspecified Status: Acute (2) Syncope: Code(s): R55 - Syncope and collapse Status: Acute (3) Choking episode: Code(s): R09.89 - Other specified symptoms and signs involving the circulatory and respiratory systems Status: Acute (4) BRITNEY (acute kidney injury): Code(s): N17.9 - Acute kidney failure, unspecified Status: Acute (5) A-fib: Code(s): I48.91 - Unspecified atrial fibrillation Status: Acute (6) CHF (congestive heart failure): Code(s): I50.9 - Heart failure, unspecified Status: Chronic (7) Parkinson disease: Code(s): G20 - Parkinson's disease Status: Chronic (8) Diabetes mellitus, insulin dependent (IDDM), controlled: Status: Chronic DS: Summary Hospital Course Reason for hospitalization: 82yo male with CHF, DM, PD and AFib here for syncopal episodes after a choking episode and was also hypotensive. Please see H&P for details. Hospital Course: Patient was hypotensive on presentation with blood pressure dropping to 71/60.? Orthostatic hypotension was documented but this was not clearly defined in the nursing notes.?He was treated with IV fluids with improvement.? Patient was on losartan, metoprolol and Lasix.? These medications were held.?Hypotension probably related to dehydration and poor oral intake. Consider also related to his Parkinson. Eating better here. Cortisol and TSH levels normal. Patient had an episode of syncope prior to admission.? It occurred during the choking episode per the noted but states pateint was not choking but that he was unresponsive just staring off related to the patient's low blood pressure. Telemetry showing intermittent AFib. Echo showing EF 55-60%, LAE, moderate (NAYA 1.08cm2) and mild-moderate MR. He had issues with bleeding so he is off anticoagulation and also is s/p left atrial appendage occlusion device placement on 04/20/[address] [facility] [address] Riggs. No choking episodes here. Speech therapy saw the patient and recommended soft and bite sized. Creatinine 1.7 on admission.? UA normal. Baseline creatinine is normal 1.1-1.2. Suspect prerenal azotemia from Lasix and dehydration.? Also on losartan. Renal US normal. Ueos negative. TCK 25. Renal function returned to baseline. EKG on admission shows sinus tachycardia with first-degree AV block.? Telemetry showing episodes of atrial fibrillation. Amiodarone was continued.? Metoprolol was held. He has a hx of diasolic CHF. Lasix on hold. Blood pressure remained stable. Able to stop IV fluids and he was able to maintain his blood pressure. He was not orthostatic after re-hydration. He overall did well and was able to be discharged back to the [facility] on 05/15/23. Status at Discharge Cognitive/behavioral status at discharge: stable Time Spent with Patient Time attestation: Total time spent providing and/or coordinating discharge services: 35 minutes Time spent: Greater than 30 minutes Exam Narrative: AF 97.1 135/66 105 20 96% ra Gen - NARD sitting up in a chair Chest - left base crackles o/w clear, nml RR CV - irregularly irregular Abd - Soft, NT/ND, Positive BS Ext - trace pedal edema. pre=patella pain to the right knee Psych - Nml mood and affect Skin - Warm and dry DS: Data Data Completed and Pending Labs on day of discharge: Labs from last 24 hours 05/15/23 05/15/23 05/15/23 11:16 08:02 07:40 WBC 8.3 RBC 3.07 L Hgb 9.8 L Hct 29.6 L MCV 96.4 MCH 31.9 MCHC 33.1 RDW 14.7 H Plt Count 162 MPV 11.6 H Immature Gran % (Auto) 0.5 Neut % (Auto) 72.9 Lymph % (Auto) 16.8 L [place] % (Auto) 7.7 Eos % (Auto) 1.6 Baso % (Auto) 0.5 Lymph # (Auto) 1.40 [place] # (Auto) 0.6 Eos # (Au
[2023-05-15 16:39] LABS: SARS-CoV-2 RNA PCR Negative (Negative)
[2023-05-15 18:05] LABS: Glucose Point of Care 139 mg/dl (65-105)
[2023-05-15] MEDS: INSULIN GLARGINE (*BKC) 100 UNITS/ML 26 UNITS SUB-Q (20:22)
[2023-05-15 22:18] LABS: Glucose Point of Care 158 mg/dl (65-105)
== END 2023-05-15 20:50 ==
LOC: ANHED 18:03 → ANH3MEDSUR 05-15 11:20
PROVIDERS: Admitting Provider Family Medicine; Emergency Provider Emergency Medicine; PCP Hospitalist; Visit Provider Internal Medicine
DX: I95.1 Orthostatic hypotension (principal); R09.89 Other specified symptoms and signs involving the circulatory and respiratory systems; N17.9 Acute kidney failure, unspecified; I11.0 Hypertensive heart disease with heart failure; I50.9 Heart failure, unspecified; I48.91 Unspecified atrial fibrillation; G20.C Parkinsonism, unspecified; R00.0 Tachycardia, unspecified; R53.1 Weakness; R53.83 Other fatigue; Z90.2 Acquired absence of lung [part of]; B44.9 Aspergillosis, unspecified; I08.3 Combined rheumatic disorders of mitral, aortic and tricuspid valves; R60.0 Localized edema; Z20.822 Contact with and (suspected) exposure to COVID-19; N40.0 Benign prostatic hyperplasia without lower urinary tract symptoms; R94.31 Abnormal electrocardiogram [ECG] [EKG]; K21.9 Gastro-esophageal reflux disease without esophagitis; M81.0 Age-related osteoporosis without current pathological fracture; R19.7 Diarrhea, unspecified; E11.9 Type 2 diabetes mellitus without complications; Z87.891 Personal history of nicotine dependence; Z79.1 Long term (current) use of non-steroidal anti-inflammatories (NSAID); Z79.4 Long term (current) use of insulin; Z82.49 Family history of ischemic heart disease and other diseases of the circulatory system
CPT/HCPCS: 36415; 71046; 76775; 80048; 80053; 80069; 81003; 82533; 82550; 82570; 82948; 83036; 83735; 84300; 84443; 84484; 85025; 85610; 85730; 85999; 87635; 92610; 93005; 93970; 96361; 96365; 96366; 96372; 96375; 97161; 97165; 99285; A9270; C8929; G0378; J0456; J0696; J1650; J1815; J2405; J3475; J7030; Q9957